=== PATIENT | female | born 1985 | race African-American/Black ===

== ENCOUNTER 2016-12-04 13:09 | Emergency (ER) | payer MEDICAID ==
[~2016-12-04] VITALS: Ht 152.4 cm; Wt 52.2 kg
[~2016-12-04 13:09] MED LIST: BREA1EAC5 MC; CEFU250T PO; CEPH-507 PO; CIPR-225 PO; CIPR500T4 PO; CRS350T PO; DCS100C PO; FAMO20TA5 PO; HYDR-3454 PO; HYDR-3720 PO; HYDR-3812 PO; HYDR-757 PO; IBP800T PO; MAGN800O PO; METR500T PO; METR500T21 PO; NAPR-243 PO; NITR100C3 PO; OMG1KC PO; ONDA4TAB8 PO; ONDAN4ODT PO; OXYC-202 PO; OXYC-465 PO; PNT40TEC PO; PREN1TAB71 PO; PROM25TA14 PO; SULF1TAB35 PO; TRM50T PO
--- OUTSIDE RECORDS SUMMARY | 2016-12-04 13:14 | XMS REPORT | Continuity of Care Document ---
Author Author [facility] Organization [facility] Address Unknown Phone Unavailable Care Team Providers Care Feather Separator Name Role Phone Self, Referral PCP Unavailable Source Comments Some departments are not documenting in the electronic medical record. If you do not see the information that you expected, contact Release of Information in the Health Information Management department at [phone] for further assistance in locating additional records.[facility] Active Allergies and Adverse Reactions No Known Allergies Current Medications Prescription Sig. Disp. Refills Start End Date Status Date oxycodone/acetaminophen Take 1-2 Tabs by mouth 30 0 06/25/20 Active (PERCOCET) 5/325 mg Every 4-6 Hours as needed 08 tablet for Pain. ibuprofen (MOTRIN) 600 mg Take 1 Tab by mouth Every 30 0 06/25/20 Active tablet 6 Hours as needed for 08 Pain. docusate (COLACE) 100 mg Take 1 Cap by mouth Twice 60 1 06/25/20 Active capsule Daily as needed for 08 Constipation. ferrous sulfate (IRON) Take 1 Tab by mouth Twice 60 1 06/25/20 Active 325 mg (65 mg Iron) Daily With Meals. 08 tablet Active Problems Problem Noted Date 06/25/2008 Anemia of mother, with delivery(648.21) 06/25/2008 Premature rupture of membranes in , delivered 06/25/2008 Social History Tobacco Use Types Packs/Day Years Used Date Former Smoker Cigarettes 0.25 Quit: 12/26/2007 Alcohol Use Drinks/Week oz/Week Comments No Last Filed Vital Signs Vital Sign Reading Time Taken Blood Pressure 116/72 06/25/2008 3:00 PM CDT Pulse 106 06/25/2008 3:00 PM CDT Temperature 37.3 C (99.1 F) 06/25/2008 3:00 PM CDT Respiratory Rate - - Height 1.524 m (5') 06/22/2008 8:00 AM CDT Weight 65.318 kg (144 lb) 06/22/2008 8:00 AM CDT Body Mass Index 28.12 06/22/2008 8:00 AM CDT Oxygen Saturation 100% 06/25/2008 3:00 PM CDT Plan of Care Health Maintenance Due Date Last Done Comments Physical (Comprehensive) 1992 Exam Pertussis Vaccine 1996 Tetanus Vaccine 2002 Cervical Cancer Screening 2006 Influenza Vaccine 05/27/2016 Results from Last 3 Months Not on file
[2016-12-04] MEDS ORDERED: LIDOCAINE/EPI 1%-1:100,000 (XYLOCAINE) 20ML INJ ONE (14:45)
--- NOTE | 2016-12-04 15:15 | ED Integumentary General ---
General Chief Complaint: Skin/Wound Problems Stated Complaint: SWOLLEN VAGINAL GLAND Nursing Triage Note: PT C/O INFECTED GLAND ON GENITAL AREA. Source: patient Exam Limitations: no limitations History of Present Illness Time seen by provider: 15:14 Initial Comments To ER with a swollen left labia since this morning. She has a history of recurrent left Bartholin's gland abscess. She has had surgical treatment of this by Dr. Treviño last year. Timing/Duration: just prior to arrival Severity: moderate Associated Symptoms: No fever Allergies and Home Medications Allergies Coded Allergies: No Known Drug Allergies (Verified , 01/08/10) Constitutional: see HPINo chills, No fever EENTM: see HPI Respiratory: no symptoms reported Cardiovascular: no symptoms reported Genitourinary: no symptoms reported Musculoskeletal: no symptoms reported Skin: no symptoms reported Psychiatric/Neurological: No Symptoms Reported Endocrine: No Symptoms Reported Hematologic/Lymphatic: No Symptoms Reported Past Bicunhp-Uarrmo-Gcbtvf Hx Patient Social History Type Used: Cigarettes Former Smoker/When Quit: Sep 26, 2011 Recent Foreign Travel: No Contact w/Someone Who Travel: No Recent Infectious Disease Expo: No Recent Hopitalizations: No Immunizations Up To Date Tetanus Booster (TDap): More than 5yrs Seasonal Allergies Seasonal Allergies: Yes Surgeries HX Surgeries: Yes (GLAND REMOVED ON GENITAL AREA. 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 Genitourinary Hx Genitourinary Disorders: No Gastrointestinal Hx Gastrointestinal Disorders: Yes Gastrointestinal Disorders: Pancreatitis Musculoskeletal Hx Musculoskeletal Disorders: No Endocrine Hx Endocrine Disorders: No HEENT HX ENT Disorders: No Cancer Hx Cancer: No Psychosocial Hx Psychiatric Problems: Yes Behavioral Health Disorders: Anxiety, Bipolar, Depression Integumentary HX Skin/Integumentary Disorder: No Blood Transfusions Hx Blood Disorders: No Family Medical History Significant Family History: No Pertinent Family Hx Family Medial History: Congestive heart failure G8 SISTER Family history: Diabetes mellitus G8 SISTER History of - anemia 19 MOTHER G8 SISTER History of - disorder G8 SISTER (MS) No Family History of: Abdominal aortic aneurysm Alcoholism Cancer Dementia Family history: Alzheimer's disease Family history: Arthritis Family history: Asthma Family history: Breast disease Family history: Cardiovascular disease Family history: Gastrointestinal disease Family history: Hypertension Family history: Thyroid disorder Hereditary disease History of - respiratory disease Kidney disease Myocardial infarction Parkinson's disease Prostate cancer Psychotic disorder Seizure disorder Stroke Physical Exam Vital Signs Vital Sign - Last 12Hours 12/04/16 14:27 Temp 99.0 Pulse 85 Resp 18 B/P 128/77 Pulse Ox 100 O2 Delivery Room Air Capillary Refill : Less Than 3 Seconds General Appearance: WD/WN no apparent distress HEENT: PERRL/EOMI normal ENT inspection Neck: non-tender full range of motion Cardiovascular: regular rate, rhythm no murmur Respiratory: normal breath sounds no respiratory distress no accessory muscle use Gastrointestinal: non tender soft Neurologic/Psychiatric: alert normal mood/affect oriented x 3 Skin Problem Character: erythema (and swelling of the left labia.) I&D : Blade Size: 11 Progress Swelling of the left labia. This was anesthetized with 1 percent lidocaine with epinephrine. A stab incision was then made the region of fluctuance. Bloody material was expressed. However upon pressing on this area there was purulent foul-smelling material that was expressed from further within the vaginal canal. Progress/Results/Core Measures Results/Orders My Orders Orders-SASHA CARLSON APRN Lidocaine/Epi 1% 1:100,000 (Xylocaine /E (12/04/16 14:45) Clindamycin Injection (Cleocin Injection (12/04/16 15:45) Oxycodone/Apap 5/325mg Tablet (Percocet (12/04/16 15:45) Vital Signs/I&O Vital Sign - Last 12Hours 12/04/16 14:27 Temp 99.0 Pulse 85 Resp 18 B/P 128/77 Pulse Ox 100 O2 Delivery Room Air Blood Pressure Mean: 94 Departure Impression Impression: Primary Impression: Left genital labial abscess Disposition: HOME, SELF-CARE Condition: Stable Departure-Patient Inst. Decision time for Depature: 15:45 Referrals: [facility] (PCP/Family) Primary Care Physician Patient Instructions: Bartholin's Gland Cyst Add. Discharge Instructions: 1. Follow-up with Dr. Treviño 2. Pain medication, antibiotics and warm baths as directed. Warm baths should be at least twice per day. 3. Return to ER for any worsening swelling, fevers or other concerns 4. Start the antibiotics today. I sent them to her pharmacy. All discharge instructions reviewed with patient and/or family. Voiced understanding. Scripts Clindamycin HCl 300 Mg [id number] Mg PO TID #21 CAP Prov:SASHA CARLSON APRN 12/04/16 Hydrocodone/Acetaminophen ([place] 5-325 Tablet)1 Each Tablet1 Each PO Q4H PRN PAIN #20 TAB Do not fill unless clindamycin is also filled. Prov:SASHA CARLSON APRN 12/04/16 SASHA CARLSON APRN Dec 04, 2016 15:15
[2016-12-04] MEDS ORDERED: CLINDAMYCIN 600 MG/4ML (CLEOCIN) VIAL IM ONE (15:45)
[2016-12-04] MEDS ORDERED: oxyCODONE/APAP 5/325MG (PERCOCET 5) TABLET PO ONE (15:45)
[2016-12-04] MEDS ORDERED: CLIN300C11 PO (15:47)
[2016-12-04] MEDS ORDERED: HYDR-757 PO (15:47)
[2016-12-04] MEDS ORDERED: CLINDAMYCIN 300 MG/2ML (CLEOCIN) VIAL IM SCH (16:00)
[2016-12-04 16:27] VITALS: BP 128/77
[2016-12-09] MEDS ORDERED: METR500T PO (12:10)
[2016-12-09] MEDS ORDERED: CIPR500S2 PO (12:10)
[2016-12-09] MEDS ORDERED: OXYC-465 PO (12:10)
== END 2016-12-04 16:27 | disposition home or self-care (01) ==
LOC: EDUNIT# 13:09 → ER 13:10
DX: N76.4 Abscess of vulva (principal)
CPT/HCPCS: 96372

== ENCOUNTER 2016-12-09 09:05 | Day surgery (SDC) | payer MEDICAID ==
[~2016-12-09] VITALS: Ht 152.4 cm; Wt 52.3 kg
[~2016-12-09 09:05] MED LIST changes: +CLIN300C11 PO
--- OUTSIDE RECORDS SUMMARY | 2016-12-09 09:12 | XMS REPORT | Continuity of Care Document ---
Author Author [facility] Organization [facility] Address Unknown Phone Unavailable Care Team Providers Care Drapery And Upholstery Estimator Name Role Phone Self, Referral PCP Unavailable Source Comments Some departments are not documenting in the electronic medical record. If you do not see the information that you expected, contact Release of Information in the Health Information Management department at [phone] for further assistance in locating additional records.[facility] Active Allergies and Adverse Reactions No Known [...]
[2016-12-09] MEDS ORDERED: fentaNYL INJECTION 100 MCG/2 ML AMP IVP ONE (10:15)
[2016-12-09 10:33] LABS: BASOPHILS % (AUTO) 0 % (0-10); EOSINOPHILS # (AUTO) 0.2 10^3/uL (0.0-0.3); EOSINOPHILS % (AUTO) 2 % (0-10); LYMPHOCYTES # (AUTO) 2.3 X 10^3 (1.0-4.0); LYMPHOCYTES % (AUTO) 19 % (12-44); MEAN CORPUSCULAR HEMOGLOBIN 28 PG (25-34); MEAN CORPUSCULAR HGB CONC 32 G/DL (32-36); MEAN CORPUSCULAR VOLUME 86 FL (80-99); MONOCYTES # (AUTO) 0.8 X 10^3 (0.0-1.0); MONOCYTES % (AUTO) 7 % (0-12); NEUTROPHILS # (AUTO) 8.5 X 10^3 (1.8-7.8); NEUTROPHILS % (AUTO) 72 % (42-75); PLATELET COUNT 294 10^3/uL (130-400); RED BLOOD COUNT 4.14 10^6/uL (4.35-5.85); RED CELL DISTRIBUTION WIDTH 14.9 % (10.0-14.5); WHITE BLOOD COUNT 11.8 10^3/uL (4.3-11.0)
[2016-12-09] MEDS ORDERED: fentaNYL INJECTION 100 MCG/2 ML AMP IVP STA (10:58)
[2016-12-09] MEDS ORDERED: LIDOCAINE 1% INJ 20 ML (XYLOCAINE) VIAL INJ STA (11:06)
[2016-12-09 11:07] LABS: BILIRUBIN,URINE NEGATIVE (NEGATIVE); KETONES,URINE NEGATIVE (NEGATIVE); LEUKOCYTE ESTERASE ,URINE 3+ (NEGATIVE); NITRITE,URINE NEGATIVE (NEGATIVE); PH,URINE 6.5 (5-9); PROTEIN,URINE NEGATIVE (NEGATIVE); UROBILINOGEN,URINE NORMAL (NORMAL)
[2016-12-09 11:19] LABS: WBC,URINE 50-100 /HPF
[2016-12-09] MEDS ORDERED: LACTATED RINGERS 1,000 ML IV ONE ×2 (11:48→12:23)
--- NOTE | 2016-12-09 11:48 | ED GU-Female ---
General Chief Complaint: Skin/Wound Problems Stated Complaint: VAG ABSCESS Nursing Triage Note: HAD ABCESS DRAINED ON TUESDAY. NOW WORSE TODAY. MOM WITH PT. AT THIS TIME Nursing Sepsis Screen: No Definite Risk History of Present Illness Time seen by provider: 10:50 Initial Comments Evaluation for recurrence of left labial abscess, she has been on clindamycin 300 mg 3 times a day since 12/04/16. She has previously been treated for similar condition on 07/12/15 and had surgery for a marsupialization of the left labia on 07/15/17 Timing/Duration: getting worse Severity/Quality: severe (pain 10 over 10) Activities at Onset: none Prior Genitourinary Problems: similar symptoms Sexual [place] History: less than 2 months ago Modifying Factors: Improves With Analgesics, Improves With Resting Associated Symptoms: denies symptoms Allergies and Home Medications Allergies Coded Allergies: No Known Drug Allergies (Verified , 01/08/10) Home Medications Ciprofloxacin 500 Mg/5 Ml Angelic..rec #14 500 MG PO BID Prescribed by: CASSANDRA SANDOVAL on 12/09/16 1210 Clindamycin HCl 300 Mg Capsule #21 300 MG PO TID Prescribed by: SASHA CARLSON on 12/04/16 1547 Metronidazole 500 Mg Tablet #14 500 MG PO BID Prescribed by: CASSANDRA SANDOVAL on 12/09/16 1210 Oxycodone HCl/Acetaminophen 1 Each Tablet #60 1-2 TAB PO Q4H PRN PRN PAIN Prescribed by: CASSANDRA SANDOVAL on 12/09/16 1210 Constitutional: no symptoms reported see HPI EENTM: see HPI Respiratory: no symptoms reported see HPI Cardiovascular: no symptoms reported see HPI Gastrointestinal: no symptoms reported see HPI Genitourinary: see HPI pain (left labia) : No (previous tubal ligation) Musculoskeletal: no symptoms reported see HPI Skin: no symptoms reported see HPI Psychiatric/Neurological: No Symptoms Reported See HPI Endocrine: No Symptoms Reported See HPI Hematologic/Lymphatic: No Symptoms Reported See HPI All Other Systemes Reviewed Negative Unless Noted: Yes Past Zubjahk-Mjtugi-Epatmj Hx Patient Social History Alcohol Use: Rarely Uses Recreational Drug Use: No (drank tonight) Type Used: Cigarettes Former Smoker/When Quit: Sep 26, 2011 Recent Foreign Travel: No Contact w/Someone Who Travel: No Recent Infectious Disease Expo: No Recent Hopitalizations: No Immunizations Up To Date Tetanus Booster (TDap): More than 5yrs Seasonal Allergies Seasonal Allergies: Yes Surgeries HX Surgeries: Yes (GLAND REMOVED ON GENITAL AREA. 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 Genitourinary Hx Genitourinary Disorders: No Gastrointestinal Hx Gastrointestinal Disorders: Yes Gastrointestinal Disorders: Pancreatitis Musculoskeletal Hx Musculoskeletal Disorders: No Endocrine Hx Endocrine Disorders: No HEENT HX ENT Disorders: No Cancer Hx Cancer: No Psychosocial Hx Psychiatric Problems: Yes Behavioral Health Disorders: Anxiety, Bipolar, Depression Integumentary HX Skin/Integumentary Disorder: No Blood Transfusions Hx Blood Disorders: No Reviewed Nursing Assessment Reviewed/Agree w Nursing PMH: Yes Family Medical History Significant Family History: No Pertinent Family Hx Family Medial History: Congestive heart failure G8 SISTER Family history: Diabetes mellitus G8 SISTER History of - anemia 19 MOTHER G8 SISTER History of - disorder G8 SISTER (MS) No Family History of: Abdominal aortic aneurysm Alcoholism Cancer Dementia Family history: Alzheimer's disease Family history: Arthritis Family history: Asthma Family history: Breast disease Family history: Cardiovascular disease Family history: Gastrointestinal disease Family history: Hypertension Family history: Thyroid disorder Hereditary disease History of - respiratory disease Kidney disease Myocardial infarction Parkinson's disease Prostate cancer Psychotic disorder Seizure disorder Stroke Physical Exam Vital Signs Vital Sign - Last 12Hours 12/09/16 12/09/16 09:54 12:12 Temp 98.6 Pulse 130 Resp 22 B/P 120/95 Pulse Ox 99 O2 Delivery Room Air Capillary Refill : Less Than 3 Seconds General Appearance: WD/WN no apparent distress HEENT: PERRL/EOMI normal ENT inspection TMs normal pharynx normal Neck: non-tender full range of motion supple normal inspection Cardiovascular: normal peripheral pulses regular rate, rhythm no murmur Respiratory: chest non-tender lungs clear normal breath sounds Gastrointestinal: normal bowel sounds non tender soft Genital/Rectal: tenderness (left labia) other (marked erythema induration and fluctuation left labia, extremely tender to palpation) Extremities: normal range of motion non-tender normal inspection no calf tenderness normal capillary refill Neurologic/Psychiatric: no motor/sensory deficits alert normal mood/affect oriented x 3 Skin: normal color warm/dry Lymphatic: inguinal node tender (L) Focused Exam Lactic Acid Level Progress/Results/Core Measures Results/Orders Lab Results Laboratory Tests Test 12/09/16 10:19 12/09/16 10:54 Range/Units Basophils # (Auto) 0.0 0.0-0.1 10^3/uL Basophils (%) (Auto) 0 0-10 % C-Reactive Protein High Sensitivity 0.85 H 0.00-0.50 MG/DL Eosinophils # (Auto) 0.2 0.0-0.3 10^3/uL Eosinophils (%) (Auto) 2 0-10 % Hematocrit 36 35-52 % Hemoglobin 11.5 11.5-16.0 G/DL Lymphocytes # (Auto) 2.3 1.0-4.0 X 10^3 Lymphocytes (%) (Auto) 19 12-44 % Mean Corpuscular Hemoglobin 28 25-34 PG Mean Corpuscular Hemoglobin Concent 32 32-36 G/DL Mean Corpuscular Volume 86 80-99 FL Mean Platelet Volume 11.0 H 7.4-10.4 FL Monocytes # (Auto) 0.8 0.0-1.0 X 10^3 Monocytes (%) (Auto) 7 0-12 % Neutrophils # (Auto) 8.5 H 1.8-7.8 X 10^3 Neutrophils (%) (Auto) 72 42-75 % Platelet Count 294 130-400 10^3/uL Red Blood Count 4.14 L 4.35-5.85 10^6/uL Red Cell Distribution Width 14.9 H 10.0-14.5 % White Blood Count 11.8 H 4.3-11.0 10^3/uL Ur Tricyclic Antidepressants Screen POSITIVE H NEGATIVE Urine Amphetamines Screen NEGATIVE NEGATIVE Urine Bacteria FEW H /HPF Urine Barbiturates Screen NEGATIVE NEGATIVE Urine Benzodiazepines Screen NEGATIVE NEGATIVE Urine Bilirubin NEGATIVE NEGATIVE Urine Cannabinoids Screen POSITIVE H NEGATIVE Urine Casts NONE /LPF Urine Clarity CLEAR Urine Cocaine Screen POSITIVE H NEGATIVE Urine Color YELLOW Urine Crystals NONE /LPF Urine Culture Indicated YES Urine Glucose (UA) NEGATIVE NEGATIVE Urine Ketones NEGATIVE NEGATIVE Urine Leukocyte Esterase 3+ H NEGATIVE Urine Methadone Screen NEGATIVE NEGATIVE Urine Methamphetamines Screen NEGATIVE NEGATIVE Urine Mucus NEGATIVE /LPF Urine Nitrite NEGATIVE NEGATIVE Urine Opiates Screen POSITIVE H NEGATIVE Urine Oxycodone Screen NEGATIVE NEGATIVE Urine Phencyclidine Screen NEGATIVE NEGATIVE Urine Propoxyphene Screen NEGATIVE NEGATIVE Urine Protein NEGATIVE NEGATIVE Urine RBC 2-5 H /HPF Urine RBC (Auto) 2+ H NEGATIVE Urine Specific [place] 1.010 L 1.016-1.022 Urine Squamous Epithelial Cells 5-10 /HPF Urine Urobilinogen NORMAL NORMAL MG/DL Urine WBC 50-100 H /HPF Urine pH 6.5 5-9 My Orders Orders-BRENDONCATRACHITA FIELD SERVICE CONSULTANT Ua Culture If Indicated (12/09/16 10:51) Fentanyl Injection (Sublimaze Injection (12/09/16 10:58) Lidocaine 1% Injection (Xylocaine 1% Inj (12/09/16 11:06) Urine Culture (12/09/16 10:54) Saline Lock/Iv-Start (12/09/16 11:48) Lactated Ringers (Lr 1000 Ml Iv Solution (12/09/16 11:48) Medications Given in ED Current Medications Medications Dose Ordered Sig/Deniz Route Start Time Stop Time Status Last Admin Dose Admin Fentanyl Citrate 75 mcg 75 mcg ONCE ONCE IVP 12/09/16 10:15 12/09/16 10:16 DC 12/09/16 10:23 75 MCG Lactated Ringer's 1,000 ml @ 0 mls/hr Q0M ONCE IV 12/09/16 11:48 12/09/16 11:49 DC 12/09/16 11:53 1,000 MLS/HR Vital Signs/I&O Vital Sign - Last 12Hours 12/09/16 12/09/16 12/09/16 12/09/16 09:54 12:12 14:20 14:50 Temp 98.6 98.6 98.7 Pulse 130 74 77 78 Resp 22 16 18 16 B/P 120/95 105/72 102/71 Pulse Ox 99 98 99 O2 Delivery Room Air Room Air Room Air Blood Pressure Mean: 103 Progress Note : Time: 10:50 Progress Note Evaluation for recurrence of abscess left labia. Patient had an I&D on 12/04/16 and was started on clindamycin 300 mg 3 times a day she's been taking this routinely. She is rating her pain at 10 out of 10, she's had fentanyl 75 g IV, will give her an additional 50 mg micrograms IV. Discussed with Dr. Treviño per phone, he recommended I&D with placement of a Word drain. Patient to remain nothing by mouth, until further tx. 1130 pain now 5 out of 10. No Word drains available, discussed with Dr. Treviño, he will plan to take her for outpatient surgery for I&D or excision of the Bartholin's gland. This was discussed with the patient she agrees with this treatment plan. 1150 after Kamila in the emergency department to evaluate patient Departure Impression Impression: Primary Impression: Abscess of Bartholin's gland Disposition: ADMITTED INPATIENT Condition: Stable Decision to Admit Reason: Admit from ER (General) Decision to Admit/Date: Dec 09, 2016 Time/Decision to Admit Time: 11:40 Departure-Patient Inst. Referrals: [facility] (PCP/Family) Primary Care Physician Scripts Ciprofloxacin (Cipro)500 Mg/5 Ml Angelic.[id number] Mg PO BID #14 TAB Prov:CASSANDRA TREVIÑO MD 12/09/16 Metronidazole (Flagyl)500 Mg [id number] Mg PO BID #14 TAB Prov:CASSANDRA TREVIÑO MD 12/09/16 Oxycodone HCl/Acetaminophen (Oxycodone-Acetaminophen 10-325)1 Each Tablet1-2 Tab PO Q4H PRN PAIN #60 TAB Prov:CASSANDRA TREVIÑO MD 12/09/16 CATRACHITA OLIVAS Dec 09, 2016 11:47
--- OUTSIDE RECORDS SUMMARY | 2016-12-09 11:55 | XMS REPORT | Continuity of Care Document ---
Author Author [facility] Organization [facility] Address Unknown Phone Unavailable Care Team Providers Care Lumber Tripper Name Role Phone Self, Referral PCP Unavailable Source Comments Some departments are not documenting in the electronic medical record. If you do not see the information that you expected, contact Release of Information in the Health Information Management department at [phone] for further assistance in locating additional records.[facility] Active Allergies and Adverse Reactions No [...]
--- OUTSIDE RECORDS SUMMARY | 2016-12-09 11:55 | XMS REPORT | Continuity of Care Document ---
Author Author [facility] Organization [facility] Address Unknown Phone Unavailable Care Team Providers Care Resource Manager Forester Name Role Phone Self, Referral PCP Unavailable Source Comments Some departments are not documenting in the electronic medical record. If you do not see the information that you expected, contact Release of Information in the Health Information Management department at [phone] for further assistance in locating additional records.[facility] Active Allergies and Adverse Reactions No Known [...]
[2016-12-09] MEDS ORDERED: CIPR500S2 PO (12:10)
[2016-12-09] MEDS ORDERED: METR500T PO (12:10)
[2016-12-09] MEDS ORDERED: OXYC-465 PO (12:10)
--- NOTE | 2016-12-09 12:11 | Discharge Instructions ---
Discharge Instructions Discharge Medications New, Converted or Re-Newed RX: RX on Chart Patient Instructions Patient Instructions: as directed Return to The Hospital For: as directed Activity & Diet Discharge Diet: No Restrictions Activity as Tolerated: Yes Orders-Post D/C & Referrals Follow Up Appt: Call to make follow up appt. for patient in 2 weeks. Activity: Rest for 24 hours, than as tolerated. Wound Care: Keep incisions clean and dry. Wash daily with soap and water. Please call in RX to patient pharmacy. Diet: As tolerated-Clear Liquids only if nauseated. Tomorrow, may shower or tub bathe as desired. No driving for 24 hours, no alcoholic beverages for 24 hours, and nothing per vagina (no tampons, douching, or intercourse) for 2 weeks. Patient to return to the clinic as soon as possible for: Temperature greater than 101F, Severe Pain, Foul discharge from incision or vagina, Excessive Bleeding (more than a period). CASSANDRA GUILLERMO MD Dec 09, 2016 12:11
[2016-12-09] MEDS ORDERED: KETOROLAC 30 MG/ML VIAL IVP ONE (12:15)
[2016-12-09] MEDS ORDERED: PROMETHAZINE INJ 25 MG/ML (PHENERGAN) AMP IM ONE (12:15)
[2016-12-09] MEDS ORDERED: MEPERIDINE (DEMEROL) INJ 100 MG/ML IM ONE (12:15)
--- NOTE | 2016-12-09 12:16 | History & Physical ---
History and Physical this patient is a 32-year-old 3 black female with recurrent left or ABSCESS. SHE REPORTS HAVING HAD 6 OF THESE IN THE LAST FEW YEARS. RECENTLY 10 AT 2016 SHE HAD THE SAME ABSCESS MARSUPIALIZED. SHE WAS SEEN IN THE ED 3 DAYS AGO FOR I&D OF THE LEFT OR PROLAPSE S. SHE WAS STARTED ON ANTIBIOTICS. THE ABSCESS HAS SINCE RECURRED. THE EMERGENCY DEPARTMENT DOES not FEEL THAT THEY CAN ADEQUATELY TREAT THIS. I discussed with the patient and recommendation at this point is to return to the OR and again marsupialize this abscess. When she is fully recovered we'll give consideration to additional surgery to completely excise the left Bartholin gland itself. currently the patient agrees with that plan. Allergies are none Medications are Cleocin 300 mg 3 a day Past medical history is negative Past surgical history includes 3 C-sections I&D of this Bartholin abscess several occasions and marsupialization on one other occasion OB history includes 4 pregnancies with 3 C-sections and 1 miscarriage patient's menstrual formula 16/regular/5 current contraception is tubal sterilization Family history is noncontributory Patient is has active or alcohol use. She does use some marijuana. History of system is as per above H ENT exam is normal Neck is supple no lymphadenopathy no thyromegaly Abdomen is soft nontender nondistended Extremities show no clubbing cyanosis. There is no Homans sign. There is a left Bartholin abscess Laboratory Tests Test 12/09/16 10:19 12/09/16 10:54 Range/Units Basophils # (Auto) 0.0 0.0-0.1 10^3/uL Basophils (%) (Auto) 0 0-10 % C-Reactive Protein High Sensitivity 0.85 H 0.00-0.50 MG/DL Eosinophils # (Auto) 0.2 0.0-0.3 10^3/uL Eosinophils (%) (Auto) 2 0-10 % Hematocrit 36 35-52 % Hemoglobin 11.5 11.5-16.0 G/DL Lymphocytes # (Auto) 2.3 1.0-4.0 X 10^3 Lymphocytes (%) (Auto) 19 12-44 % Mean Corpuscular Hemoglobin 28 25-34 PG Mean Corpuscular Hemoglobin Concent 32 32-36 G/DL Mean Corpuscular Volume 86 80-99 FL Mean Platelet Volume 11.0 H 7.4-10.4 FL Monocytes # (Auto) 0.8 0.0-1.0 X 10^3 Monocytes (%) (Auto) 7 0-12 % Neutrophils # (Auto) 8.5 H 1.8-7.8 X 10^3 Neutrophils (%) (Auto) 72 42-75 % Platelet Count 294 130-400 10^3/uL Red Blood Count 4.14 L 4.35-5.85 10^6/uL Red Cell Distribution Width 14.9 H 10.0-14.5 % White Blood Count 11.8 H 4.3-11.0 10^3/uL Urine Bacteria FEW H /HPF Urine Bilirubin NEGATIVE NEGATIVE Urine Casts NONE /LPF Urine Clarity CLEAR Urine Color YELLOW Urine Crystals NONE /LPF Urine Culture Indicated YES Urine Glucose (UA) NEGATIVE NEGATIVE Urine Ketones NEGATIVE NEGATIVE Urine Leukocyte Esterase 3+ H NEGATIVE Urine Mucus NEGATIVE /LPF Urine Nitrite NEGATIVE NEGATIVE Urine Protein NEGATIVE NEGATIVE Urine RBC 2-5 H /HPF Urine RBC (Auto) 2+ H NEGATIVE Urine Specific [place] 1.010 L 1.016-1.022 Urine Squamous Epithelial Cells 5-10 /HPF Urine Urobilinogen NORMAL NORMAL MG/DL Urine WBC 50-100 H /HPF Urine pH 6.5 5-9 work is as noted Assessment and plan left Bartholin abscess and possible UTI. Patient will undergo marsupialization of the Bartholin abscess. She'll be started on Flagyl and Cipro postoperatively which will cover a bladder infection empirically in any event and will be followed up in clinic in 2 weeks. Surgical risk recovery follow-up and potential complications were all reviewed. All of her questions rash. recurrent left Bartholin abscess Allergies and Home Medications Allergies Coded Allergies: No Known Drug Allergies (Verified , 01/08/10) Home Medications Ciprofloxacin 500 Mg/[address] [facility].rec #14 500 MG PO BID Prescribed by: CASSANDRA SANDOVAL on 12/09/16 1210 Clindamycin HCl 300 Mg Capsule #21 300 MG PO TID Prescribed by: SASHA CARLSON on 12/04/16 1547 Metronidazole 500 Mg Tablet #14 500 MG PO BID Prescribed by: CASSANDRA SANDOVAL on 12/09/16 1210 Oxycodone HCl/Acetaminophen 1 Each Tablet #60 1-2 TAB PO Q4H PRN PRN PAIN Prescribed by: CASSANDRA SANDOVAL on 12/09/16 1210 CASSANDRA GUILLERMO MD Dec 09, 2016 12:16
[2016-12-09] MEDS ORDERED: SEVOFLURANE (ULTANE) 15 ML INHAL SOLN ONE (12:23)
[2016-12-09] MEDS ORDERED: ONDANSETRON 4 MG/2 ML (SDV) Z0FRAN ONE (12:23)
[2016-12-09] MEDS ORDERED: fentaNYL INJECTION 100 MCG/2 ML AMP ONE (12:23)
[2016-12-09] MEDS ORDERED: proPOfol 200 MG/20 ML (DIPRIVAN) VIAL IV ONE (12:23)
[2016-12-09] MEDS ORDERED: SUCCINYLCHOLINE INJ 100 MG/5 ML SYR ONE (12:23)
[2016-12-09] MEDS ORDERED: MIDAZOLAM 2 MG/2 ML (VERSED) VIAL ONE (12:24)
[2016-12-09] MEDS ORDERED: morphine INJ 10 MG/ML 1ML (SYR OR VIAL) ONE (13:08)
[2016-12-09] MEDS ORDERED: HYDROmorphone (DILAUDID) 2 MG/ML VIAL IVP PRN (13:15)
[2016-12-09] MEDS ORDERED: ONDANSETRON 4 MG/2 ML (SDV) Z0FRAN IVP PRN (13:15)
[2016-12-09] MEDS ORDERED: morphine INJ 10 MG/ML 1ML (SYR OR VIAL) IVP PRN (13:15)
[2016-12-09] MEDS ORDERED: MEPERIDINE (DEMEROL) INJ 50 MG/ML IVP PRN (13:15)
[2016-12-09 14:20] VITALS: BP 105/72
[2016-12-09 14:50] VITALS: BP 102/71
[2016-12-09 15:10] VITALS: BP 118/72
[2016-12-09] MEDS: oxyCODONE/APAP 10/325MG (PERCOCET 10) TABLET PO PRN ×2 (15:29→20:58)
[2016-12-09] MEDS: D5 LR IV SOLUTION 1,000 ML IV SCH ×2 (15:29→20:06)
[2016-12-09] MEDS ORDERED: FLU TRIvalent (5 YOA+) 2016-17 (AFLURIA) 0.5 ML IM ONE (17:15)
[2016-12-09] MEDS: ONDANSETRON 4 MG/2 ML (SDV) Z0FRAN IVP PRN ×2 (19:25→23:50)
[2016-12-09 19:30] VITALS: BP 124/83
[2016-12-10] VITALS: BP 114/86
[2016-12-10] MEDS: D5 LR IV SOLUTION 1,000 ML IV SCH ×2 (03:15→07:54)
[2016-12-10] MEDS: oxyCODONE/APAP 10/325MG (PERCOCET 10) TABLET PO PRN ×3 (03:15→13:15)
[2016-12-10 04:00] VITALS: BP 113/74
[2016-12-10] MEDS: ONDANSETRON 4 MG/2 ML (SDV) Z0FRAN IVP PRN ×2 (04:24→08:28)
--- NOTE | 2016-12-10 07:40 | OPERATIVE REPORT ---
PROCEDURE PHYSICIAN: CASSANDRA GUILLERMO DATE OF PROCEDURE: 12/09/2016 DATE OF DICTATION: 12/09/2016 PREOPERATIVE DIAGNOSIS: Left Bartholin abscess. POSTOPERATIVE DIAGNOSIS: Left Bartholin abscess. OPERATIVE PROCEDURE: Marsupialization of left Bartholin abscess. OPERATIVE DESCRIPTION: With the patient in supine position, under satisfactory general anesthesia, she was repositioned in dorsal lithotomy position in the [facility] cane stirrups and prepped and draped in the usual fashion for vaginal surgery. The urinary bladder was emptied with a straight catheter. The patient had a large 3 cm abscess involving the inferior 3rd of her labia majora. A suture of 3-0 Vicryl was placed into and out of the abscess. Another suture was placed parallel to that and then incision was made between the 2 sutures. Both the midportion of each suture was then brought out through the opening cut in the middle and essentially tacked in the four cardinal locations, anterior, posterior, left and right lateral of the opening made into the cyst cavity. Large amount of purulent material was released on opening it. Culture for aerobes and anaerobes was obtained. Suture of number 3-0 Vicryl was then used between each of the cardinal stitches to affect marsupialization by suturing the skin to the cyst cavity lining. The 4 cardinal sutures were then tied as well, effectively marsupializing nicely the cyst. The cyst was irrigated before, during, and after the marsupialization. The speculum was placed in the vagina. The cervix exposed and a Gen-Probe was obtained to rule out the infectious etiology for her vaginal discharge as well. Sponge and needle counts were correct on completion of the procedure. Estimated blood loss was fairly minimal. The patient tolerated the procedure well, and was uneventfully awakened from general anesthesia and transferred to recovery room in stable condition with plans for discharge home PAR. Job ID: [id number] Dictated Date: 12/09/2016 12:54:37 Inserting Machine Operator Date: 12/10/2016 07:33:25 / jessica
--- NOTE | 2016-12-10 07:59 | Progress Note-Standard ---
Standard Progress Note Progress Notes/Assess & Plan Progress/Assessment & Plan Uma's without complaint. She feels markedly improved this morning. She is ambulating, voiding, told feel well has good pain control. Vital Signs Date Time Temp Pulse Resp B/P Pulse Ox O2 Delivery O2 Flow Rate FiO2 12/10/16 04:00 97.5 95 20 113/74 100 Room Air 12/10/16 00:00 97.9 78 20 114/86 100 Room Air 12/09/16 19:30 98.5 75 20 124/83 100 Room Air 12/09/16 15:15 Room Air 12/09/16 15:10 98.5 74 20 118/72 100 Room Air 12/09/16 14:50 98.7 78 16 102/71 99 Room Air 12/09/16 14:20 98.6 77 18 105/72 98 Room Air 12/09/16 12:12 74 16 99 12/09/16 09:54 98.6 130 22 120/95 Room Air I & O 12/10/16 07:00 Intake Total 2080 ml Output Total 1455 ml Balance 625 ml vital signs are stable. Patient afebrile. Abdomen is benign. Extremities show no clubbing cyanosis. No Homans sign. Assessment and plan status post marsupialization of left Bartholin abscess. Plan is for discharge home with follow-up in clinic Final Diagnosis the Bartholin abscess status post marsupialization CASSANDRA GUILLERMO MD Dec 10, 2016 7:59 am
[2016-12-10 08:00] VITALS: BP 125/84
[2016-12-10 12:00] VITALS: BP 128/84
[2016-12-31] MEDS ORDERED: CIPR250T3 PO (12:27)
[2016-12-31] MEDS ORDERED: OXYC-465 PO (12:27)
== END 2016-12-10 14:15 | disposition home or self-care (01) ==
LOC: EDUNIT# 09:05 → ER 09:08 → SDC 11:51 → 4TH 15:10 → SDC 12-10 14:15
PROVIDERS: ATTEND Obstetrics & Gynecology
DX: N75.1 Abscess of Bartholin's gland (principal)
CPT/HCPCS: 36415; 80306; 81000; 85025; 86141; 87070; 87075; 87077; 87088; 87186; 87205; 96374; 96376

== ENCOUNTER 2016-12-30 05:36 | Outpatient (CLI) | payer MEDICAID ==
[~2016-12-30] VITALS: Ht 152.4 cm; Wt 52.3 kg
[~2016-12-30 05:36] MED LIST changes: +CIPR500S2 PO
[2016-12-30] MEDS ORDERED: CIPR250T3 PO (12:37)
[2016-12-31] MEDS ORDERED: CIPR250T3 PO (12:27)
[2016-12-31] MEDS ORDERED: OXYC-465 PO (12:27)
== END 2016-12-30 13:18 ==
LOC: PREOP 05:36
PROVIDERS: ATTEND Obstetrics & Gynecology
DX: Z01.818 Encounter for other preprocedural examination (principal); N76.4 Abscess of vulva; D64.9 Anemia, unspecified

== ENCOUNTER 2016-12-31 11:11 | Day surgery (SDC) | payer MEDICAID ==
[~2016-12-31] VITALS: Ht 152.4 cm; Wt 52.3 kg
--- NOTE | 2016-12-31 07:04 | HISTORY AND PHYSICAL ---
DATE OF ADMISSION: 12/31/2016 DICTATING PHYSICIAN: Dr. Treviño. This patient is a 31-year-old G3, P3, LC 3 black female with chronic recurrent left Bartholin abscess. She has a left labial chronically infected mass. She has a fleshy mass on the right labia majora as well. She has had surgery over the last 6 months, 3 or 4 times for the left inferior labia majora abscesses. The plan is for an excision of the chronically infected mass as well as excision of the right labia majora fleshy lesion as well. The patient denies nausea or vomiting. She denies fever or chills. She is on antibiotics to suppress this abscess. ALLERGIES: None. MEDICATIONS: Cipro 250 mg twice a day. PAST MEDICAL HISTORY: Negative. PAST SURGICAL HISTORY: 1. The patient had deliveries x3. 2. She has had left Bartholin gland marsupialization twice within the last 2 years. 3. She had I\T\D of the left Bartholin's gland abscess at least 2 times and possibly 3 times in the last 2 years. OBSTETRIC HISTORY INCLUDES: C-sections x3. SPEECH LANGUAGE ASSISTANT HISTORY: 1. The patient menstrual formula is 16/regular/5. 2. Last Pap smear was performed at an outside clinic and I do not have the result. FAMILY HISTORY: Family history is negative for breast cancer, SPEECH LANGUAGE ASSISTANT cancer, diabetes or hereditary diseases. SOCIAL HISTORY: The patient is . She is a student. She uses occasional marijuana. She denies alcohol use. She has had chlamydia at some point in the past. PHYSICAL EXAM: HEENT: Normal. NECK: Supple with no lymphadenopathy. No thyromegaly. HEART: Regular rhythm with no murmur. CHEST: Clear to auscultation bilaterally. ABDOMEN: Soft, nontender, nondistended. EXTREMITIES: Extremities show no clubbing or cyanosis. There is no Homans sign. There is no peripheral edema. PELVIC EXAM: Reveals a normal internal and external genitalia except for an indurated somewhat erythematous mass involving the inferior 25 to 35% of the labia majora. There is a smaller fleshy mass at the superior margin of the right labia majora. This is approximately 6 mm in diameter. The introitus is normal as is the vaginal vault and the uterus. 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 PLAN: For definitive excision of this skin area and lesion from the left labia majora. The patient also has a right labia majora fleshy skin lesion that will be excised concurrently. Surgical risks, complications, recovery and follow-up have been fully discussed. The patient questions have been answered to her satisfaction. She is ready to proceed with the surgery. The patient was given Cipro 500 mg twice a day to take for the next week to suppress infection and inflammation in the intended surgical areas. Job ID: [id number] Dictated Date: 12/24/2016 11:22:00 Account Financial Manager Date: 12/24/2016 12:47:49/geovanna
[~2016-12-31 11:11] MED LIST changes: +CIPR250T3 PO
[2016-12-31] MEDS ORDERED: NS (IVPB) 50 ML ONE (11:16)
[2016-12-31] MEDS ORDERED: ceFAZolin 1,000 MG (ANCEF) VIAL ONE (11:16)
[2016-12-31] MEDS ORDERED: ceFAZolin 1 GM/NS 50 ML IVPB IV ONE ×2 (11:30)
[2016-12-31 12:00] VITALS: BP 120/84
[2016-12-31] MEDS ORDERED: MIDAZOLAM 2 MG/2 ML (VERSED) VIAL ONE (12:15)
[2016-12-31] MEDS ORDERED: proPOfol 200 MG/20 ML (DIPRIVAN) VIAL IV ONE ×2 (12:15→12:43)
[2016-12-31] MEDS ORDERED: ONDANSETRON 4 MG/2 ML (SDV) Z0FRAN ONE (12:15)
[2016-12-31] MEDS ORDERED: LIDOCAINE PF 2% 10 ML (XYLOCAINE) AMP ONE (12:15)
[2016-12-31] MEDS ORDERED: fentaNYL INJECTION 100 MCG/2 ML AMP ONE (12:15)
[2016-12-31] MEDS ORDERED: LACTATED RINGERS 1,000 ML IV ONE (12:15)
[2016-12-31] MEDS ORDERED: SCOPOLAMINE 1.5 MG (TRANSDERM-SCOP) PATCH ONE (12:18)
[2016-12-31] MEDS ORDERED: LACTATED RINGERS 1,000 ML IV PRN (12:20)
--- NOTE | 2016-12-31 12:26 | Progress Note-Pre Operative ---
Pre-Operative Progress Note H&P Reviewed The H&P was reviewed, patient examined and no changes noted. Date H&P Reviewed: Dec 31, 2016 Time H&P Reviewed: 12:25 Pre-Operative Diagnosis: REPEAT CURRENT LEFT bARTHOLIN ABSCESS, RIGHT LABIA SKIN MASS CASSANDRA GUILLERMO MD Dec 31, 2016 12:26 pm
[2016-12-31] MEDS ORDERED: OXYC-465 PO (12:27)
[2016-12-31] MEDS ORDERED: CIPR250T3 PO (12:27)
--- NOTE | 2016-12-31 12:29 | Discharge Instructions ---
Discharge Instructions Discharge Medications New, Converted or Re-Newed RX: RX on Chart Patient Instructions Patient Instructions: DIRECTED Return to The Hospital For: DIRECTED Activity & Diet Discharge Diet: No Restrictions Activity as Tolerated: Yes Orders-Post D/C & Referrals Follow Up Appt: Call to make follow up appt. for patient in 1 week. Activity: Rest for 24 hours, than as tolerated. Wound Care: Keep incisions clean and dry. Wash daily with soap and water. Diet: As tolerated-Clear Liquids only if nauseated. Tomorrow, may shower or tub bathe as desired. No driving for 24 hours, no alcoholic beverages for 24 hours. Patient to return to the clinic as soon as possible for: Temperature greater than 101F, Severe Pain, Foul discharge from incision or vagina, Excessive Bleeding (more than a period). CASSANDRA GUILLERMO MD Dec 31, 2016 12:29 pm
[2016-12-31] MEDS ORDERED: SCOPOLAMINE 1.5 MG (TRANSDERM-SCOP) PATCH TOP ONE (12:30)
[2016-12-31] MEDS ORDERED: KETOROLAC 30 MG/ML VIAL IVP ONE (12:30)
[2016-12-31] MEDS ORDERED: FAMOTIDINE 20MG/2ML IV (PEPCID) IV ONE (12:30)
[2016-12-31] MEDS ORDERED: ONDANSETRON 4 MG/2 ML (SDV) Z0FRAN IV ONE (12:30)
[2016-12-31] MEDS ORDERED: MEPERIDINE (DEMEROL) INJ 100 MG/ML IM ONE (12:30)
[2016-12-31] MEDS ORDERED: PROMETHAZINE INJ 25 MG/ML (PHENERGAN) AMP IM ONE (12:30)
[2016-12-31] MEDS ORDERED: BUPIVACAINE 0.25% 30 ML (SENSORCAINE) VIAL ONE (12:35)
[2016-12-31] MEDS ORDERED: DEXAMETHASONE PF 10 MG/ML (DECADRON) VIAL ONE (12:55)
[2016-12-31] MEDS ORDERED: SEVOFLURANE (ULTANE) 15 ML INHAL SOLN ONE (13:17)
[2016-12-31] MEDS ORDERED: morphine INJ 10 MG/ML 1ML (SYR OR VIAL) ONE (13:22)
[2016-12-31] MEDS: morphine INJ 10 MG/ML 1ML (SYR OR VIAL) IVP PRN ×2 (13:25→13:30)
[2016-12-31] MEDS ORDERED: PROMETHAZINE INJ 25 MG/ML (PHENERGAN) AMP IVP PRN (13:30)
[2016-12-31] MEDS ORDERED: ONDANSETRON 4 MG/2 ML (SDV) Z0FRAN IVP PRN (13:30)
[2016-12-31] MEDS ORDERED: HYDROmorphone (DILAUDID) 2 MG/ML VIAL IVP PRN (13:30)
[2016-12-31] MEDS ORDERED: KETOROLAC 30 MG/ML VIAL ONE (13:34)
[2016-12-31 14:30] VITALS: BP 135/85
[2016-12-31] MEDS: oxyCODONE/APAP 10/325MG (PERCOCET 10) TABLET PO PRN ×3 (14:54→23:47)
[2016-12-31] MEDS: D5 LR IV SOLUTION 1,000 ML IV SCH ×2 (14:54→23:02)
[2016-12-31 15:25] VITALS: BP 117/77
[2016-12-31] MEDS: ONDANSETRON 4 MG/2 ML (SDV) Z0FRAN IVP PRN ×2 (17:46→21:57)
[2016-12-31 19:25] VITALS: BP 116/84
[2016-12-31 23:11] VITALS: BP 115/72
[2017-01-01] MEDS: oxyCODONE/APAP 10/325MG (PERCOCET 10) TABLET PO PRN ×2 (04:13→08:11)
[2017-01-01] MEDS: ONDANSETRON 4 MG/2 ML (SDV) Z0FRAN IVP PRN ×2 (04:14→08:14)
[2017-01-01 04:15] VITALS: BP 111/75
[2017-01-01] MEDS: D5 LR IV SOLUTION 1,000 ML IV SCH (06:58)
[2017-01-01 08:13] VITALS: BP 98/67
--- NOTE | 2017-01-01 10:04 | Progress Note-Standard ---
Standard Progress Note Progress Notes/Assess & Plan Progress/Assessment & Plan Patient is without complaint Vital Signs Date Time Temp Pulse Resp B/P (MAP) Pulse Ox O2 Delivery O2 Flow Rate FiO2 01/01/17 08:13 97.0 86 20 98/67 100 Room Air 01/01/17 04:15 97.5 72 18 111/75 100 Room Air 12/31/16 23:11 97.3 83 17 115/72 100 Room Air 12/31/16 19:25 97.8 80 18 116/84 99 Room Air 12/31/16 15:25 97.3 73 18 117/77 100 Room Air 12/31/16 14:30 96.8 59 24 135/85 95 Room Air 12/31/16 13:35 97.9 12/31/16 13:30 97.6 12/31/16 13:25 97.6 12/31/16 12:00 98.2 77 18 120/84 100 Room Air I & O 01/01/17 07:00 Intake Total 3860 ml Output Total 600 ml Balance 3260 ml Abd is benign Ext show no clubbing, cycnosis, there is no Idalmis sign A/P Home with followup in clinic Final Diagnosis Left bartholin mass CASSANDRA GUILLERMO MD Jan 01, 2017 10:04 am
--- NOTE | 2017-01-01 10:06 | Discharge Instructions ---
Discharge Instructions Discharge Medications New, Converted or Re-Newed RX: RX on Chart Patient Instructions Patient Instructions: as directed Return to The Hospital For: as directed Activity & Diet Discharge Diet: No Restrictions Activity as Tolerated: Yes Orders-Post D/C & Referrals Follow Up Appt: return to clinic with me on Tuesday, January 07, 2017 at 930 a.m. for incision check Activity: Rest for 24 hours, than as tolerated. Wound Care: Keep incisions clean and dry. Wash daily with soap and water Diet: As tolerated-Clear Liquids only if nauseated. may shower or tub bathe as desired. Patient to return to the clinic as soon as possible for: Temperature greater than 101F, Severe Pain, Foul discharge from incision or vagina, Excessive Bleeding (more than a period). CASSANDRA GUILLERMO MD Jan 01, 2017 10:06 am
[2017-01-01 11:30] VITALS: BP 98/67
--- NOTE | 2017-01-01 11:30 | OPERATIVE REPORT ---
PROCEDURE PHYSICIAN: CASSANDRA GUILLERMO DATE OF PROCEDURE: 12/31/2016 DATE OF DICTATION: 12/31/2016 PREOPERATIVE DIAGNOSIS: Left Bartholin gland abscess recurrence with left Bartholin gland mass and left labial mass, as well as a right labia majora mass. POSTOPERATIVE DIAGNOSIS: Left Bartholin gland abscess recurrence with left Bartholin gland mass and left labial mass, as well as a right labia majora mass. OPERATIVE PROCEDURE: Partial vulvectomy of the right labia majora for removal of the mass and left partial vulvectomy with left Bartholin gland complete excision. OPERATIVE DESCRIPTION: With the patient in the supine position, under satisfactory general anesthesia, she was repositioned in dorsal lithotomy position in the [place] stirrups and prepped and draped usual fashion for vaginal and labial surgery. A 2 cm nodular scan mass was present in the inferior left labia majora and a palpable Bartholin mass of approximately 2 cm was prepped as well. There was almost 1 cm nodular lesion at the apex of the right labia majora. That lesion was elevated, removed sharply cutting through the skin, a single suture of 2-0 Vicryl Rapide was used to close that defect. Allis was then placed at the mid left labia majora and the inferior left labia majora and an elliptical incision made removing a section of skin approximately 4 cm in length x 2 cm in width at its midpoint. Dissection was then carried down around the nodular skin mass to remove that in its entirety in conjunction with continued dissection down to the Bartholin gland which was dissected completely free and was a very firm nodular mass of approximately 2 cm in diameter. With that removed and sent for pathology, the defect in the left labia was closed with several deep interrupted sutures of 2-0 Vicryl to affect hemostasis and close the defect. Several additional sutures were used to for additional support and reapproximation in that area and then a deep subcuticular suture was used to bring the skin edges back together and then superficial subcuticular suture of the same was brought to completely reapproximate the skin. Good cosmetic effect and good reapproximation was achieved and good hemostasis was achieved as well. The areas were cleaned and a deep pad was applied. The patient was then uneventfully awakened from general anesthesia and transferred to recovery room in stable condition with plans for discharge home PAR. Sponge and needle counts were correct on completion of the procedure. Estimated blood loss was around 100 mL. The patient tolerated the procedure well. Job ID: [id number] Dictated Date: 12/31/2016 13:15:49 Hard Tile Setter Apprentice Date: 01/01/2017 11:21:13 / jessica
--- NOTE | 2017-01-01 11:49 | Anesthesia-General Post-Op ---
General Patient Condition Mental Status/LOC: Same as Preop Cardiovascular: Satisfactory Nausea/Vomiting: Absent Respiratory: Satisfactory Pain: Controlled Complications: Absent Post Op Complications Complications None Follow Up Care/Instructions Patient Instructions None needed. Anesthesia/Patient Condition Patient Condition Patient is doing well, no complaints, stable vital signs, no apparent adverse anesthesia problems. No complications reported per nursing. JEANNETTE ZENDEJAS CRNA Jan 01, 2017 11:49
--- OUTSIDE RECORDS SUMMARY | 2017-02-03 21:46 | XMS REPORT | Continuity of Care Document ---
Author Author [facility] Organization [facility] Address Unknown Phone Unavailable Care Team Providers Care Director Of Compensation Name Role Phone Self, Referral PCP Unavailable Source Comments Some departments are not documenting in the electronic medical record. If you do not see the information that you expected, contact Release of Information in the Health Information Management department at [phone] for further assistance in locating additional records.[facility] Active Allergies and Adverse Reactions [...] Noted Date 06/25/2008 Anemia of mother, with delivery 06/25/2008 Premature rupture of membranes in , [...] 2002 Cervical Cancer Screening 2006 Influenza Vaccine 05/27/2017 Results from Last 3 Months Not on file
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
--- OUTSIDE RECORDS SUMMARY | 2017-02-03 21:48 | XMS REPORT ---
Author Author JODIE LEON Organization [employer] Address Unknown Phone Unavailable Care Team Providers Care Knobber Name Role Phone JODIE LEON CP Unavailable Allergies No Known Allergies Problems No Known Problems Medications No Known Medications Results No Known Results Summary Purpose [employer] Submission
== END 2017-01-01 11:45 | disposition home or self-care (01) ==
LOC: SDC 11:11 → 4TH 14:30 → SDC 01-01 11:45
PROVIDERS: ATTEND Obstetrics & Gynecology
DX: N75.1 Abscess of Bartholin's gland (principal); D28.0 Benign neoplasm of vulva
CPT/HCPCS: 84703; 87081; 88305

== ENCOUNTER 2017-01-07 21:38 | Emergency (ER) | payer MEDICAID ==
[~2017-01-07] VITALS: Ht 152.4 cm; Wt 52.2 kg
[2017-01-07] MEDS ORDERED: LACTATED RINGERS 1,000 ML IV SCH (21:45)
[2017-01-07] MEDS ORDERED: ONDANSETRON 4 MG/2 ML (SDV) Z0FRAN IVP ONE (21:45)
--- NOTE | 2017-01-07 21:48 | ED Abdominal Pain ---
General Chief Complaint: Abdominal/GI Problems Stated Complaint: VOMITING/DIARRHEA Source of Information: Patient Exam Limitations: No Limitations (SASHA CARLSON APRN) History of Present Illness Time Seen By Provider: 21:46 Initial Comments To ER come in by her mother with nausea vomiting and diarrhea. This began 3 days ago when she was given a prescription for OxyContin by Dr. Treviño as she is 6 days postoperative Bartholin's cyst excision Timing/Duration: 1-2 Days Severity/Quality: Cramping Location: Generalized Abdomen Radiation: No Radiation Activities at Onset: None (history of pancreatitis) Associated Symptoms: Nausea/Vomiting (SASHA CARLSON APRN) Allergies and Home Medications Allergies Coded Allergies: No Known Drug Allergies (Verified , 12/31/16) Home Medications Ciprofloxacin HCl 250 Mg Tablet, 250 MG PO BID, #14 Prescribed by: CASSANDRA SANDOVAL on 12/31/16 1227 Oxycodone HCl/Acetaminophen 1 Each Tablet, 1-2 TAB PO Q4H PRN for PAIN, #60 Prescribed by: CASSANDRA SANDOVAL on 12/31/16 1227 Review of Systems Constitutional: see HPI EENTM: No Symptoms Reported Respiratory: No Symptoms Reported Cardiovascular: No Symptoms Reported Gastrointestinal: See HPI, Abdominal Pain (Mother works here as), Diarrhea, Nausea Genitourinary: No Symptoms Reported Musculoskeletal: no symptoms reported Skin: no symptoms reported Psychiatric/Neurological: No Symptoms Reported Endocrine: No Symptoms Reported (SASHA CARLSON APRN) Past Tjiimgt-Udaatf-Vdcisv Hx Patient Social History Drug of Choice: HX OF + COCAINE UDS 11/2016 Type Used: Cigarettes Former Smoker/When Quit: Sep 26, 2011 Recent Foreign Travel: No Contact w/Someone Who Travel: No Recent Hopitalizations: No (SASHA CARLSON APRN) Immunizations Up To Date Tetanus Booster (TDap): More than 5yrs (SASHA CARLSON APRN) Seasonal Allergies Seasonal Allergies: Yes (SASHA CARLSON APRN) Surgeries HX Surgeries: No (I&D x3 of Bartholin cyct in GENITAL AREA, c/s x3) Surgeries: Section, Tubal Ligation (SASHA CARLSON APRN) Respiratory Hx Respiratory Disorders: No (SASHA CARLSON APRN) Cardiovascular Hx Cardiac Disorders: No (SASHA CARLSON APRN) Neurological Hx Neurological Disorders: No (SASHA CARLSON APRN) Reproductive System Hx Reproductive Disorders: No Sexually Transmitted Disease: No HIV/AIDS: No Female Reproductive Disorders: Denies [employer] History: Tubal Ligation (SASHA CARLSON APRN) Genitourinary Hx Genitourinary Disorders: No (SASHA CARLSON APRN) Gastrointestinal Hx Gastrointestinal Disorders: Yes Gastrointestinal Disorders: Pancreatitis (SASHA CARLSON APRN) Musculoskeletal Hx Musculoskeletal Disorders: No (SASHA CARLSON APRN) Endocrine Hx Endocrine Disorders: No (SASHA CARLSON APRN) HEENT HX ENT Disorders: No Loss of Vision: Denies Hearing Impairment: Denies (SASHA CARLSON APRN) Cancer Hx Cancer: No (SASHA CARLSON APRN) Psychosocial Hx Psychiatric Problems: Yes Behavioral Health Disorders: Anxiety, Bipolar, Depression (SASHA CARLSON APRN) Integumentary HX Skin/Integumentary Disorder: No (SASHA CARLSON APRN) Blood Transfusions Hx Blood Disorders: No (SASHA CARLSON APRN) Family Medical History Significant Family History: No Pertinent Family Hx Family Medial History: Congestive heart failure G8 SISTER Family history: Diabetes mellitus G8 SISTER History of - anemia 19 MOTHER G8 SISTER History of - disorder G8 SISTER (MS) No Family History of: Abdominal aortic aneurysm Alcoholism Cancer Dementia Family history: Alzheimer's disease Family history: Arthritis Family history: Asthma Family history: Breast disease Family history: Cardiovascular disease Family history: Gastrointestinal disease Family history: Hypertension Family history: Thyroid disorder Hereditary disease History of - respiratory disease Kidney disease Myocardial infarction Parkinson's disease Prostate cancer Psychotic disorder Seizure disorder Stroke (SASHA CARLSON APRN) Family Medial History: Congestive heart failure G8 SISTER Family history: Diabetes mellitus G8 SISTER History of - anemia 19 MOTHER G8 SISTER History of - disorder G8 SISTER (MS) No Family History of: Abdominal aortic aneurysm Alcoholism Cancer Dementia Family history: Alzheimer's disease Family history: Arthritis Family history: Asthma Family history: Breast disease Family history: Cardiovascular disease Family history: Gastrointestinal disease Family history: Hypertension Family history: Thyroid disorder Hereditary disease History of - respiratory disease Kidney disease Myocardial infarction Parkinson's disease Prostate cancer Psychotic disorder Seizure disorder Stroke (JAYSON NASH MD) Physical Exam Vital Signs VS - Last 72 Hours, by Label 01/07/17 21:46 Temp 97.4 Pulse 103 Resp 18 B/P (MAP) 112/86 Pulse Ox 98 O2 Delivery Room Air (JAYSON NASH MD) Vital Signs Capillary Refill : (SASHA CARLSON APRN) General Appearance: WD/WN, no apparent distress HEENT: PERRL/EOMI, normal ENT inspection Respiratory: no respiratory distress, no accessory muscle use Gastrointestinal: normal bowel sounds, non tender, soft Extremities: normal range of motion, non-tender Neurologic/Psychiatric: alert, normal mood/affect, oriented x 3 Skin: normal color, warm/dry (SASHA CARLSON APRN) Progress/Results/Core Measures Results/Orders Lab Results Laboratory Tests Test 01/07/17 21:50 01/07/17 22:40 Range/Units White Blood Count 11.6 H 4.3-11.0 10^3/uL Red Blood Count 4.57 4.35-5.85 10^6/uL Hemoglobin 12.5 11.5-16.0 G/DL Hematocrit 38 35-52 % Mean Corpuscular Volume 83 80-99 FL Mean Corpuscular Hemoglobin 27 25-34 PG Mean Corpuscular Hemoglobin Concent 33 32-36 G/DL Red Cell Distribution Width 14.0 10.0-14.5 % Platelet Count 289 130-400 10^3/uL Mean Platelet Volume 11.4 H 7.4-10.4 FL Neutrophils (%) (Auto) 69 42-75 % Lymphocytes (%) (Auto) 23 12-44 % Monocytes (%) (Auto) 7 0-12 % Eosinophils (%) (Auto) 1 0-10 % Basophils (%) (Auto) 0 0-10 % Neutrophils # (Auto) 8.0 H 1.8-7.8 X 10^3 Lymphocytes # (Auto) 2.7 1.0-4.0 X 10^3 Monocytes # (Auto) 0.8 0.0-1.0 X 10^3 Eosinophils # (Auto) 0.2 0.0-0.3 10^3/uL Basophils # (Auto) 0.0 0.0-0.1 10^3/uL Sodium Level 137 135-145 MMOL/L Potassium Level 3.6 3.6-5.0 MMOL/L Chloride Level 104 98-107 MMOL/L Carbon Dioxide Level 17 L 21-32 MMOL/L Anion Gap 16 H 5-14 MMOL/L Blood Urea Nitrogen 11 7-18 MG/DL Creatinine 0.84 0.60-1.30 MG/DL Estimat Glomerular Filtration Rate > 60 BUN/Creatinine Ratio 13 Glucose Level 116 H 70-105 MG/DL Calcium Level 9.5 8.5-10.1 MG/DL Total Bilirubin 0.6 0.1-1.0 MG/DL Aspartate Amino Transf (AST/SGOT) 18 5-34 U/L Alanine Aminotransferase (ALT/SGPT) 15 0-55 U/L Alkaline Phosphatase 77 40-136 U/L Total Protein 7.6 6.4-8.2 G/DL Albumin 4.5 3.2-4.5 G/DL Lipase 8 8-78 U/L Urine Color JADE H Urine Clarity VERY CLOUDY H Urine pH 8 5-9 Urine Specific Rowdy 1.010 L 1.016-1.022 Urine Protein 3+ H NEGATIVE Urine Glucose (UA) NEGATIVE NEGATIVE Urine Ketones 3+ H NEGATIVE Urine Nitrite POSITIVE H NEGATIVE Urine Bilirubin NEGATIVE NEGATIVE Urine Urobilinogen 4 H NORMAL MG/DL Urine Leukocyte Esterase 3+ H NEGATIVE Urine RBC (Auto) 5+ H NEGATIVE Urine RBC TNTC H /HPF Urine WBC 10-25 H /HPF Urine Crystals NONE /LPF Urine Bacteria FEW H /HPF Urine Casts NONE /LPF Urine Mucus NEGATIVE /LPF Urine Culture Indicated YES Urine Test NEGATIVE NEGATIVE (JAYSON NASH MD) My Orders Orders - JAYSON NASH MD Ceftriaxone Injection (Rocephin Injectio (01/07/17 23:15) (JAYSON NASH MD) Medications Given in ED Current Medications Medications Dose Ordered Sig/Deniz Route Start Time Stop Time Status Last Admin Dose Admin Diphenhydramine HCl 25 mg ONCE ONCE IVP 01/07/17 23:00 01/07/17 23:01 DC 01/07/17 22:58 25 MG Hyoscyamine Sulfate 0.25 mg ONCE ONCE PO 01/07/17 22:45 01/07/17 22:46 DC 01/07/17 23:01 0.25 MG Ondansetron HCl 8 mg ONCE ONCE IVP 01/07/17 21:45 01/07/17 21:46 DC 01/07/17 21:51 8 MG Prochlorperazine Edisylate 5 mg ONCE ONCE IV 01/07/17 23:00 01/07/17 23:01 DC 01/07/17 22:55 5 MG (JAYSON NASH MD) Vital Signs/I&O Vital Sign - Last 12Hours 01/07/17 21:46 Temp 97.4 Pulse 103 Resp 18 B/P (MAP) 112/86 Pulse Ox 98 O2 Delivery Room Air (JAYSON NASH MD) Progress Note : Progress Note Assumed care of the patient pending UA. Patient doing much better after fluids. UA positive. Due to recent vomiting, we will give Rocephin 1 g IV 1 dose here and continue outpatient treatment with Keflex. Discharged home with return precautions. Family verbalized understanding instructions and agreement with plan. (JAYSON NASH MD) Departure Communication Progress Notes 2231-Pt feels better at this time. Will give 2nd liter of saline and then discharge to home. (SASHA CARLSON APRN) Impression Impression: Primary Impression: Nausea vomiting and diarrhea Additional Impression: Urinary tract infection Qualified Codes: N30.01 - Acute cystitis with hematuria Disposition: HOME, SELF-CARE Condition: Stable Departure-Patient Inst. Decision time for Depature: 22:28 (SASHA CARLSON APRN) Referrals: [facility] (PCP/Family) Primary Care Physician Patient Instructions: Nausea and Vomiting, Adult, Urinary Tract Infection, Adult (DC) Add. Discharge Instructions: 1. Small frequent sips of fluids 2. Nausea medication as needed 3. Follow-up with your doctor next week All discharge instructions reviewed with patient and/or family. Voiced understanding. Scripts Cephalexin (Cephalexin) 500 Mg Tablet 500 MG PO TID, #18 TAB 0 Refills Prov: JAYSON NASH MD 01/07/17 SASHA CARLSON APRN Jan 07, 2017 21:48 JAYSON NASH MD Jan 07, 2017 23:13
[2017-01-07 21:59] LABS: BASOPHILS % (AUTO) 0 % (0-10); EOSINOPHILS # (AUTO) 0.2 10^3/uL (0.0-0.3); EOSINOPHILS % (AUTO) 1 % (0-10); LYMPHOCYTES # (AUTO) 2.7 X 10^3 (1.0-4.0); LYMPHOCYTES % (AUTO) 23 % (12-44); MEAN CORPUSCULAR HEMOGLOBIN 27 PG (25-34); MEAN CORPUSCULAR HGB CONC 33 G/DL (32-36); MEAN CORPUSCULAR VOLUME 83 FL (80-99); MEAN PLATELET VOLUME 11.4 FL (7.4-10.4); MONOCYTES # (AUTO) 0.8 X 10^3 (0.0-1.0); MONOCYTES % (AUTO) 7 % (0-12); NEUTROPHILS % (AUTO) 69 % (42-75); PLATELET COUNT 289 10^3/uL (130-400); RED BLOOD COUNT 4.57 10^6/uL (4.35-5.85); WHITE BLOOD COUNT 11.6 10^3/uL (4.3-11.0)
[2017-01-07 22:19] LABS: ALANINE AMINOTRANSFERASE 15 U/L (0-55); ALBUMIN 4.5 G/DL (3.2-4.5); ANION GAP 16 MMOL/L (5-14); ASPARTATE AMINO TRANSFERASE 18 U/L (5-34); BILIRUBIN,TOTAL 0.6 MG/DL (0.1-1.0); BLOOD UREA NITROGEN 11 MG/DL (7-18); BUN/CREATININE RATIO 13; CALCIUM 9.5 MG/DL (8.5-10.1); CARBON DIOXIDE 17 MMOL/L (21-32); CHLORIDE 104 MMOL/L (98-107); CREATININE SERUM 0.84 MG/DL (0.60-1.30); GFR ESTIMATED > 60; GLUCOSE 116 MG/DL (70-105); LIPASE 8 U/L (8-78); POTASSIUM 3.6 MMOL/L (3.6-5.0); SODIUM 137 MMOL/L (135-145); TOTAL PROTEIN 7.6 G/DL (6.4-8.2)
[2017-01-07] MEDS ORDERED: RX-ONDANSETRON 4 MG ODT (ZOFRAN) PPK #4 PO STA (22:29)
[2017-01-07] MEDS ORDERED: NS IV 1000 ML 1,000 ML IV SCH (22:30)
[2017-01-07] MEDS ORDERED: HYOSCYAMINE 0.125 MG (LEVSIN) TAB PO ONE (22:45)
[2017-01-07 22:46] LABS: BILIRUBIN,URINE NEGATIVE (NEGATIVE); KETONES,URINE 3+ (NEGATIVE); LEUKOCYTE ESTERASE ,URINE 3+ (NEGATIVE); NITRITE,URINE POSITIVE (NEGATIVE); PH,URINE 8 (5-9); PROTEIN,URINE 3+ (NEGATIVE); UROBILINOGEN,URINE 4 MG/DL (NORMAL)
[2017-01-07] MEDS ORDERED: diphenhydrAMINE 50 MG/ML INJ (BENADRYL) IVP ONE (23:00)
[2017-01-07] MEDS ORDERED: PROCHLORPERAZINE 10 MG/2ML INJ (COMPAZINE) IV ONE (23:00)
[2017-01-07] MEDS ORDERED: diphenhydrAMINE 50 MG/ML INJ (BENADRYL) IM ONE (23:00)
[2017-01-07] MEDS ORDERED: CEPH500T PO (23:13)
[2017-01-07] MEDS ORDERED: cefTRIAXone INJECTION 1,000 MG in NS (IVPB) 50 ML IV ONE (23:15)
[2017-01-07 23:57] VITALS: BP 105/57
== END 2017-01-07 23:57 | disposition home or self-care (01) ==
LOC: EDUNIT# 21:38 → ER 21:40
DX: R11.2 Nausea with vomiting, unspecified (principal); R19.7 Diarrhea, unspecified; N30.91 Cystitis, unspecified with hematuria
CPT/HCPCS: 36415; 80053; 81000; 83690; 84703; 85025; 87088; 96361; 96365; 96375

== ENCOUNTER 2017-02-08 03:23 | Emergency (ER) | payer MEDICAID ==
[~2017-02-08] VITALS: Ht 152.4 cm; Wt 52.2 kg
[~2017-02-08 03:23] MED LIST changes: +CEPH500T PO
[2017-02-08] MEDS ORDERED: NS IV 1000 ML 1,000 ML IV ONE (03:31)
[2017-02-08 03:39] LABS: BASOPHILS # (AUTO) 0.1 10^3/uL (0.0-0.1); BASOPHILS % (AUTO) 0 % (0-10); EOSINOPHILS # (AUTO) 0.1 10^3/uL (0.0-0.3); EOSINOPHILS % (AUTO) 1 % (0-10); LYMPHOCYTES % (AUTO) 18 % (12-44); MEAN CORPUSCULAR HEMOGLOBIN 28 PG (25-34); MEAN CORPUSCULAR HGB CONC 33 G/DL (32-36); MEAN CORPUSCULAR VOLUME 84 FL (80-99); MEAN PLATELET VOLUME 10.7 FL (7.4-10.4); MONOCYTES # (AUTO) 0.6 X 10^3 (0.0-1.0); MONOCYTES % (AUTO) 3 % (0-12); NEUTROPHILS # (AUTO) 17.1 X 10^3 (1.8-7.8); NEUTROPHILS % (AUTO) 78 % (42-75); PLATELET COUNT 486 10^3/uL (130-400); RED BLOOD COUNT 4.54 10^6/uL (4.35-5.85); RED CELL DISTRIBUTION WIDTH 14.3 % (10.0-14.5)
[2017-02-08] MEDS ORDERED: ONDANSETRON 4 MG/2 ML (SDV) Z0FRAN IVP ONE ×2 (03:45→05:45)
[2017-02-08] MEDS ORDERED: fentaNYL INJECTION 100 MCG/2 ML AMP IVP ONE ×2 (03:45→06:15)
[2017-02-08 03:56] LABS: ALANINE AMINOTRANSFERASE 30 U/L (0-55); ALBUMIN 4.9 G/DL (3.2-4.5); ANION GAP 24 MMOL/L (5-14); ASPARTATE AMINO TRANSFERASE 34 U/L (5-34); BILIRUBIN,TOTAL 0.4 MG/DL (0.1-1.0); BLOOD UREA NITROGEN 16 MG/DL (7-18); BUN/CREATININE RATIO 19; CALCIUM 9.8 MG/DL (8.5-10.1); CARBON DIOXIDE 10 MMOL/L (21-32); CHLORIDE 109 MMOL/L (98-107); CREATININE SERUM 0.85 MG/DL (0.60-1.30); GFR ESTIMATED > 60; GLUCOSE 74 MG/DL (70-105); LIPASE 5 U/L (8-78); POTASSIUM 3.1 MMOL/L (3.6-5.0); SODIUM 143 MMOL/L (135-145); TOTAL PROTEIN 8.6 G/DL (6.4-8.2)
[2017-02-08] MEDS ORDERED: PROMETHAZINE INJ 25 MG/ML (PHENERGAN) AMP IVP ONE (04:00)
[2017-02-08 04:09] LABS: BASOPHILS % (MANUAL) 1 %; LYMPHOCYTES % (MANUAL) 14 %; NEUTROPHILS % (MANUAL) 83 %
[2017-02-08] MEDS ORDERED: LACTATED RINGERS 1,000 ML IV ONE (04:14)
--- NOTE | 2017-02-08 04:35 | ED Abdominal Pain ---
General Chief Complaint: Abdominal/GI Problems Stated Complaint: VOMITING Nursing Triage Note: Awoke at 2345 with N/V, pt with chief c/o sudden onset of N/V from being sound asleep. Denies ETOH for 2 days Sepsis Screen: No Definite Risk Source of Information: Patient, Old Records Exam Limitations: No Limitations History of Present Illness Time Seen By Provider: 03:24 Initial Comments This 31-year-old woman presents to the emergency room with rather abrupt onset of nausea, vomiting, abdominal pain more concentrated on the right side. It woke her from sleep at about 23:45. She reports vomiting numerous times and having significant associated abdominal pain with the vomiting. She denies diarrhea. Review of her chart shows she has been seen numerous times for similar presentation. All of her prior CT scans have been negative. She was most recently seen in the ER about a month ago and diagnosed with urinary tract infection at that time. She reports completing her antibiotics. She has also been treated for a chronic Bartholin's gland cyst infection. On her prior visits she has had abnormal labs including elevated lactic acid, LDH, and WBC but CTs have been negative despite these findings. It was noted patient has had multiple positive drug screens for cocaine and marijuana. She admits to smoking marijuana almost daily. She states cocaine use was more remote. Allergies and Home Medications Allergies Coded Allergies: No Known Drug Allergies (Verified , 12/31/16) Home Medications Potassium Chloride 10 Meq Capsule.er, 20 MEQ PO BID, #8 Prescribed by: JANNA JOHNSON on 02/08/17 0700 Review of Systems Constitutional: no symptoms reported EENTM: No Symptoms Reported Respiratory: No Symptoms Reported Cardiovascular: No Symptoms Reported Gastrointestinal: See HPI Genitourinary: See HPI Musculoskeletal: no symptoms reported Skin: no symptoms reported Psychiatric/Neurological: See HPI Endocrine: No Symptoms Reported Hematologic/Lymphatic: No Symptoms Reported Past Fyadhoi-Dmlwkz-Ivajks Hx Patient Social History Alcohol Use: Occasionally Uses Recreational Drug Use: Yes (marijuana and cocaine) Drug of Choice: HX OF + COCAINE UDS 11/2016 Smoking Status: Current Everyday Smoker Type Used: Cigarettes Former Smoker/When Quit: Sep 26, 2011 Recent Foreign Travel: No Contact w/Someone Who Travel: No Recent Infectious Disease Expo: No Recent Hopitalizations: No Immunizations Up To Date Tetanus Booster (TDap): More than 5yrs Seasonal Allergies Seasonal Allergies: Yes Surgeries HX Surgeries: Yes (I&D x3 of Bartholin cyct in GENITAL AREA, c/s x3, bartholin gland removal) Surgeries: Section, Tubal Ligation Respiratory Hx Respiratory Disorders: No Cardiovascular Hx Cardiac Disorders: No Neurological Hx Neurological Disorders: No Reproductive System : No Hx Reproductive Disorders: No Sexually Transmitted Disease: No HIV/AIDS: No Female Reproductive Disorders: Denies 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 Genitourinary Hx Genitourinary Disorders: No Gastrointestinal Hx Gastrointestinal Disorders: Yes Gastrointestinal Disorders: Pancreatitis Musculoskeletal Hx Musculoskeletal Disorders: No Endocrine Hx Endocrine Disorders: No HEENT HX ENT Disorders: No Loss of Vision: Denies Hearing Impairment: Denies Cancer Hx Cancer: No Psychosocial Hx Psychiatric Problems: Yes (polysubstance abuse) Behavioral Health Disorders: Anxiety, Bipolar, Depression Integumentary HX Skin/Integumentary Disorder: No Blood Transfusions Hx Blood Disorders: No Family Medical History Significant Family History: No Pertinent Family Hx Family Medial History: Congestive heart failure G8 SISTER Family history: Diabetes mellitus G8 SISTER History of - anemia 19 MOTHER G8 SISTER History of - disorder G8 SISTER (MS) No Family History of: Abdominal aortic aneurysm Alcoholism Cancer Dementia Family history: Alzheimer's disease Family history: Arthritis Family history: Asthma Family history: Breast disease Family history: Cardiovascular disease Family history: Gastrointestinal disease Family history: Hypertension Family history: Thyroid disorder Hereditary disease History of - respiratory disease Kidney disease Myocardial infarction Parkinson's disease Prostate cancer Psychotic disorder Seizure disorder Stroke Physical Exam Vital Signs VS - Last 72 Hours, by Label 02/08/17 02/08/17 03:27 07:33 Temp 97.2 Pulse 71 71 Resp 20 16 B/P (MAP) 111/92 Pulse Ox 100 98 O2 Delivery Room Air Capillary Refill : Less Than 3 Seconds General Appearance: WD/WN, moderate distress, thin HEENT: PERRL/EOMI, normal ENT inspection Neck: normal inspection Respiratory: lungs clear, normal breath sounds, no respiratory distress, no accessory muscle use Cardiovascular: regular rate, rhythm, no edema, no murmur Gastrointestinal: normal bowel sounds, soft, tenderness (diffuse, right greater than left) Extremities: normal inspection 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, no motor/sensory deficits, alert, normal mood/affect, oriented x 3 Progress/Results/Core Measures Results/Orders Lab Results Laboratory Tests Test 02/08/17 03:30 02/08/17 05:20 Range/Units White Blood Count 22.0 H 4.3-11.0 10^3/uL Red Blood Count 4.54 4.35-5.85 10^6/uL Hemoglobin 12.5 11.5-16.0 G/DL Hematocrit 38 35-52 % Mean Corpuscular Volume 84 80-99 FL Mean Corpuscular Hemoglobin 28 25-34 PG Mean Corpuscular Hemoglobin Concent 33 32-36 G/DL Red Cell Distribution Width 14.3 10.0-14.5 % Platelet Count 486 H 130-400 10^3/uL Mean Platelet Volume 10.7 H 7.4-10.4 FL Neutrophils (%) (Auto) 78 H 42-75 % Lymphocytes (%) (Auto) 18 12-44 % Monocytes (%) (Auto) 3 0-12 % Eosinophils (%) (Auto) 1 0-10 % Basophils (%) (Auto) 0 0-10 % Neutrophils # (Auto) 17.1 H 1.8-7.8 X 10^3 Lymphocytes # (Auto) 4.0 1.0-4.0 X 10^3 Monocytes # (Auto) 0.6 0.0-1.0 X 10^3 Eosinophils # (Auto) 0.1 0.0-0.3 10^3/uL Basophils # (Auto) 0.1 0.0-0.1 10^3/uL Neutrophils % (Manual) 83 % Lymphocytes % (Manual) 14 % Monocytes % (Manual) 2 % Basophils % (Manual) 1 % Band Neutrophils % Blood Morphology Comment NORMAL Sodium Level 143 135-145 MMOL/L Potassium Level 3.1 L 3.6-5.0 MMOL/L Chloride Level 109 H 98-107 MMOL/L Carbon Dioxide Level 10 L 21-32 MMOL/L Anion Gap 24 H 5-14 MMOL/L Blood Urea Nitrogen 16 7-18 MG/DL Creatinine 0.85 0.60-1.30 MG/DL Estimat Glomerular Filtration Rate > 60 BUN/Creatinine Ratio 19 Glucose Level 74 70-105 MG/DL Calcium Level 9.8 8.5-10.1 MG/DL Total Bilirubin 0.4 0.1-1.0 MG/DL Aspartate Amino Transf (AST/SGOT) 34 5-34 U/L Alanine Aminotransferase (ALT/SGPT) 30 0-55 U/L Alkaline Phosphatase 102 40-136 U/L C-Reactive Protein High Sensitivity 0.07 0.00-0.50 MG/DL Total Protein 8.6 H 6.4-8.2 G/DL Albumin 4.9 H 3.2-4.5 G/DL Lipase 5 L 8-78 U/L Serum Test, Qualitative NEGATIVE NEGATIVE Urine Color YELLOW Urine Clarity SLIGHTLY CLOUDY Urine pH 5 5-9 Urine Specific [place] 1.020 1.016-1.022 Urine Protein 2+ H NEGATIVE Urine Glucose (UA) NEGATIVE NEGATIVE Urine Ketones 4+ H NEGATIVE Urine Nitrite NEGATIVE NEGATIVE Urine Bilirubin NEGATIVE NEGATIVE Urine Urobilinogen NORMAL NORMAL MG/DL Urine Leukocyte Esterase NEGATIVE NEGATIVE Urine RBC (Auto) 2+ H NEGATIVE Urine RBC 0-2 /HPF Urine WBC NONE /HPF Urine Squamous Epithelial Cells 2-5 /HPF Urine Crystals NONE /LPF Urine Bacteria NEGATIVE /HPF Urine Casts NONE /LPF Urine Mucus SMALL H /LPF Urine Culture Indicated NO Urine Opiates Screen NEGATIVE NEGATIVE Urine Oxycodone Screen NEGATIVE NEGATIVE Urine Methadone Screen NEGATIVE NEGATIVE Urine Propoxyphene Screen NEGATIVE NEGATIVE Urine Barbiturates Screen NEGATIVE NEGATIVE Ur Tricyclic Antidepressants Screen NEGATIVE NEGATIVE Urine Phencyclidine Screen NEGATIVE NEGATIVE Urine Amphetamines Screen POSITIVE H NEGATIVE Urine Methamphetamines Screen POSITIVE H NEGATIVE Urine Benzodiazepines Screen NEGATIVE NEGATIVE Urine Cocaine Screen POSITIVE H NEGATIVE Urine Cannabinoids Screen POSITIVE H NEGATIVE My Orders Orders - JANNA ORTEGA MD Ondansetron Injection (Zofran Injectio (02/08/17 03:45) Fentanyl Injection (Sublimaze Injection (02/08/17 03:45) Cbc With Automated Diff (02/08/17 03:31) Comprehensive Metabolic Panel (02/08/17 03:31) Lipase (02/08/17 03:31) Ua Culture If Indicated (02/08/17 03:31) Saline Lock/Iv-Start (02/08/17 03:31) Ns Iv 1000 Ml (Sodium Chloride 0.9%) (02/08/17 03:31) Manual Differential (02/08/17 03:30) Hs C Reactive Protein (02/08/17 03:47) Promethazine Injection (Phenergan Injec (02/08/17 04:00) Lactated Ringers (Lr 1000 Ml Iv Solution (02/08/17 04:14) Hcg,Qualitative Serum (02/08/17 04:26) Ondansetron Injection (Zofran Injectio (02/08/17 05:45) Famotidine Injection (Pepcid Injection) (02/08/17 05:45) Scopolamine Patch (Transderm-Scop Patch) (02/08/17 05:45) Drug Screen Stat (Urine) (02/08/17 05:45) Lorazepam Injection (Ativan Injection) (02/08/17 06:15) Fentanyl Injection (Sublimaze Injection (02/08/17 06:15) Rx-Promethazine Hcl (Rx-Phenergan Supp) (02/08/17 06:54) Rx-Ondansetron Po (Rx-Zofran Po) (02/08/17 06:54) Medications Given in ED Vital Signs/I&O Vital Sign - Last 12Hours 02/08/17 02/08/17 03:27 07:33 Temp 97.2 Pulse 71 71 Resp 20 16 B/P (MAP) 111/92 Pulse Ox 100 98 O2 Delivery Room Air Blood Pressure Mean: 98 Progress Note #1: Time: 04:38 Progress Note Patient has a notable leukocytosis which has been observed on other visits as well. She is receiving her second liter of IV fluids. Zofran and Phenergan have been used to control nausea. She received fentanyl for initial treatment of pain. She seems to be doing much better at this time. UA is pending. Progress Note #2: Time: 06:11 Progress Note Patient is having rebound vomiting and pain. She was given Zofran 4 mg and Pepcid 20 mg which did not resolve the rebound symptoms. Scopolamine patch was applied. She'll be given Ativan and fentanyl. Ativan has been used as part of her successful treatment in the past. Progress Note #3: Time: 07:20 Progress Note Patient reports minimal nausea after above treatments. She is rather sleepy at this time. She is tolerating ice chips. Case was reviewed with Dr. Casas and disposition discussed. Dr. Casas does not want her admitted and recommends close follow-up in the outpatient setting. I discussed the case with Dr. Sotelo who will help facilitate outpatient follow-up. Patient will be dismissed with Zofran and promethazine take-home packets. A prescription for oral potassium replacement will also be provided. I suspect patient's persistent substance abuse is related to these recurrent episodes of abdominal pain, nausea, and vomiting. Patient likely has a cannabis hyperemesis syndrome. Departure Impression Impression: Primary Impression: Generalized abdominal pain Additional Impressions: Nausea and vomiting Qualified Codes: R11.2 - Nausea with vomiting, unspecified Hypokalemia Polysubstance abuse Disposition: 01 HOME, SELF-CARE Condition: Improved Departure-Patient Inst. Decision time for Depature: 06:56 Referrals: [facility] (PCP/Family) Primary Care Physician Patient Instructions: Acute Abdomen (Belly Pain), Adult (DC) Add. Discharge Instructions: Leave your scopolamine patch on for 24 hours. Dissolve Zofran under the tongue every 4 hours as needed for nausea and vomiting Use the promethazine (Phenergan) suppositories every 4-6 hours as needed for nausea and vomiting not controlled by Zofran. Discontinue recreational drug use as this is likely a major contributing factor to your symptoms. Use the potassium supplement as prescribed. You may use Tylenol up to 650 mg every 4 hours as needed for pain. Sip on plenty of clear liquids and gradually advance your diet with small quantities of bland food as tolerated. Return to the ER if symptoms worsen. Follow-up with [facility] as soon as possible. Seek referral to their substance abuse program. [facility] is aware you will be following up and should be scheduling an appointment for you this morning. Please call [phone] to obtain the appointment time. All discharge instructions reviewed with patient and/or family. Voiced understanding. Scripts Potassium Chloride (Potassium Chloride) 10 Meq Capsule.er 20 MEQ PO BID, #8 CAP Prov: JANNA ORTEGA MD 02/08/17 JANNA ORTEGA MD February 08, 2017 04:35
[2017-02-08 05:27] LABS: BILIRUBIN,URINE NEGATIVE (NEGATIVE); KETONES,URINE 4+ (NEGATIVE); LEUKOCYTE ESTERASE ,URINE NEGATIVE (NEGATIVE); NITRITE,URINE NEGATIVE (NEGATIVE); PH,URINE 5 (5-9); PROTEIN,URINE 2+ (NEGATIVE); UROBILINOGEN,URINE NORMAL (NORMAL)
[2017-02-08] MEDS ORDERED: FAMOTIDINE 20MG/2ML IV (PEPCID) IVP ONE (05:45)
[2017-02-08] MEDS ORDERED: SCOPOLAMINE 1.5 MG (TRANSDERM-SCOP) PATCH TD ONE (05:45)
[2017-02-08] MEDS ORDERED: LORazepam INJ 2 MG/ML (ATIVAN) VIAL IVP ONE (06:15)
[2017-02-08] MEDS ORDERED: RX-ONDANSETRON 4 MG ODT (ZOFRAN) PPK #4 SL STA (06:54)
[2017-02-08] MEDS ORDERED: RX-PHENERGAN 25 MG SUPP PPK#3 PR STA (06:54)
[2017-02-08] MEDS ORDERED: POTA10CA43 PO (07:00)
[2017-02-08 07:33] VITALS: BP 95/66
== END 2017-02-08 07:33 | disposition home or self-care (01) ==
LOC: EDUNIT# 03:23 → ER 03:24
DX: R10.84 Generalized abdominal pain (principal); R11.2 Nausea with vomiting, unspecified; E87.6 Hypokalemia; F17.210 Nicotine dependence, cigarettes, uncomplicated; F12.90 Cannabis use, unspecified, uncomplicated; F15.90 Other stimulant use, unspecified, uncomplicated; F14.90 Cocaine use, unspecified, uncomplicated
CPT/HCPCS: 36415; 80053; 80306; 81000; 83690; 84703; 85007; 85027; 86141; 96365; 96375; 96376

== ENCOUNTER 2017-03-11 06:55 | Emergency (ER) | payer MEDICAID ==
[~2017-03-11] VITALS: Ht 165.1 cm; Wt 50.8 kg
[~2017-03-11 06:55] MED LIST changes: +POTA10CA43 PO
[2017-03-11] MEDS ORDERED: NS IV 1000 ML 1,000 ML ONE (07:13)
[2017-03-11] MEDS ORDERED: fentaNYL INJECTION 100 MCG/2 ML AMP ONE (07:13)
[2017-03-11] MEDS ORDERED: ONDANSETRON 4 MG/2 ML (SDV) Z0FRAN ONE (07:13)
[2017-03-11] MEDS ORDERED: fentaNYL INJECTION 100 MCG/2 ML AMP IVP ONE ×3 (07:15→09:00)
[2017-03-11] MEDS ORDERED: ONDANSETRON 4 MG/2 ML (SDV) Z0FRAN IVP ONE ×2 (07:15→07:45)
[2017-03-11] MEDS ORDERED: NS IV 1000 ML 1,000 ML IV SCH (07:15)
[2017-03-11 07:31] LABS: BASOPHILS % (AUTO) 0 % (0-10); EOSINOPHILS % (AUTO) 0 % (0-10); LYMPHOCYTES # (AUTO) 2.4 X 10^3 (1.0-4.0); LYMPHOCYTES % (AUTO) 13 % (12-44); MEAN CORPUSCULAR HEMOGLOBIN 27 PG (25-34); MEAN CORPUSCULAR HGB CONC 32 G/DL (32-36); MEAN CORPUSCULAR VOLUME 85 FL (80-99); MEAN PLATELET VOLUME 11.4 FL (7.4-10.4); MONOCYTES # (AUTO) 0.4 X 10^3 (0.0-1.0); MONOCYTES % (AUTO) 2 % (0-12); NEUTROPHILS # (AUTO) 15.2 X 10^3 (1.8-7.8); NEUTROPHILS % (AUTO) 84 % (42-75); PLATELET COUNT 327 10^3/uL (130-400); RED BLOOD COUNT 4.19 10^6/uL (4.35-5.85); WHITE BLOOD COUNT 18.1 10^3/uL (4.3-11.0)
--- NOTE | 2017-03-11 07:41 | ED Abdominal Pain ---
General Chief Complaint: Abdominal/GI Problems Stated Complaint: VOMITING Source of Information: Patient, Other (the patient's friend has brought the patient to the emergency department.) Exam Limitations: No Limitations History of Present Illness Time Seen By Provider: 07:38 Initial Comments 31-year-old female presents complaining of sharp severe lower abdominal pain that awoke her from sleep at approximately 3 a.m. The patient had a similar presentation to the emergency department approximately one month ago. Patient has had associated vomiting and diarrhea. She denies blood in her stool or emesis. The patient states that her son has had diarrhea in the last few days. The patient's past medical history includes 3 C-sections. Patient states that she drinks significantly, most recently last night. Patient denies associated fever, chills, headache, stiff neck, productive cough or shortness of breath, associated radiation of her lower midline abdominal pain , dysuria, frequency, or flank pain. Patient relates that her drinking has caused abdominal pain in the past. Allergies and Home Medications Allergies Coded Allergies: No Known Drug Allergies (Verified , 12/31/16) Home Medications Potassium Chloride 10 Meq Capsule.er, 20 MEQ PO BID, #8 Prescribed by: JANNA JOHNSON on 02/08/17 0700 Review of Systems Constitutional: No chills, No fever, No malaise Respiratory: Denies Cough, Denies Shortness of Air Cardiovascular: Denies Chest Pain Gastrointestinal: See HPI, Denies Abdomen Distended, Abdominal Pain, Diarrhea, Nausea, Denies Rectal Bleeding, Vomiting Genitourinary: Denies Burning, Denies Discharge, Denies Frequency Musculoskeletal: No back pain Skin: No change in color, No rash Psychiatric/Neurological: No Symptoms Reported Endocrine: No Symptoms Reported Hematologic/Lymphatic: No Symptoms Reported Past Hspqsaq-Hnzdmw-Pakzra Hx Patient Social History Alcohol Use: Occasionally Uses Recreational Drug Use: No (drank tonight) Drug of Choice: HX OF + COCAINE UDS 11/2016 Smoking Status: Current Everyday Smoker Type Used: Cigarettes Former Smoker/When Quit: Sep 26, 2011 Recent Foreign Travel: No Contact w/Someone Who Travel: No Recent Hopitalizations: No Immunizations Up To Date Tetanus Booster (TDap): More than 5yrs Seasonal Allergies Seasonal Allergies: Yes Surgeries HX Surgeries: Yes (I&D x3 of Bartholin cyct in GENITAL AREA, c/s x3, bartholin gland removal) Surgeries: Section, Tubal Ligation Respiratory Hx Respiratory Disorders: No Cardiovascular Hx Cardiac Disorders: No Neurological Hx Neurological Disorders: No Reproductive System Hx Reproductive Disorders: No Sexually Transmitted Disease: No HIV/AIDS: No Female 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 Genitourinary Hx Genitourinary Disorders: No Gastrointestinal Hx Gastrointestinal Disorders: Yes Gastrointestinal Disorders: Pancreatitis Musculoskeletal Hx Musculoskeletal Disorders: No Endocrine Hx Endocrine Disorders: No HEENT HX ENT Disorders: No Loss of Vision: Denies Hearing Impairment: Denies Cancer Hx Cancer: No Psychosocial Hx Psychiatric Problems: Yes (polysubstance abuse) Behavioral Health Disorders: Anxiety, Bipolar, Depression Integumentary HX Skin/Integumentary Disorder: No Blood Transfusions Hx Blood Disorders: No Family Medical History Significant Family History: No Pertinent Family Hx Family Medial History: Congestive heart failure G8 SISTER Family history: Diabetes mellitus G8 SISTER History of - anemia 19 MOTHER G8 SISTER History of - disorder G8 SISTER (MS) No Family History of: Abdominal aortic aneurysm Alcoholism Cancer Dementia Family history: Alzheimer's disease Family history: Arthritis Family history: Asthma Family history: Breast disease Family history: Cardiovascular disease Family history: Gastrointestinal disease Family history: Hypertension Family history: Thyroid disorder Hereditary disease History of - respiratory disease Kidney disease Myocardial infarction Parkinson's disease Prostate cancer Psychotic disorder Seizure disorder Stroke Physical Exam Vital Signs VS - Last 72 Hours, by Label 03/11/17 07:01 Temp 97.2 Pulse 54 Resp 18 B/P (MAP) 112/69 Pulse Ox 100 O2 Delivery Room Air Capillary Refill : General Appearance: mild distress HEENT: normal ENT inspection Neck: full range of motion Respiratory: lungs clear, normal breath sounds, no respiratory distress Cardiovascular: regular rate, rhythm, no edema, no gallop Gastrointestinal: non tender, soft, no organomegaly, no pulsatile mass, No distended, No guarding, No mass Extremities: normal range of motion, non-tender, normal inspection, no pedal edema Back: no CVA tenderness Neurologic/Psychiatric: no motor/sensory deficits, alert, normal mood/affect, oriented x 3 Skin: normal color, warm/dry Progress/Results/Core Measures Results/Orders Lab Results Laboratory Tests Test 03/11/17 07:20 03/11/17 07:39 Range/Units White Blood Count 18.1 H 4.3-11.0 10^3/uL Red Blood Count 4.19 L 4.35-5.85 10^6/uL Hemoglobin 11.4 L 11.5-16.0 G/DL Hematocrit 36 35-52 % Mean Corpuscular Volume 85 80-99 FL Mean Corpuscular Hemoglobin 27 25-34 PG Mean Corpuscular Hemoglobin Concent 32 32-36 G/DL Red Cell Distribution Width 15.0 H 10.0-14.5 % Platelet Count 327 130-400 10^3/uL Mean Platelet Volume 11.4 H 7.4-10.4 FL Neutrophils (%) (Auto) 84 H 42-75 % Lymphocytes (%) (Auto) 13 12-44 % Monocytes (%) (Auto) 2 0-12 % Eosinophils (%) (Auto) 0 0-10 % Basophils (%) (Auto) 0 0-10 % Neutrophils # (Auto) 15.2 H 1.8-7.8 X 10^3 Lymphocytes # (Auto) 2.4 1.0-4.0 X 10^3 Monocytes # (Auto) 0.4 0.0-1.0 X 10^3 Eosinophils # (Auto) 0.0 0.0-0.3 10^3/uL Basophils # (Auto) 0.0 0.0-0.1 10^3/uL Neutrophils % (Manual) 86 % Lymphocytes % (Manual) 11 % Monocytes % (Manual) 3 % Eosinophils % (Manual) 0 % Basophils % (Manual) 0 % Band Neutrophils 0 % Anisocytosis SLIGHT Sodium Level 142 135-145 MMOL/L Potassium Level 3.5 L 3.6-5.0 MMOL/L Chloride Level 109 H 98-107 MMOL/L Carbon Dioxide Level 13 L 21-32 MMOL/L Anion Gap 20 H 5-14 MMOL/L Blood Urea Nitrogen 17 7-18 MG/DL Creatinine 0.80 0.60-1.30 MG/DL Estimat Glomerular Filtration Rate > 60 BUN/Creatinine Ratio 21 H 0-20 Glucose Level 100 70-105 MG/DL Calcium Level 9.6 8.5-10.1 MG/DL Total Bilirubin 0.4 0.1-1.0 MG/DL Aspartate Amino Transf (AST/SGOT) 34 5-34 U/L Alanine Aminotransferase (ALT/SGPT) 26 0-55 U/L Alkaline Phosphatase 81 40-136 U/L Total Protein 8.3 H 6.4-8.2 GM/DL Albumin 4.8 H 3.2-4.5 GM/DL Lipase 8 8-78 U/L Urine Color YELLOW Urine Clarity CLEAR Urine pH 6 5-9 Urine Specific [place] 1.020 1.016-1.022 Urine Protein 2+ H NEGATIVE Urine Glucose (UA) NEGATIVE NEGATIVE Urine Ketones 4+ H NEGATIVE Urine Nitrite NEGATIVE NEGATIVE Urine Bilirubin NEGATIVE NEGATIVE Urine Urobilinogen NORMAL NORMAL MG/DL Urine Leukocyte Esterase NEGATIVE NEGATIVE Urine RBC (Auto) 4+ H NEGATIVE Urine RBC 2-5 H /HPF Urine WBC NONE /HPF Urine Squamous Epithelial Cells RARE /HPF Urine Crystals NONE /LPF Urine Bacteria NEGATIVE /HPF Urine Casts NONE /LPF Urine Mucus NEGATIVE /LPF Urine Culture Indicated NO Urine Test NEGATIVE NEGATIVE My Orders Orders - TATO WHITAKER MD Cbc With Automated Diff (03/11/17 07:12) Comprehensive Metabolic Panel (03/11/17 07:12) Lipase (03/11/17 07:12) Ua Culture If Indicated (03/11/17 07:12) Ns Iv 1000 Ml (Sodium Chloride 0.9%) (03/11/17 07:15) Ondansetron Injection (Zofran Injectio (03/11/17 07:15) Fentanyl Injection (Sublimaze Injection (03/11/17 07:15) Hcg,Qualitative Urine (03/11/17 07:12) Fentanyl Injection (Sublimaze Injection (03/11/17 07:13) Ondansetron Injection (Zofran Injectio (03/11/17 07:13) Ns Iv 1000 Ml (Sodium Chloride 0.9%) (03/11/17 07:13) Manual Differential (03/11/17 07:20) Ondansetron Injection (Zofran Injectio (03/11/17 07:45) Ct Abdomen/Pelvis W (03/11/17 07:57) Iohexol Injection (Omnipaque 350 Mg/Ml 1 (03/11/17 08:30) Ns (Ivpb) (Sodium Chloride 0.9% Ivpb Bag (03/11/17 08:30) Fentanyl Injection (Sublimaze Injection (03/11/17 09:00) Fentanyl Injection (Sublimaze Injection (03/11/17 09:00) Medications Given in ED Current Medications Medications Dose Ordered Sig/Deniz Route Start Time Stop Time Status Last Admin Dose Admin Fentanyl Citrate 50 mcg ONCE ONCE IVP 03/11/17 09:00 03/11/17 09:01 DC 03/11/17 08:51 50 MCG Fentanyl Citrate 100 mcg STK-MED ONCE .ROUTE 03/11/17 07:13 03/11/17 07:18 DC 03/11/17 07:21 50 MCG Iohexol 100 ml ONCE ONCE IV 03/11/17 08:30 03/11/17 08:36 DC 03/11/17 08:29 100 ML Ondansetron HCl 4 mg ONCE ONCE IVP 03/11/17 07:45 03/11/17 07:46 DC 03/11/17 07:45 4 MG Ondansetron HCl 4 mg STK-MED ONCE .ROUTE 03/11/17 07:13 03/11/17 07:18 DC 03/11/17 07:20 4 MG Sodium Chloride 80 ml ONCE ONCE IV 03/11/17 08:30 03/11/17 08:36 DC 03/11/17 08:29 80 ML Sodium Chloride 1,000 ml @ ud STK-MED ONCE .ROUTE 03/11/17 07:13 03/11/17 07:18 DC 03/11/17 07:21 1,000 MLS/HR Vital Signs/I&O Vital Sign - Last 12Hours 03/11/17 07:01 Temp 97.2 Pulse 54 Resp 18 B/P (MAP) 112/69 Pulse Ox 100 O2 Delivery Room Air Progress Note : Time: 08:01 Progress Note Patient feels better after 50 g fentanyl and 8 mg of Zofran IV. Early lab returned demonstrates a white count of 18,000. The patient's amylase was normal. A CT of the abdomen and pelvis with contrast is ordered. I reviewed the patient's old records, somewhat incompletely. I don't see any helpful information at this point. [address] of the abdomen demonstrated some thickening of the colonic wall but no evidence of distinct acute pathology. Remainder laboratory evaluation was unremarkable. With the administration of the patient's anti-medics and pain medications the patient's symptoms resolved. The patient was resting quietly in the emergency department at the time of discharge. I believe the patient's recurrent nonspecific abdominal pain, etiology unresolved, is worthy of further evaluation. We'll refer the patient to her physician for further evaluation. I recommended a conservative course of rest and clear fluids today. Patient was invited to return to the emergency department if she had a further problems or questions. Departure Impression Impression: Primary Impression: Acute abdominal pain Disposition: 01 HOME, SELF-CARE Condition: Improved Departure-Patient Inst. Decision time for Depature: 09:37 Referrals: [facility] (PCP/Family) Primary Care Physician Patient Instructions: Acute Abdomen (Belly Pain), Adult (DC) Add. Discharge Instructions: Follow-up closely with [facility]. Rest at home today. Clear liquids today. Return if any acute problems or questions. All discharge instructions reviewed with patient and/or family. Voiced understanding. TATO WHITAKER MD Mar 11, 2017 07:41
[2017-03-11 07:46] LABS: BILIRUBIN,URINE NEGATIVE (NEGATIVE); KETONES,URINE 4+ (NEGATIVE); LEUKOCYTE ESTERASE ,URINE NEGATIVE (NEGATIVE); NITRITE,URINE NEGATIVE (NEGATIVE); PH,URINE 6 (5-9); PROTEIN,URINE 2+ (NEGATIVE); UROBILINOGEN,URINE NORMAL (NORMAL)
[2017-03-11 07:50] LABS: ALANINE AMINOTRANSFERASE 26 U/L (0-55); ALBUMIN 4.8 GM/DL (3.2-4.5); ANION GAP 20 MMOL/L (5-14); ASPARTATE AMINO TRANSFERASE 34 U/L (5-34); BILIRUBIN,TOTAL 0.4 MG/DL (0.1-1.0); BLOOD UREA NITROGEN 17 MG/DL (7-18); BUN/CREATININE RATIO 21 (0-20); CALCIUM 9.6 MG/DL (8.5-10.1); CARBON DIOXIDE 13 MMOL/L (21-32); CHLORIDE 109 MMOL/L (98-107); GFR ESTIMATED > 60; GLUCOSE 100 MG/DL (70-105); HEMOLYSIS 8 (0-29); ICTERUS 0.6 (0-1.9); LIPASE 8 U/L (8-78); LIPEMIA 6 (0-49); POTASSIUM 3.5 MMOL/L (3.6-5.0); SODIUM 142 MMOL/L (135-145); TOTAL PROTEIN 8.3 GM/DL (6.4-8.2)
[2017-03-11 08:00] LABS: SQUAMOUS EPITHELIAL CELL,UR RARE /HPF
[2017-03-11 08:09] LABS: ANISOCYTOSIS SLIGHT; BAND NEUTROPHILS 0 %; BASOPHILS % (MANUAL) 0 %; EOSINOPHILS % (MANUAL) 0 %; LYMPHOCYTES % (MANUAL) 11 %; NEUTROPHILS % (MANUAL) 86 %
[2017-03-11] MEDS ORDERED: NS 100 ML (IVPB) BAG IV ONE (08:30)
[2017-03-11] MEDS ORDERED: IOHEXOL 350 MG/ML 100 ML (OMNIPAQUE 350) VIAL IV ONE (08:30)
--- NOTE | 2017-03-11 09:17 | Diagnostic Imaging Report ---
PROCEDURE: CT abdomen and pelvis with contrast. TECHNIQUE: Multiple contiguous axial images were obtained through the abdomen and pelvis after administration of intravenous contrast. INDICATION: Severe abdominal pain. COMPARISON: 03/04/2016. FINDINGS: Included views of the lung bases are clear. CT ABDOMEN: Colon is decompressed. There does, however, appear to be abnormal diffuse colonic wall thickening. Small bowel loops are also nondistended. Normal appendix cannot be adequately identified, but there is no focal pericecal inflammation. There is no pneumatosis, pneumoperitoneum, nor portal venous gas. The kidneys demonstrate benign-appearing cysts within the superior pole on the left. Otherwise, the kidneys, adrenal glands, spleen, pancreas, and liver have a normal appearance. There is no free fluid or loculated air-fluid collection. No abnormal lymph nodes are seen. Bony structures show no acute abnormalities. CT PELVIS: Urinary bladder is grossly unremarkable. There is no loculated fluid collection, free fluid, nor free air within the pelvis. No abnormal lymph nodes are seen. Bony structures show no acute abnormalities. IMPRESSION: 1. There is diffusely abnormal thickened appearance of the colonic wall. This is greater than expected to be artifact and related to decompression of the colon. Therefore, this does raise concern for nonspecific infectious or inflammatory colitis. Clinical correlation recommended. 2. No pneumatosis, pneumoperitoneum, nor portal venous gas. Dictated by: Dictated on workstation # [id number]
[2017-03-11 09:40] VITALS: BP 112/69
== END 2017-03-11 09:42 | disposition home or self-care (01) ==
LOC: EDUNIT# 06:55 → ER 06:57
DX: R10.30 Lower abdominal pain, unspecified (principal); F17.210 Nicotine dependence, cigarettes, uncomplicated; Z98.51 Tubal ligation status; Z87.19 Personal history of other diseases of the digestive system; Z32.02 Encounter for pregnancy test, result negative
CPT/HCPCS: 36415; 74177; 80053; 81000; 83690; 84703; 85007; 85027

== ENCOUNTER 2017-08-07 18:07 | Emergency (ER) | payer MEDICAID ==
[~2017-08-07] VITALS: Ht 152.4 cm; Wt 49.9 kg
--- OUTSIDE RECORDS SUMMARY | 2017-08-07 18:23 | XMS REPORT | Clinical Summary ---
Author Author [facility] Organization [facility] Address Unknown Phone Unavailable Care Team Providers Care Test Deskman Name Role Phone PCP Unavailable Source Comments Some departments are not documenting in the electronic medical record. If you do not see the information that you expected, contact Release of Information in the Health Information Management department at [phone] for further assistance in locating additional records.[facility] Allergies No Known Allergies Current Medications Prescription Sig. Disp. Refills Start End Date Status Date oxycodone/acetaminophen Take 1-2 Tabs by mouth 30 0 06/25/20 Active (PERCOCET) 5/325 mg Every 4-6 Hours as needed 08 tablet for Pain. ibuprofen (MOTRIN) 600 mg Take 1 Tab by mouth Every 30 0 20 Active tablet 6 Hours as needed for [...] rupture of membranes in , delivered 06/25/2008 Family History Medical History Relation Name Comments Stroke Maternal Grandmother Relation Name Status Comments Maternal Grandmother Social History Tobacco Use Types Packs/Day Years Used Date Former Smoker Cigarettes 0.25 Quit: 12/26/2007 Alcohol Use Drinks/Week oz/Week Comments No Sex Assigned at Date Recorded Not on file Last Filed Vital Signs Vital Sign Reading Time Taken Blood Pressure 116/72 06/25/2008 3:00 PM CDT Pulse 106 06/25/2008 3:00 PM CDT Temperature 37.3 C (99.1 F) 06/25/2008 3:00 PM CDT Respiratory Rate - - Oxygen Saturation 100% 06/25/2008 3:00 PM CDT Inhaled Oxygen - - Concentration Weight 65.3 kg (144 lb) 06/22/2008 8:00 AM CDT Height 152.4 cm (5') 06/22/2008 8:00 AM CDT Body Mass Index 28.12 06/22/2008 8:00 AM CDT Plan of Treatment Health Maintenance Due Date Last Done Comments PHYSICAL (COMPREHENSIVE) 1992 EXAM PERTUSSIS VACCINE 1996 TETANUS VACCINE 2002 CERVICAL CANCER SCREENING 2015 INFLUENZA VACCINE 04/26/2017 Results Not on filefrom Last 3 Months
[2017-08-07] MEDS ORDERED: PROMETHAZINE INJ 25 MG/ML (PHENERGAN) AMP IVP ONE (19:45)
[2017-08-07] MEDS ORDERED: NS IV 1000 ML 1,000 ML IV SCH (19:45)
[2017-08-07] MEDS ORDERED: HYOSCYAMINE 0.125 MG (LEVSIN) TAB PO ONE (19:45)
[2017-08-07] MEDS ORDERED: KETOROLAC 30 MG/ML VIAL IVP ONE (19:45)
--- NOTE | 2017-08-07 19:46 | ED Abdominal Pain ---
General Chief Complaint: Abdominal/GI Problems Stated Complaint: STOMACH PAIN/VOMITING Nursing Triage Note: pt c/o right lower abd pain starting at 1400 today with n/v. Sepsis Screen: No Definite Risk Source of Information: Patient Exam Limitations: No Limitations History of Present Illness Time Seen By Provider: 19:44 Initial Comments To ER moaning and screaming with diffuse abdominal pain that began earlier today. Associated nausea and vomiting. No fevers or chills. Timing/Duration: 1-2 Days Severity/Quality: Moderate Radiation: No Radiation Associated Symptoms: Nausea/Vomiting Allergies and Home Medications Allergies Coded Allergies: No Known Drug Allergies (Verified , 12/31/16) Home Medications Potassium Chloride 10 Meq Capsule.er, 20 MEQ PO BID, #8 Prescribed by: JANNA JOHNSON on 02/08/17 0700 Review of Systems Constitutional: see HPI EENTM: No Symptoms Reported Respiratory: No Symptoms Reported Cardiovascular: No Symptoms Reported Gastrointestinal: See HPI, Abdominal Pain, Nausea, Vomiting Genitourinary: No Symptoms Reported Musculoskeletal: no symptoms reported Skin: no symptoms reported Psychiatric/Neurological: No Symptoms Reported Endocrine: No Symptoms Reported Hematologic/Lymphatic: No Symptoms Reported Past Gpyqhmc-Ajhdci-Ylynvd Hx Patient Social History Alcohol Beverage of Choice: Cheap Liquor Drug of Choice: HX OF + COCAINE UDS 11/2016 Type Used: Cigarettes Former Smoker, Quit: Dec 31, 2015 Recent Foreign Travel: No Contact w/Someone Who Travel: No Recent Infectious Disease Expo: No Recent Hopitalizations: No Immunizations Up To Date Tetanus Booster (TDap): More than 5yrs Seasonal Allergies Seasonal Allergies: Yes Surgeries History of Surgeries: No (I&D x3 of Bartholin cyct in GENITAL AREA, c/s x3, bartholin gland removal) Surgeries: Section, Tubal Ligation Respiratory History of Respiratory Disorde: No Cardiovascular History of Cardiac Disorders: No Neurological History of Neurological Disord: No Reproductive System Last Menstrual Period: Aug 03, 2017 Hx Reproductive Disorders: No Sexually Transmitted Disease: No HIV/AIDS: No Female Reproductive Disorders: Denies 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 Genitourinary History of Genitourinary Disor: No Gastrointestinal History of Gastrointestinal Di: Yes (frequent N/V visits to ER) Gastrointestinal Disorders: Pancreatitis Musculoskeletal History of Musculoskeletal Dis: No Endocrine History of Endocrine Disorders: No HEENT History of HEENT Disorders: No Loss of Vision: Denies Hearing Impairment: Denies Cancer History of Cancer: No Psychosocial History of Psychiatric Problem: Yes Behavioral Health Disorders: Anxiety, Bipolar, Depression Integumentary History of Skin or Integumenta: No Blood Transfusions History of Blood Disorders: No Family Medical History Significant Family History: No Pertinent Family Hx Family Medial History: Congestive heart failure G8 SISTER Family history: Diabetes mellitus G8 SISTER History of - anemia 19 MOTHER G8 SISTER History of - disorder G8 SISTER (MS) No Family History of: Abdominal aortic aneurysm Alcoholism Cancer Dementia Family history: Alzheimer's disease Family history: Arthritis Family history: Asthma Family history: Breast disease Family history: Cardiovascular disease Family history: Gastrointestinal disease Family history: Hypertension Family history: Thyroid disorder Hereditary disease History of - respiratory disease Kidney disease Myocardial infarction Parkinson's disease Prostate cancer Psychotic disorder Seizure disorder Stroke Physical Exam Vital Signs VS - Last 72 Hours, by Label 08/07/17 19:30 Temp 95.7 B/P (MAP) 123/75 Capillary Refill : Less Than 3 Seconds General Appearance: WD/WN, no apparent distress HEENT: PERRL/EOMI, normal ENT inspection Neck: non-tender, full range of motion Respiratory: no respiratory distress, no accessory muscle use Cardiovascular: regular rate, rhythm, no murmur Gastrointestinal: normal bowel sounds, soft, tenderness Extremities: normal range of motion, non-tender Neurologic/Psychiatric: alert, normal mood/affect, oriented x 3 Skin: normal color, warm/dry Progress/Results/Core Measures Results/Orders Lab Results Laboratory Tests Test 08/07/17 19:41 08/07/17 21:36 Range/Units White Blood Count 19.7 H 4.3-11.0 10^3/uL Red Blood Count 4.33 L 4.35-5.85 10^6/uL Hemoglobin 12.2 11.5-16.0 G/DL Hematocrit 38 35-52 % Mean Corpuscular Volume 88 80-99 FL Mean Corpuscular Hemoglobin 28 25-34 PG Mean Corpuscular Hemoglobin Concent 32 32-36 G/DL Red Cell Distribution Width 15.2 H 10.0-14.5 % Platelet Count 350 130-400 10^3/uL Mean Platelet Volume 11.2 H 7.4-10.4 FL Neutrophils (%) (Auto) 82 H 42-75 % Lymphocytes (%) (Auto) 13 12-44 % Monocytes (%) (Auto) 4 0-12 % Eosinophils (%) (Auto) 0 0-10 % Basophils (%) (Auto) 1 0-10 % Neutrophils # (Auto) 16.2 H 1.8-7.8 X 10^3 Lymphocytes # (Auto) 2.6 1.0-4.0 X 10^3 Monocytes # (Auto) 0.8 0.0-1.0 X 10^3 Eosinophils # (Auto) 0.0 0.0-0.3 10^3/uL Basophils # (Auto) 0.1 0.0-0.1 10^3/uL Neutrophils % (Manual) 82 % Lymphocytes % (Manual) 14 % Monocytes % (Manual) 2 % Eosinophils % (Manual) 0 % Basophils % (Manual) 0 % Band Neutrophils 2 % Blood Morphology Comment NORMAL Sodium Level 143 135-145 MMOL/L Potassium Level 3.8 3.6-5.0 MMOL/L Chloride Level 110 H 98-107 MMOL/L Carbon Dioxide Level 14 L 21-32 MMOL/L Anion Gap 19 H 5-14 MMOL/L Blood Urea Nitrogen 13 7-18 MG/DL Creatinine 0.74 0.60-1.30 MG/DL Estimat Glomerular Filtration Rate > 60 BUN/Creatinine Ratio 18 Glucose Level 110 H 70-105 MG/DL Calcium Level 9.5 8.5-10.1 MG/DL Total Bilirubin 0.3 0.1-1.0 MG/DL Aspartate Amino Transf (AST/SGOT) 43 H 5-34 U/L Alanine Aminotransferase (ALT/SGPT) 38 0-55 U/L Alkaline Phosphatase 78 40-136 U/L Total Protein 8.3 H 6.4-8.2 GM/DL Albumin 4.7 H 3.2-4.5 GM/DL Lipase 5 L 8-78 U/L Serum Alcohol < 10 <10 MG/DL Urine Color YELLOW Urine Clarity CLEAR Urine pH 8 5-9 Urine Specific Midnight 1.010 L 1.016-1.022 Urine Protein 2+ H NEGATIVE Urine Glucose (UA) NEGATIVE NEGATIVE Urine Ketones 3+ H NEGATIVE Urine Nitrite NEGATIVE NEGATIVE Urine Bilirubin NEGATIVE NEGATIVE Urine Urobilinogen NORMAL NORMAL MG/DL Urine Leukocyte Esterase NEGATIVE NEGATIVE Urine RBC (Auto) 2+ H NEGATIVE Urine RBC 0-2 /HPF Urine WBC RARE /HPF Urine Squamous Epithelial Cells 0-2 /HPF Urine Crystals NONE /LPF Urine Bacteria NEGATIVE /HPF Urine Casts NONE /LPF Urine Mucus NEGATIVE /LPF Urine Culture Indicated NO My Orders Orders - SASHA CARLSON APRN Ua Culture If Indicated (08/07/17 19:42) Drug Screen Stat (Urine) (08/07/17 19:42) Alcohol (08/07/17 19:42) Cbc With Automated Diff (08/07/17 19:42) Comprehensive Metabolic Panel (08/07/17 19:42) Lipase (08/07/17 19:42) Saline Lock/Iv-Start (08/07/17 19:42) Urine Bedside (08/07/17 19:42) Hyoscyamine Sl Tablet (Levsin Sl Tablet) (08/07/17 19:45) Promethazine Injection (Phenergan Injec (08/07/17 19:45) Ketorolac Injection (Toradol Injection) (08/07/17 19:45) Ns Iv 1000 Ml (Sodium Chloride 0.9%) (08/07/17 19:45) Manual Differential (08/07/17 19:41) Ct Abdomen/Pelvis W (08/07/17 20:06) Ondansetron Injection (Zofran Injectio (08/07/17 21:00) Ondansetron Injection (Zofran Injectio (08/07/17 20:43) Fentanyl Injection (Sublimaze Injection (08/07/17 21:30) Medications Given in ED Current Medications Medications Dose Ordered Sig/Deniz Route Start Time Stop Time Status Last Admin Dose Admin Fentanyl Citrate 50 mcg ONCE ONCE IVP 08/07/17 21:30 08/07/17 21:31 DC 08/07/17 21:27 50 MCG Hyoscyamine Sulfate 0.25 mg ONCE ONCE PO 08/07/17 19:45 08/07/17 19:46 DC 08/07/17 20:05 0.25 MG Iohexol 100 ml ONCE ONCE IV 08/07/17 20:15 08/07/17 20:16 UNV 08/07/17 20:19 100 ML Ketorolac Tromethamine 30 mg ONCE ONCE IVP 08/07/17 19:45 08/07/17 19:46 DC 08/07/17 20:04 30 MG Ondansetron HCl 8 mg ONCE ONCE IVP 08/07/17 21:00 08/07/17 21:01 DC 08/07/17 20:53 8 MG Promethazine HCl 25 mg ONCE ONCE IVP 08/07/17 19:45 08/07/17 19:46 DC 08/07/17 20:04 25 MG Sodium Chloride 100 ml ONCE ONCE IV 08/07/17 20:15 08/07/17 20:16 UNV 08/07/17 20:19 100 ML Vital Signs/I&O Vital Sign - Last 12Hours 08/07/17 19:30 Temp 95.7 B/P (MAP) 123/75 Blood Pressure Mean: 91 Diagnostic Imaging Diagonstic Imaging: CT Comments NAME: YASIR BO [facility] REC#: [id number] PT STATUS: REG ER : 1985 PHYSICIAN: SASHA CARLSON APRN ADMIT DATE: 08/07/17/ER Draft Date of Exam:08/07/17 CT ABDOMEN/PELVIS W PROCEDURE: CT abdomen and pelvis with contrast. TECHNIQUE: Multiple contiguous axial images were obtained through the abdomen and pelvis after administration of intravenous contrast. INDICATION: Right flank pain with nausea, vomiting, and diarrhea x6 hours. CORRELATION STUDY: Most recent 03/11/2017. FINDINGS: LOWER THORAX: Clear. LIVER: Unremarkable. GALLBLADDER: Present and unremarkable. No bile duct dilatation. SPLEEN: Unremarkable. PANCREAS: Unremarkable. ADRENAL GLANDS: Unremarkable. KIDNEYS: Low-density mass left kidney compatible with a cyst at 15 mm in size. Otherwise normal enhancement. No hydronephrosis or obstruction. ABDOMINAL AORTA: Unremarkable, nonaneurysmal. GASTROINTESTINAL TRACT: Stomach distended with fluid. Small bowel relatively collapsed apart from a few fluid-filled loops. The colon is collapsed. There is suggestion of some wall thickening particularly of the transverse but also the remainder of the colon. There does appear to be at least partial visualization of portion of the appendix in the right hemipelvis posteriorly with air in the lumen. No free air. Trace amount of pelvic fluid. URINARY BLADDER: Unremarkable. REPRODUCTIVE: Uterus and adnexa relatively unremarkable. Gas and heterogeneous contents within the vaginal vault could be reflective of a tampon. Metallic foreign body at the level of the labia. OSSEOUS STRUCTURES: No acute abnormality. IMPRESSION: 1. There is suggestion of some diffuse wall thickening and enhancement of the colon. Colon is collapsed and may be accounting for this. However, possibility of diffuse colitis is suspect. Underlying enteritis not excluded. Dictated on workstation # [id number] Dict: 08/07/172035 Trans: 08/07/172044 [facility] [id number] Interpreted by: SANG VITALE DO Electronically signed by: Departure Communication (Admissions) Progress Notes Today's CT report is no different than the CT report from February of this year. Additionally, the patient does not report any diarrhea or loose stools that would support a diagnosis of colitis. Leukocytosis likely secondary to the vomiting 2220- patient is sleeping at this time. Lab reports that the urinalysis is unable to be run from a drug screen standpoint because the sample itself is invalid and there is something that has been put in the sample causing the machine to read an error. We did not witness her providing the urine sample. Impression Impression: Primary Impression: Diffuse abdominal pain Disposition: HOME, SELF-CARE Condition: Stable Departure-Patient Inst. Decision time for Depature: 22:21 Referrals: [facility] (PCP/Family) Primary Care Physician Patient Instructions: NO INSTRUCTIONS GIVEN Add. Discharge Instructions: 1. Return to ER for any concerns 2. Follow-up with your doctor next week 3. You must stop using marijuana completely has that is oftentimes a contributing substance to recurrent episodes of nausea vomiting and abdominal pain. SASHA CARLSON FLASH DEVELOPER Aug 07, 2017 19:46
[2017-08-07 19:48] LABS: BASOPHILS # (AUTO) 0.1 10^3/uL (0.0-0.1); BASOPHILS % (AUTO) 1 % (0-10); EOSINOPHILS % (AUTO) 0 % (0-10); LYMPHOCYTES # (AUTO) 2.6 X 10^3 (1.0-4.0); LYMPHOCYTES % (AUTO) 13 % (12-44); MEAN CORPUSCULAR HEMOGLOBIN 28 PG (25-34); MEAN CORPUSCULAR HGB CONC 32 G/DL (32-36); MEAN CORPUSCULAR VOLUME 88 FL (80-99); MEAN PLATELET VOLUME 11.2 FL (7.4-10.4); MONOCYTES # (AUTO) 0.8 X 10^3 (0.0-1.0); MONOCYTES % (AUTO) 4 % (0-12); NEUTROPHILS # (AUTO) 16.2 X 10^3 (1.8-7.8); NEUTROPHILS % (AUTO) 82 % (42-75); PLATELET COUNT 350 10^3/uL (130-400); RED BLOOD COUNT 4.33 10^6/uL (4.35-5.85); RED CELL DISTRIBUTION WIDTH 15.2 % (10.0-14.5); WHITE BLOOD COUNT 19.7 10^3/uL (4.3-11.0)
[2017-08-07 20:09] LABS: ALANINE AMINOTRANSFERASE 38 U/L (0-55); ALBUMIN 4.7 GM/DL (3.2-4.5); ALCOHOL < 10 MG/DL (<10); ANION GAP 19 MMOL/L (5-14); ASPARTATE AMINO TRANSFERASE 43 U/L (5-34); BILIRUBIN,TOTAL 0.3 MG/DL (0.1-1.0); BLOOD UREA NITROGEN 13 MG/DL (7-18); BUN/CREATININE RATIO 18; CALCIUM 9.5 MG/DL (8.5-10.1); CARBON DIOXIDE 14 MMOL/L (21-32); CHLORIDE 110 MMOL/L (98-107); CREATININE SERUM 0.74 MG/DL (0.60-1.30); GFR ESTIMATED > 60; GLUCOSE 110 MG/DL (70-105); LIPASE 5 U/L (8-78); POTASSIUM 3.8 MMOL/L (3.6-5.0); SODIUM 143 MMOL/L (135-145); TOTAL PROTEIN 8.3 GM/DL (6.4-8.2)
[2017-08-07] MEDS ORDERED: IOHEXOL 350 MG/ML 100 ML (OMNIPAQUE 350) VIAL IV ONE (20:15)
[2017-08-07] MEDS ORDERED: NS 100 ML (IVPB) BAG IV ONE (20:15)
[2017-08-07 20:22] LABS: BAND NEUTROPHILS 2 %; BASOPHILS % (MANUAL) 0 %; EOSINOPHILS % (MANUAL) 0 %; LYMPHOCYTES % (MANUAL) 14 %; NEUTROPHILS % (MANUAL) 82 %
[2017-08-07] MEDS ORDERED: ONDANSETRON 4 MG/2 ML (SDV) Z0FRAN ONE (20:43)
--- NOTE | 2017-08-07 20:46 | Diagnostic Imaging Report ---
PROCEDURE: CT abdomen and pelvis with contrast. TECHNIQUE: Multiple contiguous axial images were obtained through the abdomen and pelvis after administration of intravenous contrast. INDICATION: Right flank pain with nausea, vomiting, and diarrhea x6 hours. CORRELATION STUDY: Most recent 03/11/2017. FINDINGS: LOWER THORAX: Clear. LIVER: Unremarkable. GALLBLADDER: Present and unremarkable. No bile duct dilatation. SPLEEN: Unremarkable. PANCREAS: Unremarkable. ADRENAL GLANDS: Unremarkable. KIDNEYS: Low-density mass left kidney compatible with a cyst at 15 mm in size. Otherwise normal enhancement. No hydronephrosis or obstruction. ABDOMINAL AORTA: Unremarkable, nonaneurysmal. GASTROINTESTINAL TRACT: Stomach distended with fluid. Small bowel relatively collapsed apart from a few fluid-filled loops. The colon is collapsed. There is suggestion of some wall thickening particularly of the transverse but also the remainder of the colon. There does appear to be at least partial visualization of portion of the appendix in the right hemipelvis posteriorly with air in the lumen. No free air. Trace amount of pelvic fluid. URINARY BLADDER: Unremarkable. REPRODUCTIVE: Uterus and adnexa relatively unremarkable. Gas and heterogeneous contents within the vaginal vault could be reflective of a tampon. Metallic foreign body at the level of the labia. OSSEOUS STRUCTURES: No acute abnormality. IMPRESSION: 1. There is suggestion of some diffuse wall thickening and enhancement of the colon. Colon is collapsed and may be accounting for this. However, possibility of diffuse colitis is suspect. Underlying enteritis not excluded. Dictated by: Dictated on workstation # [id number]
[2017-08-07] MEDS ORDERED: ONDANSETRON 4 MG/2 ML (SDV) Z0FRAN IVP ONE (21:00)
[2017-08-07] MEDS ORDERED: fentaNYL INJECTION 100 MCG/2 ML AMP IVP ONE (21:30)
[2017-08-07 21:44] LABS: BILIRUBIN,URINE NEGATIVE (NEGATIVE); KETONES,URINE 3+ (NEGATIVE); LEUKOCYTE ESTERASE ,URINE NEGATIVE (NEGATIVE); NITRITE,URINE NEGATIVE (NEGATIVE); PH,URINE 8 (5-9); PROTEIN,URINE 2+ (NEGATIVE); UROBILINOGEN,URINE NORMAL (NORMAL)
[2017-08-07 21:51] LABS: SQUAMOUS EPITHELIAL CELL,UR 0-2 /HPF; WBC,URINE RARE /HPF
[2017-08-07] MEDS ORDERED: RX-ONDANSETRON 4 MG ODT (ZOFRAN) PPK #4 ONE (22:35)
[2017-08-07 22:42] VITALS: BP 119/69
== END 2017-08-07 22:42 | disposition home or self-care (01) ==
LOC: EDUNIT# 18:07 → ER 18:09
DX: R10.84 Generalized abdominal pain (principal); F41.9 Anxiety disorder, unspecified; F31.9 Bipolar disorder, unspecified; Z82.49 Family history of ischemic heart disease and other diseases of the circulatory system; Z87.891 Personal history of nicotine dependence; Z98.51 Tubal ligation status; Z87.59 Personal history of other complications of pregnancy, childbirth and the puerperium; Z87.19 Personal history of other diseases of the digestive system
CPT/HCPCS: 36415; 74177; 80053; 80320; 81000; 83690; 85007; 85027

== ENCOUNTER 2017-10-05 14:07 | Emergency (ER) | payer MEDICAID ==
[~2017-10-05] VITALS: Ht 152.4 cm; Wt 52.2 kg
[~2017-10-05 14:07] MED LIST changes: +ACHD5005 PO; -HYDR-3812 PO
[2017-10-05] MEDS ORDERED: ONDANSETRON 4 MG/2 ML (SDV) Z0FRAN ONE (14:14)
[2017-10-05] MEDS ORDERED: NS IV 1000 ML 1,000 ML IV ONE (14:23)
[2017-10-05] MEDS ORDERED: ONDANSETRON 4 MG/2 ML (SDV) Z0FRAN IVP ONE (14:30)
[2017-10-05 14:35] LABS: BASOPHILS # (AUTO) 0.1 10^3/uL (0.0-0.1); BASOPHILS % (AUTO) 0 % (0-10); EOSINOPHILS % (AUTO) 0 % (0-10); HEMATOCRIT 40 % (35-52); LYMPHOCYTES # (AUTO) 3.3 X 10^3 (1.0-4.0); LYMPHOCYTES % (AUTO) 16 % (12-44); MEAN CORPUSCULAR HEMOGLOBIN 28 PG (25-34); MEAN CORPUSCULAR HGB CONC 33 G/DL (32-36); MEAN CORPUSCULAR VOLUME 86 FL (80-99); MEAN PLATELET VOLUME 11.2 FL (7.4-10.4); MONOCYTES # (AUTO) 0.6 X 10^3 (0.0-1.0); MONOCYTES % (AUTO) 3 % (0-12); NEUTROPHILS # (AUTO) 16.7 X 10^3 (1.8-7.8); NEUTROPHILS % (AUTO) 81 % (42-75); PLATELET COUNT 403 10^3/uL (130-400); RED BLOOD COUNT 4.61 10^6/uL (4.35-5.85); RED CELL DISTRIBUTION WIDTH 14.6 % (10.0-14.5); WHITE BLOOD COUNT 20.8 10^3/uL (4.3-11.0)
[2017-10-05 14:39] LABS: BILIRUBIN,URINE NEGATIVE (NEGATIVE); CLARITY,URINE CLEAR; COLOR,URINE YELLOW; GLUCOSE, URINE (UA) NEGATIVE (NEGATIVE); KETONES,URINE 4+ (NEGATIVE); LEUKOCYTE ESTERASE ,URINE 1+ (NEGATIVE); NITRITE,URINE NEGATIVE (NEGATIVE); PH,URINE 6 (5-9); PROTEIN,URINE 2+ (NEGATIVE); UROBILINOGEN,URINE NORMAL (NORMAL)
[2017-10-05 14:46] LABS: BACTERIA,URINE TRACE /HPF
[2017-10-05 14:52] LABS: BAND NEUTROPHILS 0 %; BASOPHILS % (MANUAL) 0 %; EOSINOPHILS % (MANUAL) 0 %; LYMPHOCYTES % (MANUAL) 21 %; MONOCYTES % (MANUAL) 5 %; NEUTROPHILS % (MANUAL) 74 %; RBC MORPH NORMAL
[2017-10-05 14:53] LABS: ALANINE AMINOTRANSFERASE 35 U/L (0-55); ALBUMIN 4.7 GM/DL (3.2-4.5); ALKALINE PHOSPHATASE 101 U/L (40-136); AMYLASE 57 U/L (25-125); BILIRUBIN,TOTAL 0.4 MG/DL (0.1-1.0); BUN/CREATININE RATIO 16; CALCIUM 9.4 MG/DL (8.5-10.1); CARBON DIOXIDE 13 MMOL/L (21-32); CHLORIDE 112 MMOL/L (98-107); CREATININE SERUM 0.76 MG/DL (0.60-1.30); GFR ESTIMATED > 60; GLUCOSE 82 MG/DL (70-105); LIPASE 8 U/L (8-78); MAGNESIUM 1.9 MG/DL (1.8-2.4); POTASSIUM 3.3 MMOL/L (3.6-5.0); SODIUM 146 MMOL/L (135-145); TOTAL PROTEIN 8.7 GM/DL (6.4-8.2)
[2017-10-05 14:53] LABS: AMPHETAMINE SCREEN, URINE NEGATIVE (NEGATIVE); BARBITURATE SCREEN URINE NEGATIVE (NEGATIVE); BENZODIAZEPINES SCREEN URINE NEGATIVE (NEGATIVE); CANNABINOID SCREEN, URINE POSITIVE (NEGATIVE); COCAINE SCREEN URINE NEGATIVE (NEGATIVE); METHADONE STAT NEGATIVE (NEGATIVE); METHAMPHETAMINE SCREEN URINE S NEGATIVE (NEGATIVE); OPIATE SCREEN URINE NEGATIVE (NEGATIVE); OXYCODONE STAT NEGATIVE (NEGATIVE); PROPOXYPHENE STAT NEGATIVE (NEGATIVE); TRICYCLIC ANTIDEPRESSANTS SCRE NEGATIVE (NEGATIVE)
[2017-10-05] MEDS ORDERED: PROMETHAZINE INJ 25 MG/ML (PHENERGAN) AMP IVP ONE (15:00)
[2017-10-05] MEDS ORDERED: ORPHENADRINE 60 MG/2 ML (NORFLEX) AMP IV ONE (15:00)
[2017-10-05] MEDS ORDERED: diphenhydrAMINE 50 MG/ML INJ (BENADRYL) IVP ONE (15:00)
[2017-10-05] MEDS ORDERED: KETOROLAC 30 MG/ML VIAL IVP ONE (15:00)
--- NOTE | 2017-10-05 15:18 | ED Abdominal Pain ---
General Chief Complaint: Abdominal/GI Problems Stated Complaint: N/V/D Nursing Triage Note: PT REPORTS ABDOMINAL PAIN AND N/V STARTING THIS AM. Sepsis Screen: No Definite Risk Source of Information: Patient History of Present Illness Time Seen By Provider: 14:20 Initial Comments C/O SEVERE ABDOMINAL PAIN SINCE 10 AM TODAY HAS CONSTANT PAIN IN MID LOWER ABDOMEN AND INTERMITTENT PAIN IN LEFT MID ABDOMEN C/O NAUSEA AND VOMITING-MULTIPLE TIMES "TOO MANY TO COUNT" NO DIARRHEA NO FEVER NO PROBLEMS URINATING TOOK OTC PAIN RELIEVER WITHOUT IMPROVEMENT PT STATES SHE HAS HISTORY OF PANCREATITIS HAS HISTORY OF ALCOHOL ABUSE AND DX OF ALCOHOLIC GASTRITIS--DRINKS ALMOST DAILY "ALOT" PT ALSO WITH CHRONIC MARIJUANA USE-STATES SHE USES "ALOT", ALSO USES COCAINE AT TIMES PT WITH MULTITUDE OF VISITS TO ER FOR SAME Allergies and Home Medications Allergies Coded Allergies: No Known Drug Allergies (Verified , 12/31/16) Home Medications Hyoscyamine Sulfate 0.125 Mg Tab.subl, 1-2 TAB SL Q4H, #15 Prescribed by: ROSA BRADY on 10/05/17 1559 Ondansetron 8 Mg Tab.rapdis, 8 MG PO Q4H, #14 Prescribed by: ROSA BRADY on 10/05/17 1559 Pantoprazole Sodium 40 Mg Tablet.dr, 40 MG PO DAILY, #15 Prescribed by: ROSA BRADY on 10/05/17 1559 Potassium Chloride 10 Meq Capsule.er, 20 MEQ PO BID, #8 Prescribed by: JANNA JOHNSON on 02/08/17 0700 Scopolamine 1 Each Patch.td72, 1 EACH TD Q72 HOURS, #3 Prescribed by: ROSA BRADY on 10/05/17 1559 Sucralfate 1 Gm/10 Ml Oral.susp, 1 GM PO QID, #400 Prescribed by: ROSA BRADY on 10/05/17 1559 Review of Systems Constitutional: no symptoms reported Respiratory: No Symptoms Reported Cardiovascular: No Symptoms Reported Gastrointestinal: See HPI, Abdominal Pain, Nausea, Poor Appetite, Poor Fluid Intake, Vomiting Genitourinary: No Symptoms Reported Musculoskeletal: no symptoms reported Skin: no symptoms reported Psychiatric/Neurological: See HPI, Anxiety Endocrine: No Symptoms Reported Hematologic/Lymphatic: No Symptoms Reported Past [place]-Afiith-Btuasr Hx Patient Social History Alcohol Use: Regular Use (HEAVY, ALMOST DAILY USE-"AT LEAST 5 CUPS" OF HARD LIQUOR AT A TIME) Number of Drinks Today: CC Alcohol Beverage of Choice: Cheap Liquor Recreational Drug Use: Yes (THC, COCAINE) Drug of Choice: THC -HEAVY, DAILY USE; COCAINE USE-DENIES IV USE Smoking Status: Current Everyday Smoker Type Used: Cigarettes (1 PPD) Recent Foreign Travel: No Contact w/Someone Who Travel: No Recent Infectious Disease Expo: No Recent Hopitalizations: No Physical Abuse: No Sexual Abuse: No Mistreated: No Immunizations Up To Date Tetanus Booster (TDap): More than 5yrs Seasonal Allergies Seasonal Allergies: Yes Surgeries History of Surgeries: Yes (I&D x3 OF BARTHOLIN'S CYST/ABSCESSES; REMOVAL OF LEFT BARTHOLIN'S GLAND AND RIGHT LABIAL MASS; X3; BTL) Surgeries: Section, Tubal Ligation Respiratory History of Respiratory Disorde: No Cardiovascular History of Cardiac Disorders: No Neurological History of Neurological Disord: No Reproductive System Hx Reproductive Disorders: Yes (BARTHOLIN'S ABSCESSES) Sexually Transmitted Disease: Yes (CHLAMYDIA) HIV/AIDS: No Female Reproductive Disorders: Denies [employer]INA [employer]GER History: Tubal Ligation Genitourinary History of Genitourinary Disor: No Gastrointestinal History of Gastrointestinal Di: Yes (FREQUENT VISITS FOR NAUSEA/VOMITING/ ABDOMINAL PAIN ; ALCOHOLIC GASTRITIS) Gastrointestinal Disorders: Pancreatitis Musculoskeletal History of Musculoskeletal Dis: No Endocrine History of Endocrine Disorders: No HEENT History of HEENT Disorders: No Loss of Vision: Denies Hearing Impairment: Denies Cancer History of Cancer: No Psychosocial History of Psychiatric Problem: Yes (OVERDOSE 2006) Behavioral Health Disorders: Anxiety, Suicide Attempts, Bipolar, Depression Suicide Risk Score: 0 Integumentary History of Skin or Integumenta: No Blood Transfusions History of Blood Disorders: No Family Medical History Significant Family History: No Pertinent Family Hx Family Medial History: Congestive heart failure G8 SISTER Family history: Diabetes mellitus G8 SISTER History of - anemia 19 MOTHER G8 SISTER History of - disorder G8 SISTER (MS) No Family History of: Abdominal aortic aneurysm Alcoholism Cancer Dementia Family history: Alzheimer's disease Family history: Arthritis Family history: Asthma Family history: Breast disease Family history: Cardiovascular disease Family history: Gastrointestinal disease Family history: Hypertension Family history: Thyroid disorder Hereditary disease History of - respiratory disease Kidney disease Myocardial infarction Parkinson's disease Prostate cancer Psychotic disorder Seizure disorder Stroke Physical Exam Vital Signs VS - Last 72 Hours, by Label 10/05/17 10/05/17 14:30 16:15 Temp 96.3 Pulse 83 52 Resp 20 18 B/P (MAP) 87/71 (76) Pulse Ox 99 98 Capillary Refill : Less Than 3 Seconds General Appearance: thin, other (VERY DRAMATIC--WALKS BENT AT WAIST WITH FEMALE ASSISTING HER. WAILING/MOANING VERY LOUDLY, ANXIOUS, CONSTANT MOVEMENTS. 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 ) HEENT: PERRL/EOMI, other (MISSING TEETH) Respiratory: normal breath sounds, no respiratory distress, no accessory muscle use Cardiovascular: regular rate, rhythm, no murmur Gastrointestinal: normal bowel sounds, soft, no organomegaly, no pulsatile mass , No distended, guarding, No rebound, tenderness (SUPRAPUBIC AND DIFFUSE LEFT SIDED ABDOMINAL TENDERNESS), No hernia, No mass Back: CVA tenderness (L) Neurologic/Psychiatric: coroner II-XII nml as tested, no motor/sensory deficits, alert, oriented x 3 Skin: normal color, warm/dry, tattoos/piercings (MULTIPLE TATTOOS) Progress/Results/Core Measures Results/Orders Lab Results Laboratory Tests Test 10/05/17 14:25 10/05/17 14:31 Range/Units White Blood Count 20.8 H 4.3-11.0 10^3/uL Red Blood Count 4.61 4.35-5.85 10^6/uL Hemoglobin 13.0 11.5-16.0 G/DL Hematocrit 40 35-52 % Mean Corpuscular Volume 86 80-99 FL Mean Corpuscular Hemoglobin 28 25-34 PG Mean Corpuscular Hemoglobin Concent 33 32-36 G/DL Red Cell Distribution Width 14.6 H 10.0-14.5 % Platelet Count 403 H 130-400 10^3/uL Mean Platelet Volume 11.2 H 7.4-10.4 FL Neutrophils (%) (Auto) 81 H 42-75 % Lymphocytes (%) (Auto) 16 12-44 % Monocytes (%) (Auto) 3 0-12 % Eosinophils (%) (Auto) 0 0-10 % Basophils (%) (Auto) 0 0-10 % Neutrophils # (Auto) 16.7 H 1.8-7.8 X 10^3 Lymphocytes # (Auto) 3.3 1.0-4.0 X 10^3 Monocytes # (Auto) 0.6 0.0-1.0 X 10^3 Eosinophils # (Auto) 0.0 0.0-0.3 10^3/uL Basophils # (Auto) 0.1 0.0-0.1 10^3/uL Neutrophils % (Manual) 74 % Lymphocytes % (Manual) 21 % Monocytes % (Manual) 5 % Eosinophils % (Manual) 0 % Basophils % (Manual) 0 % Band Neutrophils 0 % Blood Morphology Comment NORMAL Sodium Level 146 H 135-145 MMOL/L Potassium Level 3.3 L 3.6-5.0 MMOL/L Chloride Level 112 H 98-107 MMOL/L Carbon Dioxide Level 13 L 21-32 MMOL/L Anion Gap 21 H 5-14 MMOL/L Blood Urea Nitrogen 12 7-18 MG/DL Creatinine 0.76 0.60-1.30 MG/DL Estimat Glomerular Filtration Rate > 60 BUN/Creatinine Ratio 16 Glucose Level 82 70-105 MG/DL Calcium Level 9.4 8.5-10.1 MG/DL Magnesium Level 1.9 1.8-2.4 MG/DL Total Bilirubin 0.4 0.1-1.0 MG/DL Aspartate Amino Transf (AST/SGOT) 41 H 5-34 U/L Alanine Aminotransferase (ALT/SGPT) 35 0-55 U/L Alkaline Phosphatase 101 40-136 U/L Total Protein 8.7 H 6.4-8.2 GM/DL Albumin 4.7 H 3.2-4.5 GM/DL Amylase Level 57 25-125 U/L Lipase 8 8-78 U/L Serum Test, Qualitative NEGATIVE NEGATIVE Serum Alcohol 44 H <10 MG/DL Urine Color YELLOW Urine Clarity CLEAR Urine pH 6 5-9 Urine Specific [place] 1.020 1.016-1.022 Urine Protein 2+ H NEGATIVE Urine Glucose (UA) NEGATIVE NEGATIVE Urine Ketones 4+ H NEGATIVE Urine Nitrite NEGATIVE NEGATIVE Urine Bilirubin NEGATIVE NEGATIVE Urine Urobilinogen NORMAL NORMAL MG/DL Urine Leukocyte Esterase 1+ H NEGATIVE Urine RBC (Auto) 3+ H NEGATIVE Urine RBC 2-5 H /HPF Urine WBC 5-10 H /HPF Urine Squamous Epithelial Cells 5-10 /HPF Urine Crystals NONE /LPF Urine Bacteria TRACE /HPF Urine Casts NONE /LPF Urine Mucus NEGATIVE /LPF Urine Culture Indicated YES Urine Opiates Screen NEGATIVE NEGATIVE Urine Oxycodone Screen NEGATIVE NEGATIVE Urine Methadone Screen NEGATIVE NEGATIVE Urine Propoxyphene Screen NEGATIVE NEGATIVE Urine Barbiturates Screen NEGATIVE NEGATIVE Ur Tricyclic Antidepressants Screen NEGATIVE NEGATIVE Urine Phencyclidine Screen NEGATIVE NEGATIVE Urine Amphetamines Screen NEGATIVE NEGATIVE Urine Methamphetamines Screen NEGATIVE NEGATIVE Urine Benzodiazepines Screen NEGATIVE NEGATIVE Urine Cocaine Screen NEGATIVE NEGATIVE Urine Cannabinoids Screen POSITIVE H NEGATIVE My Orders Orders - ROSA BRADY DO Ondansetron Injection (Zofran Injectio (10/05/17 14:14) Saline Lock/Iv-Start (10/05/17 14:23) Alcohol (10/05/17 14:23) Amylase (10/05/17 14:23) Cbc With Automated Diff (10/05/17 14:23) Comprehensive Metabolic Panel (10/05/17 14:23) Drug Screen Stat (Urine) (10/05/17 14:23) Hcg,Qualitative Serum (10/05/17 14:23) Lipase (10/05/17 14:23) Magnesium (10/05/17 14:23) Ua Culture If Indicated (10/05/17 14:23) Ondansetron Injection (Zofran Injectio (10/05/17 14:30) Saline Lock/Iv-Start (10/05/17 14:23) Ns Iv 1000 Ml (Sodium Chloride 0.9%) (10/05/17 14:23) Urine Bedside (10/05/17 14:32) Manual Differential (10/05/17 14:25) Urine Culture (10/05/17 14:31) Ketorolac Injection (Toradol Injection) (10/05/17 15:00) Ct Abd/Pelvis Wo(Kidney Stone) (10/05/17 14:53) Abdomen/Kub 1view (10/05/17 14:53) Promethazine Injection (Phenergan Injec (10/05/17 15:00) Diphenhydramine Injection (Benadryl Inje (10/05/17 15:00) Orphenadrine Injection (Norflex Injectio (10/05/17 15:00) Scopolamine Patch (Transderm-Scop Patch) (10/05/17 16:00) Hyoscyamine Sl Tablet (Levsin Sl Tablet) (10/05/17 16:00) Medications Given in ED Current Medications Medications Dose Ordered Sig/Deniz Route Start Time Stop Time Status Last Admin Dose Admin Diphenhydramine HCl 25 mg ONCE ONCE IVP 10/05/17 15:00 10/05/17 15:01 DC 10/05/17 15:04 25 MG Hyoscyamine Sulfate 0.25 mg ONCE ONCE PO 10/05/17 16:00 10/05/17 16:01 DC 10/05/17 16:12 0.25 MG Ketorolac Tromethamine 30 mg ONCE ONCE IVP 10/05/17 15:00 10/05/17 15:01 DC 10/05/17 14:52 30 MG Ondansetron HCl 8 mg ONCE ONCE IVP 10/05/17 14:30 10/05/17 14:31 DC 10/05/17 14:44 8 MG Orphenadrine Citrate 60 mg ONCE ONCE IV 10/05/17 15:00 10/05/17 15:01 DC 10/05/17 15:04 60 MG Promethazine HCl 25 mg ONCE ONCE IVP 10/05/17 15:00 10/05/17 15:01 DC 10/05/17 15:04 25 MG Scopolamine 1.5 mg ONCE ONCE TD 10/05/17 16:00 10/05/17 16:01 DC 10/05/17 16:12 1.5 MG Sodium Chloride 1,000 ml @ 0 mls/hr Q0M ONCE IV 10/05/17 14:23 10/05/17 14:25 DC 10/05/17 14:45 0 MLS/HR Vital Signs/I&O Vital Sign - Last 12Hours 10/05/17 10/05/17 14:30 16:15 Temp 96.3 Pulse 83 52 Resp 20 18 B/P (MAP) 87/71 (76) Pulse Ox 99 98 Blood Pressure Mean: 76 Point of Care Testing Urine -Bedside: Negative Progress Note : Progress Note PT VOMITED X 1 ON ARRIVAL, THEN NO OTHER VOMITING CONTINUED TO WANT PAIN MEDICATION THROUGHOUT ER STAY--ADVISED I WOULD NOT BE GIVING NARCOTICS DISCUSSED WITH PT THAT MARIJUANA USE + ALCOHOL USE CAUSE/EXACERBATE THESE SYMPTOMS AND ADVISED HER THAT SHE SHOULD DISCONTINUE BOTH. PT DOES NOT SEEM INTERESTED IN STOPPING EITHER ONE PT ADVISED OF NEED FOR FOLLOW UP WITH HER PCP FOR FURTHER EVALUATION OF THIS CHRONIC PROBLEM Diagnostic Imaging Comments CT ABDOMEN/PELVIS--NO ACUTE PROCESS KUB--NO ACUTE PROCESS PER RADIOLOGIST REPORTS @ 1533 Reviewed: Reviewed by Me Departure Impression Impression: Primary Impression: CHRONIC ABDOMINAL PAIN WITH NAUSEA/VOMITING Additional Impressions: CHRONIC MARIJUANA USE Chronic alcohol abuse Disposition: 01 HOME, SELF-CARE Condition: Improved Departure-Patient Inst. Referrals: [facility] (PCP) Primary Care Physician Patient Instructions: ALCOHOL AND SUBSTANCE ABUSE, Alcohol Abuse and Alcoholism (DC), CHRONIC PAIN, Drug Abuse and Drug Addiction (DC), Marijuana Use and Addiction (DC) Add. Discharge Instructions: CLEAR LIQUIDS--WATER, BROTH, JELLO, GATORADE TOMORROW IF YOU ARE NOT BETTER, ADD BRATS DIET TO CLEAR LIQUIDS--BANANAS, RICE, APPLESAUCE, TOAST, SALTINES FOLLOW UP WITH YOUR DR IN 2-3 DAYS FOR FURTHER CARE All discharge instructions reviewed with patient and/or family. Voiced understanding. Scripts Hyoscyamine Sulfate (Levsin-Sl) 0.125 Mg Tab.subl 1-2 TAB SL Q4H for Abdominal Pain, #15 TAB Prov: ROSA BRADY DO 10/05/17 Pantoprazole Sodium (Protonix) 40 Mg Tablet.dr 40 MG PO DAILY, #15 TAB Prov: ROSA BRADY DO 10/05/17 Sucralfate (Carafate) 1 Gm/10 Ml Oral.susp 1 GM PO QID, #400 ML Prov: ROSA BRADY DO 10/05/17 Ondansetron (Zofran Odt) 8 Mg Tab.rapdis 8 MG PO Q4H for Nausea/Vomiting, #14 TAB Prov: ROSA BRADY DO 10/05/17 Scopolamine (Transderm-Scop) 1 Each Patch.td72 1 EACH TD Q72 HOURS for Dizziness, #3 PATCH Prov: ROSA BRADY DO 10/05/17 ROSA BRADY DO Oct 05, 2017 15:18
--- NOTE | 2017-10-05 15:29 | Diagnostic Imaging Report ---
PROCEDURE: CT urinary tract, rule out kidney stone. TECHNIQUE: Multiple contiguous axial images were obtained through the abdomen and pelvis without the use of intravenous contrast. INDICATION: Back pain. COMPARISON: 08/07/2017. FINDINGS: The lung bases are clear. The heart is normal in size. There is no pericardial effusion. A small hypoattenuating focus is seen in segment 5 of the liver which is too small to characterize. The spleen appears normal. The pancreas appears normal. The adrenal glands are unremarkable. The right kidney demonstrates no hydronephrosis or renal calculi. There is motion artifact present. The left kidney also demonstrates no significant hydronephrosis. No renal calculi are seen. There is a superior left renal cyst which appears stable. The bowel loops are nondistended. There is no evidence of obstruction. The appendix appears normal. No free fluid or free air is seen. There is a moderate amount of stool at the rectum. There is mild wall thickening throughout the colon which may be due to decompression. No acute osseous abnormality is seen. IMPRESSION: 1. Suboptimal evaluation due to motion artifact; however, no renal calculus or hydronephrosis is seen. 2. Mild wall thickening of the colon is thought to be due to decompression and less likely colitis. Dictated by: Dictated on workstation # [id number]
--- NOTE | 2017-10-05 15:29 | Diagnostic Imaging Report ---
INDICATION: Hemoptysis. EXAMINATION: Supine abdomen at 3:35 p.m. FINDINGS: There is some gas in both the large and small bowel in a nonspecific fashion. This appearance is similar to the prior exam of 01/30/2011. There is no evidence for a bowel obstruction. There is no mass or organomegaly identified and there are no pathological calcifications. The previous exam did note that there was an IUD overlying the low pelvis. In the interval since the prior exam, the IUD has been removed. There now appear to be tubal ligation clips on each side of the pelvis. The osseous structures are intact. IMPRESSION: 1. The bowel gas pattern is nonspecific. There is no acute abnormality identified. 2. There are now tubal ligation clips on each side of the pelvis. Dictated by: Dictated on workstation # [id number]
[2017-10-05] MEDS ORDERED: ONDA8TAB9 PO (15:59)
[2017-10-05] MEDS ORDERED: PANT40TA2 PO (15:59)
[2017-10-05] MEDS ORDERED: SCOP1PAT TD (15:59)
[2017-10-05] MEDS ORDERED: HYOS0.1283 SL (15:59)
[2017-10-05] MEDS ORDERED: SUCR1ORA5 PO (15:59)
[2017-10-05] MEDS ORDERED: HYOSCYAMINE 0.125 MG (LEVSIN) TAB PO ONE (16:00)
[2017-10-05] MEDS ORDERED: SCOPOLAMINE 1.5 MG (TRANSDERM-SCOP) PATCH TD ONE (16:00)
[2017-10-05 16:15] VITALS: BP 123/70
--- OUTSIDE RECORDS SUMMARY | 2017-10-06 19:01 | XMS REPORT | Clinical Summary ---
Author Author [facility] Organization [facility] Address Unknown Phone Unavailable Care Team Providers Care Make Up Worker Name Role Phone PCP Unavailable Source Comments Some departments are not documenting in the electronic medical record. If you do not see the information that you expected, contact Release of Information in the Health Information Management department at [phone] for further assistance in locating additional records.[facility] Allergies No Known Allergies Current Medications Prescription [...]
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
== END 2017-10-05 16:15 | disposition home or self-care (01) ==
LOC: EDUNIT# 14:07 → ER 14:08
DX: R10.32 Left lower quadrant pain (principal); G89.29 Other chronic pain; R11.2 Nausea with vomiting, unspecified; F12.10 Cannabis abuse, uncomplicated; F10.10 Alcohol abuse, uncomplicated; F41.9 Anxiety disorder, unspecified; F31.9 Bipolar disorder, unspecified; F14.10 Cocaine abuse, uncomplicated; F17.210 Nicotine dependence, cigarettes, uncomplicated; Z98.51 Tubal ligation status; Z91.5 Personal history of self-harm; Z87.59 Personal history of other complications of pregnancy, childbirth and the puerperium; Z87.19 Personal history of other diseases of the digestive system; Z82.49 Family history of ischemic heart disease and other diseases of the circulatory system
CPT/HCPCS: 36415; 74018; 74176; 80053; 80306; 80320; 81000; 82150; 83690; 83735; 84703; 85007; 85027; 87088; 96374; 96375

== ENCOUNTER 2018-02-28 09:30 | Day surgery (SDC) | payer MEDICAID ==
[~2018-02-28] VITALS: Ht 152.4 cm; Wt 52.4 kg
[2018-02-28 09:30] VITALS: BP 116/90
[~2018-02-28 09:30] MED LIST changes: +HYOS0.1283 SL; +ONDA8TAB9 PO; +PANT40TA2 PO; +SCOP1PAT11 TD; +SUCR1ORA5 PO
[2018-02-28 10:37] LABS: BASOPHILS % (AUTO) 0 % (0-10); EOSINOPHILS # (AUTO) 0.1 10^3/uL (0.0-0.3); EOSINOPHILS % (AUTO) 0 % (0-10); HEMATOCRIT 37 % (35-52); HEMOGLOBIN 12.1 G/DL (11.5-16.0); LYMPHOCYTES # (AUTO) 1.8 X 10^3 (1.0-4.0); LYMPHOCYTES % (AUTO) 13 % (12-44); MEAN CORPUSCULAR HEMOGLOBIN 28 PG (25-34); MEAN CORPUSCULAR HGB CONC 33 G/DL (32-36); MEAN CORPUSCULAR VOLUME 86 FL (80-99); MEAN PLATELET VOLUME 11.1 FL (7.4-10.4); MONOCYTES # (AUTO) 0.9 X 10^3 (0.0-1.0); MONOCYTES % (AUTO) 7 % (0-12); NEUTROPHILS # (AUTO) 11.4 X 10^3 (1.8-7.8); NEUTROPHILS % (AUTO) 80 % (42-75); PLATELET COUNT 292 10^3/uL (130-400); RED BLOOD COUNT 4.26 10^6/uL (4.35-5.85); RED CELL DISTRIBUTION WIDTH 15.4 % (10.0-14.5); WHITE BLOOD COUNT 14.2 10^3/uL (4.3-11.0)
[2018-02-28] MEDS ORDERED: LACTATED RINGERS 1,000 ML IV PRN (10:43)
[2018-02-28] MEDS ORDERED: fentaNYL INJECTION 100 MCG/2 ML AMP IV ONE (10:45)
[2018-02-28] MEDS ORDERED: LEVOFLOXACIN 250 MG/D5W 50 ML (PRE-MIX) IV ONE (10:45)
[2018-02-28] MEDS ORDERED: CATHETER FLUSH 10 ML SYR IV PRN (10:45)
[2018-02-28] MEDS ORDERED: metroNIDAZOLE 500 MG/100 ML IVPB (PRE-MIX) IV ONE (10:45)
[2018-02-28 10:55] LABS: BAND NEUTROPHILS 2 %; LYMPHOCYTES % (MANUAL) 19 %; MONOCYTES % (MANUAL) 9 %; NEUTROPHILS % (MANUAL) 70 %; RBC MORPH NORMAL
[2018-02-28] MEDS ORDERED: proPOfol 200 MG/20 ML (DIPRIVAN) VIAL IV ONE ×2 (11:21→12:28)
[2018-02-28] MEDS ORDERED: fentaNYL INJECTION 100 MCG/2 ML AMP ONE ×2 (11:21→12:47)
[2018-02-28] MEDS ORDERED: LIDOCAINE PF 2% 5 ML (XYLOCAINE) VIAL ONE (11:21)
[2018-02-28] MEDS ORDERED: MIDAZOLAM 2 MG/2 ML (VERSED) VIAL ONE (11:22)
--- NOTE | 2018-02-28 11:56 | Progress Note-Pre Operative ---
Pre-Operative Progress Note H&P Reviewed The H&P was reviewed, patient examined and no changes noted. Date Seen by Provider: Feb 28, 2018 Time Seen by Provider: 11:55 Date H&P Reviewed: Feb 28, 2018 Time H&P Reviewed: 11:55 Pre-Operative Diagnosis: Left labial abscess CASSANDRA GUILLERMO MD Feb 28, 2018 11:56
--- NOTE | 2018-02-28 11:57 | Progress Note-Post Operative ---
Post-Operative Progess Note Surgeon (s)/Municipal Maintenance Worker (s) Surgeon CASSANDRA GUILLERMO MD Municipal Maintenance Worker: none Pre-Operative Diagnosis Left labial abscess Post-Operative Diagnosis Same with pathology pending Procedure & Operative Findings Date of Procedure 02/28/18 Procedure Performed/Findings Marsupialization left labial abscess Anesthesia Type GETA Estimated Blood Loss Estimated blood loss (mL): Minimal Specimens/Packing Specimens Removed Culture abscess cavity Packing: None CASSANDRA GUILLERMO MD Feb 28, 2018 11:56
[2018-02-28] MEDS ORDERED: BENZOCAINE/MENTHOL (DERMOPLAST) 56 ML CAN TP PRN (12:00)
[2018-02-28] MEDS ORDERED: BUTORPHANOL INJ 2 MG/ML (STADOL) VIAL IV PRN (12:00)
[2018-02-28] MEDS ORDERED: KETOROLAC 30 MG/ML VIAL IVP SCH (12:00)
[2018-02-28] MEDS ORDERED: ONDANSETRON 4 MG/2 ML (SDV) Z0FRAN IVP PRN ×2 (12:00→13:15)
[2018-02-28] MEDS ORDERED: ROCURONIUM 10 MG/ML 5 ML SYRINGE IV ONE (12:03)
[2018-02-28] MEDS ORDERED: CIPR-225 PO (12:05)
[2018-02-28] MEDS ORDERED: OXYC-197 PO (12:05)
[2018-02-28] MEDS ORDERED: METR500T PO (12:05)
[2018-02-28] MEDS ORDERED: IBUP-1780 PO (12:05)
[2018-02-28] MEDS ORDERED: SCOPOLAMINE 1.5 MG (TRANSDERM-SCOP) PATCH ONE (12:06)
--- NOTE | 2018-02-28 12:07 | Discharge Instructions ---
Discharge Instructions Discharge Medications New, Converted or Re-Newed RX: RX on Chart Patient Instructions Patient Instructions: As directed Return to The Hospital For: As directed Activity & Diet Discharge Diet: No Restrictions Activity as Tolerated: No Orders-Post D/C & Referrals Follow Up Appt: Call to make follow up appt. for patient in 1 weeks. Activity: Rest for 24 hours, than as tolerated. Please call in RX to patient pharmacy. Diet: As tolerated-Clear Liquids only if nauseated. May shower or tub bathe as desired. No driving for 24 hours, no alcoholic beverages for 24 hours, and nothing per vagina (no tampons, douching, or intercourse) for 2 weeks. Patient to return to the clinic as soon as possible for: Temperature greater than 101F, Severe Pain, Foul discharge from incision or vagina, Excessive Bleeding (more than a period). CASSANDRA GUILLERMO MD Feb 28, 2018 12:07
[2018-02-28] MEDS ORDERED: SUCCINYLCHOLINE INJ 100 MG/5 ML SYR ONE (12:28)
[2018-02-28] MEDS ORDERED: SEVOFLURANE (ULTANE) 15 ML INHAL SOLN ONE ×2 (12:46→12:47)
[2018-02-28] MEDS ORDERED: ESMOLOL 100 MG/10 ML (BREVIBLOC) VIAL ONE (12:48)
[2018-02-28] MEDS ORDERED: HYDROmorphone 1 MG/ML (DILAUDID) 1 ML SYRINGE ONE (13:05)
[2018-02-28] MEDS ORDERED: HYDROmorphone 1 MG/ML (DILAUDID) 1 ML SYRINGE IV PRN (13:15)
[2018-02-28] MEDS ORDERED: PROMETHAZINE INJ 25 MG/ML (PHENERGAN) AMP IVP PRN (13:15)
[2018-02-28] MEDS ORDERED: morphine INJ 10 MG/ML 1ML (SYR OR VIAL) IVP PRN (13:15)
--- NOTE | 2018-02-28 13:32 | Anesthesia-General Post-Op ---
General Patient Condition Mental Status/LOC: Same as Preop Cardiovascular: Satisfactory Nausea/Vomiting: Absent Respiratory: Satisfactory Pain: Controlled Complications: Absent Post Op Complications Complications None Follow Up Care/Instructions Patient Instructions None needed. Anesthesia/Patient Condition Patient Condition Patient is doing well, no complaints, stable vital signs, no apparent adverse anesthesia problems. No complications reported per nursing. D/C home per [facility] Criteria: No EREN DE LA O CRNA Feb 28, 2018 13:32
[2018-02-28] MEDS: oxyCODONE/APAP 5/325MG (PERCOCET 5) TABLET PO PRN ×3 (15:33→23:43)
[2018-02-28] MEDS: D5 LR IV SOLUTION 1,000 ML IV SCH ×2 (15:34→23:44)
[2018-02-28] MEDS ORDERED: DEXAMETHASONE 10 MG/ML (DECADRON) 1 ML VIAL ONE (17:22)
[2018-02-28] MEDS ORDERED: ONDANSETRON 4 MG/2 ML (SDV) Z0FRAN ONE (17:22)
[2018-02-28 19:51] VITALS: BP 133/86
--- NOTE | 2018-02-28 20:01 | OPERATIVE REPORT ---
DATE OF SERVICE: 02/28/2018 PREOPERATIVE DIAGNOSIS: Left labial abscess. POSTOPERATIVE DIAGNOSIS: Left labial abscess. OPERATIVE PROCEDURE: Marsupialization of left labial abscess. OPERATIVE DESCRIPTION: With the patient in supine position under satisfactory general anesthesia, she was repositioned in the dorsal lithotomy position in the Dennis stirrups and prepped and draped in the usual fashion for vaginal surgery. The patient's entire left labia majora was swollen and edematous. The inferior half of the majora was indurated and there was a fluctuant mass occupying the inferior margin, inferior third of the labia majora. Ultrasound demonstrated an abscess cavity multiloculated in this area. Ultrasound did not show any particular fluid collections in the upper labia; however, this area was aspirated with a 19 gauge syringe to ensure that no abscess pocket was missed. With confirmation that the upper half of the left labia majora was just edematous, the procedure continued with marsupialization of this abscess cavity. Sutures of 3-0 Vicryl Rapide were placed into and out of the abscess cavity using as a reference point at the vaginal introitus just distal to the hymenal ring on the left. Both sutures were placed anterior to posterior and then held under tension, so the incision was made between the sutures. The midportion of each suture was brought out through the incision. The suture was cut and tagged, each suture for the four cardinal locations was held long for tying later. The abscess cavity was cultured for aerobes and anaerobes and then copiously irrigated. Suture of 3-0 Vicryl Rapide was then used to attach the abscess cavity epithelium to the skin between each of the cardinal sutures and then each of the cardinal sutures of silk were tied, all the sutures were cut short. The abscess cavity was irrigated and aspirated a final time. There was no significant bleeding at this point. Estimated blood loss was minimal. Probably 20 mL of purulent drainage had been obtained on opening the abscess cavity. Sponge and needle counts were correct. Estimated blood loss again was minimal. The patient tolerated the procedure well and was uneventfully awakened from her general anesthesia and transferred to the recovery room in stable condition with plans for 23-hour observation. . The patient tolerated the procedure well. Job ID: [id number] DocumentID: [id number] Dictated Date: 02/28/2018 12:42:15 Head Of English Date: 02/28/2018 20:00:17 Dictated By: CASSANDRA GUILLERMO MD MTDD
[2018-02-28] MEDS: metroNIDAZOLE 500 MG (FLAGYL) TAB PO SCH (21:06)
[2018-02-28] MEDS: CIPROFLOXACIN 500 MG (CIPRO) TABLET PO SCH (21:06)
[2018-02-28] MEDS: KETOROLAC 30 MG/ML VIAL IVP SCH (21:08)
[2018-03-01] VITALS: BP 133/79
[2018-03-01] MEDS: oxyCODONE/APAP 5/325MG (PERCOCET 5) TABLET PO PRN ×3 (01:05→12:02)
[2018-03-01] MEDS: KETOROLAC 30 MG/ML VIAL IVP SCH ×2 (03:20→09:01)
[2018-03-01 04:00] VITALS: BP 114/77
[2018-03-01] MEDS: D5 LR IV SOLUTION 1,000 ML IV SCH (04:46)
--- NOTE | 2018-03-01 07:31 | Progress Note-Standard ---
Standard Progress Note Progress Notes/Assess & Plan Date Seen by Provider: Mar 01, 2018 Time Seen by Provider: 07:30 Progress/Assessment & Plan Patient is without complaint. Her pain is quite tolerable after surgery. She is ambulating, voiding, tolerating by mouth well, and is ready for discharge home Vital Signs Date Time Temp Pulse Resp B/P (MAP) Pulse Ox O2 Delivery O2 Flow Rate FiO2 03/01/18 04:00 98.4 78 16 114/77 (89) 100 Room Air 03/01/18 00:00 97.4 79 18 133/79 (97) 100 Room Air 02/28/18 21:00 Room Air 02/28/18 19:51 98.5 75 16 133/86 (102) 98 Room Air 02/28/18 13:50 100 Room Air 02/28/18 09:30 98.9 86 16 116/90 (99) 100 Room Air I & O 03/01/18 07:00 Intake Total 1750 ml Output Total 1350 ml Balance 400 ml Vital signs are stable. Patient afebrile. Abdomen is benign. Extreme show no clubbing or cyanosis. There is no Homans sign. Assessment and plan postoperative day number 1 status post marsupialization of the left labial abscess. Patient doing well be discharged home with follow- up in clinic Final Diagnosis Left labial abscess CASSANDRA GUILLERMO MD Mar 01, 2018 7:31 am
--- NOTE | 2018-03-01 07:41 | Anesthesia-General Post-Op ---
General Patient Condition Mental Status/LOC: Same as Preop Cardiovascular: Satisfactory Nausea/Vomiting: Absent Respiratory: Satisfactory Pain: Controlled Complications: Absent Post Op Complications Complications None Follow Up Care/Instructions Patient Instructions None needed. Anesthesia/Patient Condition Patient Condition Patient is doing well, no complaints, stable vital signs, no apparent adverse anesthesia problems. No complications reported per nursing. D/C home per [facility] Criteria: SÁNCHEZ Alvarado CRNA Mar 01, 2018 07:40
[2018-03-01 08:30] VITALS: BP 131/84
[2018-03-01] MEDS ORDERED: DOCUSATE SODIUM 100 MG (COLACE) CAP PO SCH (09:00)
[2018-03-01] MEDS: CIPROFLOXACIN 500 MG (CIPRO) TABLET PO SCH (09:01)
[2018-03-01] MEDS: metroNIDAZOLE 500 MG (FLAGYL) TAB PO SCH (09:02)
[2018-03-01] MEDS ORDERED: IBUPROFEN 800 MG (MOTRIN) TAB PO SCH (12:00)
[2018-03-01 13:04] VITALS: BP 131/84
== END 2018-03-01 13:11 | disposition home or self-care (01) ==
LOC: SDC 09:30 → 4TH 14:31 → SDC 03-01 13:11
PROVIDERS: ATTEND Obstetrics & Gynecology
DX: N76.4 Abscess of vulva (principal); Z87.891 Personal history of nicotine dependence
CPT/HCPCS: 36415; 84703; 85007; 85027; 87070; 87075; 87081; 87205; 94664

== ENCOUNTER 2018-03-23 12:49 | Emergency (ER) | payer MEDICAID ==
[~2018-03-23] VITALS: Ht 152.4 cm; Wt 54.2 kg
[~2018-03-23 12:49] MED LIST changes: +IBUP-1780 PO; +OXYC-197 PO
[2018-03-23] MEDS ORDERED: NS IV 1000 ML 1,000 ML IV ONE (13:09)
[2018-03-23] MEDS ORDERED: fentaNYL INJECTION 100 MCG/2 ML AMP IVP STA (13:09)
[2018-03-23] MEDS ORDERED: ONDANSETRON 4 MG/2 ML (SDV) Z0FRAN IVP ONE (13:15)
[2018-03-23] MEDS ORDERED: KETAMINE HCL 100 MG/ML 5 ML VIAL IV ONE (13:15)
[2018-03-23 13:19] LABS: BASOPHILS % (AUTO) 0 % (0-10); EOSINOPHILS % (AUTO) 0 % (0-10); HEMATOCRIT 35 % (35-52); HEMOGLOBIN 11.8 G/DL (11.5-16.0); LYMPHOCYTES # (AUTO) 1.5 X 10^3 (1.0-4.0); LYMPHOCYTES % (AUTO) 9 % (12-44); MEAN CORPUSCULAR HEMOGLOBIN 29 PG (25-34); MEAN CORPUSCULAR HGB CONC 34 G/DL (32-36); MEAN CORPUSCULAR VOLUME 84 FL (80-99); MEAN PLATELET VOLUME 11.4 FL (7.4-10.4); MONOCYTES # (AUTO) 0.6 X 10^3 (0.0-1.0); MONOCYTES % (AUTO) 3 % (0-12); NEUTROPHILS # (AUTO) 14.2 X 10^3 (1.8-7.8); NEUTROPHILS % (AUTO) 87 % (42-75); PLATELET COUNT 312 10^3/uL (130-400); RED BLOOD COUNT 4.14 10^6/uL (4.35-5.85); RED CELL DISTRIBUTION WIDTH 16.1 % (10.0-14.5); WHITE BLOOD COUNT 16.3 10^3/uL (4.3-11.0)
--- NOTE | 2018-03-23 13:34 | ED Abdominal Pain ---
General Chief Complaint: Abdominal/GI Problems Stated Complaint: ABD PAIN,VOMITING Nursing Triage Note: PT STATES ABD PAIN SINCE YESTERDAY, MOANING, CRYING, AND VOMITING AT TRIAGE. Sepsis Screen: No Definite Risk Source of Information: Patient Exam Limitations: No Limitations History of Present Illness Date Seen by Provider: Mar 23, 2018 Time Seen by Provider: 13:05 Initial Comments Here with report of severe abdominal pain started yesterday. Arrives moaning, crying and vomiting. States that she has vomited multiple times. Does have history of pancreatitis but that usually associated with alcohol intoxication or consumption. She states that she has not taken alcohol for some time. She is currently on Flagyl for postoperative procedure for Bartholin gland cyst. States pain is severe. Does admit to using marijuana daily but usually once a day. Denies other drug use or abuse. She states warm showers to help with her pain. Timing/Duration: 24 Hours Severity/Quality: Moderate, Severe Location: Generalized Abdomen Activities at Onset: Emotional Stress Modifying Factors: Worsens With Eating, Worsens With Movement, Worsens With Resting Associated Symptoms: No Back Pain, No Fever/Chills; Nausea/Vomiting; No Swelling/Mass in Abdomen, No Weakness Allergies and Home Medications Allergies Coded Allergies: No Known Drug Allergies (Verified , 12/31/16) Home Medications Ciprofloxacin HCl 500 Mg Tablet, 500 MG PO BID Prescribed by: CASSANDRA SANDOVAL on 02/28/18 1205 Ibuprofen 800 Mg Tablet, 800 MG PO Q6H PRN for PAIN Prescribed by: CASSANDRA SANDOVAL on 02/28/18 1205 Metronidazole 500 Mg Tablet, 500 MG PO BID Prescribed by: CASSANDRA SANDOVAL on 02/28/18 1205 Oxycodone HCl/Acetaminophen 1 Each Tablet, 1-2 EACH PO Q4H Prescribed by: CASSANDRA SANDOVAL on 02/28/18 1205 Patient Home Medication List Home Medication List Reviewed: Yes Review of Systems Constitutional: see HPI; No chills, No fever EENTM: No Symptoms Reported Respiratory: No Symptoms Reported Cardiovascular: No Symptoms Reported Gastrointestinal: Abdominal Pain; Denies Diarrhea; Nausea; Denies Rectal Bleeding; Vomiting Genitourinary: No Symptoms Reported Musculoskeletal: No back pain; muscle pain; No neck pain Skin: no symptoms reported Psychiatric/Neurological: No Symptoms Reported All Other Systems Reviewed Negative Unless Noted: Yes Past Kpgogws-Bmxmpr-Vyouzg Hx Past Med/Social Hx: Reviewed Nursing Past Med/Soc Hx Patient Social History Alcohol Use: Past History Alcohol Beverage of Choice: Cheap Liquor Recreational Drug Use: Yes Drug of Choice: THC, DAILY USE, DENIES OTHER DRUG USE Smoking Status: Former Smoker Type Used: Cigarettes Former Smoker, Quit: February 14, 2018 Recent Foreign Travel: No Contact w/Someone Who Travel: No Recent Infectious Disease Expo: No Recent Hopitalizations: No Immunizations Up To Date Tetanus Booster (TDap): More than 5yrs Seasonal Allergies Seasonal Allergies: Yes Past Medical History Surgeries: Yes Section, Tubal Ligation Respiratory: No Cardiac: No Neurological: No Reproductive Disorders: Yes (BARTHOLIN'S ABSCESSES) Female Reproductive Disorders: Denies 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 Sexually Transmitted Disease: Yes (CHLAMYDIA) HIV/AIDS: No Genitourinary: No Gastrointestinal: Yes (FREQUENT VISITS FOR NAUSEA/VOMITING/ABDOMINAL PAIN ; ALCOHOLIC GASTRITIS) Pancreatitis Musculoskeletal: No Endocrine: No HEENT: No Loss of Vision: Denies Hearing Impairment: Denies Cancer: No Psychosocial: Yes (OVERDOSE 2006) Anxiety, Suicide Attempts, Bipolar, Depression Integumentary: No Blood Disorders: No Family Medical History Reviewed Nursing Family Hx Congestive heart failure G8 SISTER Family history: Diabetes mellitus G8 SISTER History of - anemia 19 MOTHER G8 SISTER History of - disorder G8 SISTER (MS) No Family History of: Abdominal aortic aneurysm Alcoholism Cancer Dementia Family history: Alzheimer's disease Family history: Arthritis Family history: Asthma Family history: Breast disease Family history: Cardiovascular disease Family history: Gastrointestinal disease Family history: Hypertension Family history: Thyroid disorder Hereditary disease History of - respiratory disease Kidney disease Myocardial infarction Parkinson's disease Prostate cancer Psychotic disorder Seizure disorder Stroke No Pertinent Family Hx Physical Exam Vital Signs Vital Signs - First Documented 03/23/18 13:08 Temp 96.0 Pulse 71 Resp 22 B/P (MAP) 121/91 (101) Pulse Ox 100 O2 Delivery Room Air Capillary Refill : Less Than 3 Seconds General Appearance: WD/WN, no apparent distress HEENT: PERRL/EOMI, pharynx normal Neck: full range of motion, supple Respiratory: lungs clear, normal breath sounds Cardiovascular: regular rate, rhythm, no murmur Peripheral Pulses: 2+ Dorsalis Pedis (R), 2+ Left Dors-Pedis (L), 2+ Radial Pulses (R), 2+ Radial Pulses (L) Gastrointestinal: normal bowel sounds, soft, tenderness (diffuse but greatest in the lower quadrants bilateral) Extremities: non-tender, normal inspection Back: normal inspection, no CVA tenderness, no vertebral tenderness Neurologic/Psychiatric: alert, oriented x 3 Skin: normal color, warm/dry Progress/Results/Core Measures Results/Orders Lab Results Laboratory Tests Test 03/23/18 13:10 03/23/18 14:10 Range/Units White Blood Count 16.3 H 4.3-11.0 10^3/uL Red Blood Count 4.14 L 4.35-5.85 10^6/uL Hemoglobin 11.8 11.5-16.0 G/DL Hematocrit 35 35-52 % Mean Corpuscular Volume 84 80-99 FL Mean Corpuscular Hemoglobin 29 25-34 PG Mean Corpuscular Hemoglobin Concent 34 32-36 G/DL Red Cell Distribution Width 16.1 H 10.0-14.5 % Platelet Count 312 130-400 10^3/uL Mean Platelet Volume 11.4 H 7.4-10.4 FL Neutrophils (%) (Auto) 87 H 42-75 % Lymphocytes (%) (Auto) 9 L 12-44 % Monocytes (%) (Auto) 3 0-12 % Eosinophils (%) (Auto) 0 0-10 % Basophils (%) (Auto) 0 0-10 % Neutrophils # (Auto) 14.2 H 1.8-7.8 X 10^3 Lymphocytes # (Auto) 1.5 1.0-4.0 X 10^3 Monocytes # (Auto) 0.6 0.0-1.0 X 10^3 Eosinophils # (Auto) 0.0 0.0-0.3 10^3/uL Basophils # (Auto) 0.0 0.0-0.1 10^3/uL Neutrophils % (Manual) 93 % Lymphocytes % (Manual) 6 % Monocytes % (Manual) 0 % Eosinophils % (Manual) 0 % Basophils % (Manual) 0 % Band Neutrophils 1 % Anisocytosis SLIGHT Sodium Level 143 135-145 MMOL/L Potassium Level 3.7 3.6-5.0 MMOL/L Chloride Level 114 H 98-107 MMOL/L Carbon Dioxide Level 14 L 21-32 MMOL/L Anion Gap 15 H 5-14 MMOL/L Blood Urea Nitrogen 9 7-18 MG/DL Creatinine 0.73 0.60-1.30 MG/DL Estimat Glomerular Filtration Rate > 60 BUN/Creatinine Ratio 12 Glucose Level 135 H 70-105 MG/DL Calcium Level 9.4 8.5-10.1 MG/DL Total Bilirubin 0.2 0.1-1.0 MG/DL Aspartate Amino Transf (AST/SGOT) 26 5-34 U/L Alanine Aminotransferase (ALT/SGPT) 17 0-55 U/L Alkaline Phosphatase 79 40-136 U/L Total Protein 8.0 6.4-8.2 GM/DL Albumin 4.7 H 3.2-4.5 GM/DL Amylase Level 49 25-125 U/L Lipase 5 L 8-78 U/L Urine Color YELLOW Urine Clarity CLEAR Urine pH 6.5 5-9 Urine Specific [place] 1.020 1.016-1.022 Urine Protein 3+ H NEGATIVE Urine Glucose (UA) NEGATIVE NEGATIVE Urine Ketones 3+ H NEGATIVE Urine Nitrite POSITIVE H NEGATIVE Urine Bilirubin NEGATIVE NEGATIVE Urine Urobilinogen NORMAL NORMAL MG/DL Urine Leukocyte Esterase 2+ H NEGATIVE Urine RBC (Auto) 3+ H NEGATIVE Urine RBC 2-5 H /HPF Urine WBC 0-2 /HPF Urine Squamous Epithelial Cells 2-5 /HPF Urine Crystals NONE /LPF Urine Bacteria TRACE /HPF Urine Casts NONE /LPF Urine Mucus SMALL H /LPF Urine Culture Indicated YES Urine Opiates Screen NEGATIVE NEGATIVE Urine Oxycodone Screen NEGATIVE NEGATIVE Urine Methadone Screen NEGATIVE NEGATIVE Urine Propoxyphene Screen NEGATIVE NEGATIVE Urine Barbiturates Screen NEGATIVE NEGATIVE Ur Tricyclic Antidepressants Screen NEGATIVE NEGATIVE Urine Phencyclidine Screen NEGATIVE NEGATIVE Urine Amphetamines Screen NEGATIVE NEGATIVE Urine Methamphetamines Screen NEGATIVE NEGATIVE Urine Benzodiazepines Screen NEGATIVE NEGATIVE Urine Cocaine Screen NEGATIVE NEGATIVE Urine Cannabinoids Screen POSITIVE H NEGATIVE My Orders Orders - JAYSON NASH MD Amylase (03/23/18 13:09) Cbc With Automated Diff (03/23/18 13:09) Comprehensive Metabolic Panel (03/23/18 13:09) Drug Screen Stat (Urine) (03/23/18 13:09) Lipase (03/23/18 13:09) Ua Culture If Indicated (03/23/18 13:09) Saline Lock/Iv-Start (03/23/18 13:09) Ns Iv 1000 Ml (Sodium Chloride 0.9%) (03/23/18 13:09) Ondansetron Injection (Zofran Injectio (03/23/18 13:15) Fentanyl Injection (Sublimaze Injection (03/23/18 13:09) Ketamine Injection (Ketalar Injection) (03/23/18 13:15) Manual Differential (03/23/18 13:10) Haloperidol Injection (Haldol Injectio (03/23/18 14:15) Urine Culture (03/23/18 14:10) Ceftriaxone Injection (Rocephin Injectio (03/23/18 15:00) Medications Given in ED Current Medications Medications Dose Ordered Sig/Deniz Route Start Time Stop Time Status Last Admin Dose Admin Ceftriaxone Sodium 1000 mg/ Sodium Chloride 50 ml @ 100 mls/hr ONCE ONCE IV 03/23/18 15:00 03/23/18 15:29 DC 03/23/18 14:54 100 MLS/HR Haloperidol Lactate 5 mg ONCE ONCE IV 03/23/18 14:15 03/23/18 14:16 DC 03/23/18 14:19 5 MG Ketamine HCl 10 mg ONCE ONCE IV 03/23/18 13:15 03/23/18 13:16 DC 03/23/18 13:22 10 MG Ondansetron HCl 4 mg ONCE ONCE IVP 03/23/18 13:15 03/23/18 13:16 DC 03/23/18 13:22 4 MG Sodium Chloride 1,000 ml @ 0 mls/hr Q0M ONCE IV 03/23/18 13:09 03/23/18 13:12 DC 03/23/18 13:22 1,000 MLS/HR Vital Signs/I&O 03/23/18 03/23/18 13:08 13:22 Temp 96.0 96.0 Pulse 71 Resp 22 B/P (MAP) 121/91 (101) Pulse Ox 100 O2 Delivery Room Air Blood Pressure Mean: 101 Progress Progress Note : Progress Note Seen and evaluated the patient. IV, labs, UA, UDS, normal saline 1 L bolus. Zofran 4 mg IV and fentanyl 50 g IV ordered. We also did give ketamine 10 mg slow IV push. Excellent pain relief was achieved after ketamine. I did discuss with the patient the need for refrain from marijuana as I do have concerns that this is THC associated cyclic vomiting syndrome. Patient verbalize understanding. Monitor patient. 1415: Pain returning. Haldol 5 mg IV given. This did markedly improve her pain. 1500 UTI noted. Rocephin 1 g IV given. 1530: Pain remains improved. Discharged home with return precautions. Patient verbalize understanding instructions and agreement with plan. Departure Impression Primary Impression: Urinary tract infection Qualified Codes: N30.00 - Acute cystitis without hematuria Additional Impressions: Marijuana abuse, continuous Cyclic vomiting syndrome Qualified Codes: G43.A0 - Cyclical vomiting, not intractable Disposition: HOME, SELF-CARE Condition: Improved Departure-Patient Inst. Decision time for Depature: 15:45 Referrals: [facility] (PCP/Family) Primary Care Physician Patient Instructions: Marijuana, Nausea and Vomiting, Adult (DC) Add. Discharge Instructions: All discharge instructions reviewed with patient and/or family. Voiced understanding. Take medications as prescribed. Follow-up with your Dr. in a few days for recheck. Drink plenty of fluids. You should stop use of marijuana as a bleed this is causing and worsening your pain. Drink plenty of fluids. You may take Tylenol 650 mg every 6 hours as needed for pain. You may take ibuprofen 600 mg every 8 hours as needed for pain. Return for worse pain, fever, vomiting, weakness, breathing problems or the other concerns as needed. Scripts Ondansetron (Ondansetron Odt) 4 Mg Tab.rapdis 4 MG PO Q6H PRN for NAUSEA/VOMITING, #8 TAB 0 Refills Prov: JAYSON NASH MD 03/23/18 Cephalexin (Cephalexin) 500 Mg Tablet 500 MG PO BID, #12 TAB 0 Refills Prov: JAYSON NASH MD 03/23/18 JAYSON NASH MD Mar 23, 2018 13:34
[2018-03-23 13:39] LABS: ALANINE AMINOTRANSFERASE 17 U/L (0-55); ALBUMIN 4.7 GM/DL (3.2-4.5); ALKALINE PHOSPHATASE 79 U/L (40-136); AMYLASE 49 U/L (25-125); BILIRUBIN,TOTAL 0.2 MG/DL (0.1-1.0); BUN/CREATININE RATIO 12; CALCIUM 9.4 MG/DL (8.5-10.1); CARBON DIOXIDE 14 MMOL/L (21-32); CHLORIDE 114 MMOL/L (98-107); CREATININE SERUM 0.73 MG/DL (0.60-1.30); GFR ESTIMATED > 60; GLUCOSE 135 MG/DL (70-105); LIPASE 5 U/L (8-78); POTASSIUM 3.7 MMOL/L (3.6-5.0); SODIUM 143 MMOL/L (135-145)
[2018-03-23 13:40] LABS: ANISOCYTOSIS SLIGHT; BAND NEUTROPHILS 1 %; BASOPHILS % (MANUAL) 0 %; EOSINOPHILS % (MANUAL) 0 %; LYMPHOCYTES % (MANUAL) 6 %; MONOCYTES % (MANUAL) 0 %; NEUTROPHILS % (MANUAL) 93 %
[2018-03-23] MEDS ORDERED: HALOPERIDOL 5 MG/ML (HALDOL) AMP IV ONE (14:15)
[2018-03-23 14:18] LABS: BILIRUBIN,URINE NEGATIVE (NEGATIVE); CLARITY,URINE CLEAR; COLOR,URINE YELLOW; GLUCOSE, URINE (UA) NEGATIVE (NEGATIVE); KETONES,URINE 3+ (NEGATIVE); LEUKOCYTE ESTERASE ,URINE 2+ (NEGATIVE); NITRITE,URINE POSITIVE (NEGATIVE); PH,URINE 6.5 (5-9); PROTEIN,URINE 3+ (NEGATIVE); UROBILINOGEN,URINE NORMAL (NORMAL)
[2018-03-23 14:27] LABS: BACTERIA,URINE TRACE /HPF; WBC,URINE 0-2 /HPF
[2018-03-23 14:33] LABS: AMPHETAMINE SCREEN, URINE NEGATIVE (NEGATIVE); BARBITURATE SCREEN URINE NEGATIVE (NEGATIVE); BENZODIAZEPINES SCREEN URINE NEGATIVE (NEGATIVE); CANNABINOID SCREEN, URINE POSITIVE (NEGATIVE); COCAINE SCREEN URINE NEGATIVE (NEGATIVE); METHADONE STAT NEGATIVE (NEGATIVE); METHAMPHETAMINE SCREEN URINE S NEGATIVE (NEGATIVE); OPIATE SCREEN URINE NEGATIVE (NEGATIVE); OXYCODONE STAT NEGATIVE (NEGATIVE); PROPOXYPHENE STAT NEGATIVE (NEGATIVE); TRICYCLIC ANTIDEPRESSANTS SCRE NEGATIVE (NEGATIVE)
[2018-03-23] MEDS ORDERED: cefTRIAXone INJECTION 1,000 MG in NS (IVPB) 50 ML IV ONE (15:00)
[2018-03-23] MEDS ORDERED: CEPH500T PO (15:47)
[2018-03-23] MEDS ORDERED: ONDA4TAB11 PO (15:47)
[2018-03-23 16:13] VITALS: BP 93/47
== END 2018-03-23 16:13 | disposition home or self-care (01) ==
LOC: EDUNIT# 12:49 → ER 12:51
DX: N39.0 Urinary tract infection, site not specified (principal); F12.129 Cannabis abuse with intoxication, unspecified; K31.89 Other diseases of stomach and duodenum; R11.10 Vomiting, unspecified; F41.9 Anxiety disorder, unspecified; F31.9 Bipolar disorder, unspecified; Z87.19 Personal history of other diseases of the digestive system; Z98.51 Tubal ligation status; Z87.59 Personal history of other complications of pregnancy, childbirth and the puerperium; Z87.891 Personal history of nicotine dependence; Z98.890 Other specified postprocedural states
CPT/HCPCS: 36415; 80053; 80306; 81000; 82150; 83690; 85007; 85027; 87088; 96361; 96365; 96375

== ENCOUNTER 2018-03-31 06:07 | Emergency (ER) | payer MEDICAID ==
[~2018-03-31] VITALS: Ht 152.4 cm; Wt 54.2 kg
[~2018-03-31 06:07] MED LIST changes: +ONDA4TAB11 PO
[2018-03-31] MEDS ORDERED: NS IV 1000 ML 1,000 ML IV ONE (06:13)
[2018-03-31] MEDS ORDERED: PROMETHAZINE INJ 25 MG/ML (PHENERGAN) AMP IVP STA (06:13)
[2018-03-31] MEDS ORDERED: HALOPERIDOL 5 MG/ML (HALDOL) AMP IV ONE (06:15)
--- NOTE | 2018-03-31 06:41 | ED Abdominal Pain ---
General Chief Complaint: Abdominal/GI Problems Stated Complaint: N/V Nursing Triage Note: ABDOMINAL PAIN/N/V Sepsis Screen: No Definite Risk Source of Information: Patient Exam Limitations: No Limitations History of Present Illness Date Seen by Provider: Mar 31, 2018 Time Seen by Provider: 06:10 Initial Comments Here with report of severe abdominal pain that is diffuse. Has history of episodes similar. Seen recently for the same. Typically associated with cannabis use. I did discuss this with her at length on previous visit and she had stopped smoking marijuana. Last night she smokes marijuana again and then later started having the severe abdominal cramping and pain. Denies blood in her vomit or stool. Denies fever or chills. Denies recent injury. Timing/Duration: 4-6 Hours Severity/Quality: Moderate, Severe, Aching, Cramping Location: Generalized Abdomen Activities at Onset: Other (marijuana use) Modifying Factors: Worsens With Eating Associated Symptoms: No Back Pain, No Chest Pain, No Fever/Chills; Nausea/ Vomiting; No Shortness of Air, No Weakness Allergies and Home Medications Allergies Coded Allergies: No Known Drug Allergies (Verified , 12/31/16) Home Medications Cephalexin 500 Mg Tablet, 500 MG PO BID Prescribed by: JAYSON NASH on 03/23/18 1547 Ciprofloxacin HCl 500 Mg Tablet, 500 MG PO BID Prescribed by: CASSANDRA SANDOVAL on 02/28/18 1205 Ibuprofen 800 Mg Tablet, 800 MG PO Q6H PRN for PAIN Prescribed by: CASSANDRA SANDOVAL on 02/28/18 1205 Metronidazole 500 Mg Tablet, 500 MG PO BID Prescribed by: CASSANDRA SANDOVAL on 02/28/18 1205 Ondansetron 4 Mg Tab.rapdis, 4 MG PO Q6H PRN for NAUSEA/VOMITING Prescribed by: JAYSON NASH on 03/23/18 1547 Oxycodone HCl/Acetaminophen 1 Each Tablet, 1-2 EACH PO Q4H Prescribed by: CASSANDRA SANDOVAL on 02/28/18 1205 Patient Home Medication List Home Medication List Reviewed: Yes Review of Systems Constitutional: see HPI; No chills, No fever EENTM: No Symptoms Reported Respiratory: No Symptoms Reported Cardiovascular: No Symptoms Reported Gastrointestinal: See HPI, Abdominal Pain, Nausea; Denies Rectal Bleeding; Vomiting Genitourinary: No Symptoms Reported Musculoskeletal: No back pain; muscle pain, muscle cramps Skin: no symptoms reported Psychiatric/Neurological: Anxiety; Denies Weakness Endocrine: No Symptoms Reported All Other Systems Reviewed Negative Unless Noted: Yes Past Iuclekr-Kftfjw-Lmktdv Hx Past Med/Social Hx: Reviewed Nursing Past Med/Soc Hx Patient Social History Alcohol Use: Occasionally Uses Number of Drinks Today: CC Alcohol Beverage of Choice: Cheap Liquor Recreational Drug Use: Yes Drug of Choice: CANNIBUS Smoking Status: Current Everyday Smoker Type Used: Cigarettes Former Smoker, Quit: February 14, 2018 Recent Foreign Travel: No Contact w/Someone Who Travel: No Recent Infectious Disease Expo: No Recent Hopitalizations: No Immunizations Up To Date Tetanus Booster (TDap): More than 5yrs Seasonal Allergies Seasonal Allergies: Yes Past Medical History Surgeries: Yes (I&D x3 of Bartholin cyct in GENITAL AREA, c/s x3, bartholin gland removal) Section, Tubal Ligation Respiratory: No Cardiac: No Neurological: No : No Reproductive Disorders: Yes (BARTHOLIN'S ABSCESSES) Female 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 Sexually Transmitted Disease: Yes (CHLAMYDIA) HIV/AIDS: No Genitourinary: No Gastrointestinal: Yes Pancreatitis Musculoskeletal: No Endocrine: No HEENT: No Loss of Vision: Denies Hearing Impairment: Denies Cancer: No Psychosocial: Yes (OVERDOSE 2006) Anxiety, Suicide Attempts, Bipolar, Depression Integumentary: No Blood Disorders: No Family Medical History Reviewed Nursing Family Hx Congestive heart failure G8 SISTER Family history: Diabetes mellitus G8 SISTER History of - anemia 19 MOTHER G8 SISTER History of - disorder G8 SISTER (MS) No Family History of: Abdominal aortic aneurysm Alcoholism Cancer Dementia Family history: Alzheimer's disease Family history: Arthritis Family history: Asthma Family history: Breast disease Family history: Cardiovascular disease Family history: Gastrointestinal disease Family history: Hypertension Family history: Thyroid disorder Hereditary disease History of - respiratory disease Kidney disease Myocardial infarction Parkinson's disease Prostate cancer Psychotic disorder Seizure disorder Stroke No Pertinent Family Hx Physical Exam Vital Signs Vital Signs - First Documented 03/31/18 03/31/18 06:19 08:10 Temp 96.5 Pulse 75 Resp 20 B/P (MAP) 132/97 (109) Pulse Ox 100 O2 Delivery Room Air O2 Flow Rate 0 Capillary Refill : Less Than 3 Seconds General Appearance: WD/WN, moderate distress Neck: full range of motion, supple Respiratory: lungs clear, normal breath sounds Cardiovascular: regular rate, rhythm, no murmur Gastrointestinal: normal bowel sounds, non tender, soft Extremities: non-tender, normal inspection Back: normal inspection, no CVA tenderness, no vertebral tenderness Neurologic/Psychiatric: alert, oriented x 3 Skin: normal color, warm/dry Progress/Results/Core Measures Results/Orders Lab Results Laboratory Tests Test 03/31/18 06:27 03/31/18 06:40 Range/Units White Blood Count 10.5 4.3-11.0 10^3/uL Red Blood Count 4.31 L 4.35-5.85 10^6/uL Hemoglobin 12.1 11.5-16.0 G/DL Hematocrit 37 35-52 % Mean Corpuscular Volume 85 80-99 FL Mean Corpuscular Hemoglobin 28 25-34 PG Mean Corpuscular Hemoglobin Concent 33 32-36 G/DL Red Cell Distribution Width 16.6 H 10.0-14.5 % Platelet Count 325 130-400 10^3/uL Mean Platelet Volume 11.1 H 7.4-10.4 FL Neutrophils (%) (Auto) 59 42-75 % Lymphocytes (%) (Auto) 31 12-44 % Monocytes (%) (Auto) 8 0-12 % Eosinophils (%) (Auto) 1 0-10 % Basophils (%) (Auto) 0 0-10 % Neutrophils # (Auto) 6.2 1.8-7.8 X 10^3 Lymphocytes # (Auto) 3.3 1.0-4.0 X 10^3 Monocytes # (Auto) 0.9 0.0-1.0 X 10^3 Eosinophils # (Auto) 0.1 0.0-0.3 10^3/uL Basophils # (Auto) 0.0 0.0-0.1 10^3/uL Sodium Level 138 135-145 MMOL/L Potassium Level 3.7 3.6-5.0 MMOL/L Chloride Level 109 H 98-107 MMOL/L Carbon Dioxide Level 19 L 21-32 MMOL/L Anion Gap 10 5-14 MMOL/L Blood Urea Nitrogen 8 7-18 MG/DL Creatinine 0.75 0.60-1.30 MG/DL Estimat Glomerular Filtration Rate > 60 BUN/Creatinine Ratio 11 Glucose Level 98 70-105 MG/DL Calcium Level 8.8 8.5-10.1 MG/DL Total Bilirubin 0.2 0.1-1.0 MG/DL Aspartate Amino Transf (AST/SGOT) 25 5-34 U/L Alanine Aminotransferase (ALT/SGPT) 23 0-55 U/L Alkaline Phosphatase 77 40-136 U/L Total Protein 7.7 6.4-8.2 GM/DL Albumin 4.5 3.2-4.5 GM/DL Amylase Level 83 25-125 U/L Lipase 22 8-78 U/L Urine Color YELLOW Urine Clarity CLEAR Urine pH 7 5-9 Urine Specific [place] 1.015 L 1.016-1.022 Urine Protein 2+ H NEGATIVE Urine Glucose (UA) NEGATIVE NEGATIVE Urine Ketones NEGATIVE NEGATIVE Urine Nitrite NEGATIVE NEGATIVE Urine Bilirubin NEGATIVE NEGATIVE Urine Urobilinogen NORMAL NORMAL MG/DL Urine Leukocyte Esterase 1+ H NEGATIVE Urine RBC (Auto) 3+ H NEGATIVE Urine RBC 5-10 H /HPF Urine WBC 0-2 /HPF Urine Squamous Epithelial Cells 2-5 /HPF Urine Crystals NONE /LPF Urine Bacteria NEGATIVE /HPF Urine Casts NONE /LPF Urine Mucus NEGATIVE /LPF Urine Culture Indicated NO Urine Opiates Screen NEGATIVE NEGATIVE Urine Oxycodone Screen NEGATIVE NEGATIVE Urine Methadone Screen NEGATIVE NEGATIVE Urine Propoxyphene Screen NEGATIVE NEGATIVE Urine Barbiturates Screen NEGATIVE NEGATIVE Ur Tricyclic Antidepressants Screen NEGATIVE NEGATIVE Urine Phencyclidine Screen NEGATIVE NEGATIVE Urine Amphetamines Screen NEGATIVE NEGATIVE Urine Methamphetamines Screen NEGATIVE NEGATIVE Urine Benzodiazepines Screen NEGATIVE NEGATIVE Urine Cocaine Screen NEGATIVE NEGATIVE Urine Cannabinoids Screen POSITIVE H NEGATIVE My Orders Orders - JAYSON NASH MD Amylase (03/31/18 06:13) Cbc With Automated Diff (03/31/18 06:13) Comprehensive Metabolic Panel (03/31/18 06:13) Drug Screen Stat (Urine) (03/31/18 06:13) Lipase (03/31/18 06:13) Ua Culture If Indicated (03/31/18 06:13) Saline Lock/Iv-Start (03/31/18 06:13) Ns Iv 1000 Ml (Sodium Chloride 0.9%) (03/31/18 06:13) Promethazine Injection (Phenergan Injec (03/31/18 06:13) Haloperidol Injection (Haldol Injectio (03/31/18 06:15) Medications Given in ED Current Medications Medications Dose Ordered Sig/Deniz Route Start Time Stop Time Status Last Admin Dose Admin Haloperidol Lactate 5 mg ONCE ONCE IV 03/31/18 06:15 03/31/18 06:16 DC 03/31/18 06:37 5 MG Sodium Chloride 1,000 ml @ 0 mls/hr Q0M ONCE IV 03/31/18 06:13 03/31/18 06:15 DC 03/31/18 06:37 0 MLS/HR Vital Signs/I&O 03/31/18 03/31/18 06:19 08:10 Temp 96.5 Pulse 75 87 Resp 20 15 B/P (MAP) 132/97 (109) 129/82 Pulse Ox 100 97 O2 Delivery Room Air Room Air O2 Flow Rate 0 Blood Pressure Mean: 109 Progress Progress Note : Progress Note Seen and evaluated. IV, labs, UA and UDS ordered. Normal saline 1 L bolus. Haldol 5 mg IV and Phenergan 25 mg IV ordered. Monitor patient. 0820: Much better. Discharged home with return precautions. Patient verbalize understanding instructions and agreement with plan. Departure Impression Primary Impression: Diffuse abdominal pain Additional Impression: Marijuana abuse, continuous Disposition: 01 HOME, SELF-CARE Condition: Improved Departure-Patient Inst. Decision time for Depature: 08:20 Referrals: [facility] (PCP/Family) Primary Care Physician Patient Instructions: Acute Abdomen (Belly Pain), Adult (DC) Add. Discharge Instructions: All discharge instructions reviewed with patient and/or family. Voiced understanding. Clear liquid diet for 24 hours and then advance as tolerated. Follow-up with your DrDallin in a few days for recheck. Refrain from using marijuana. Return for worse pain, fever, vomiting, weakness, breathing problems or other concerns as needed. JAYSON NASH MD Mar 31, 2018 06:41
[2018-03-31 06:47] LABS: BASOPHILS % (AUTO) 0 % (0-10); EOSINOPHILS # (AUTO) 0.1 10^3/uL (0.0-0.3); EOSINOPHILS % (AUTO) 1 % (0-10); HEMATOCRIT 37 % (35-52); HEMOGLOBIN 12.1 G/DL (11.5-16.0); LYMPHOCYTES # (AUTO) 3.3 X 10^3 (1.0-4.0); LYMPHOCYTES % (AUTO) 31 % (12-44); MEAN CORPUSCULAR HEMOGLOBIN 28 PG (25-34); MEAN CORPUSCULAR HGB CONC 33 G/DL (32-36); MEAN CORPUSCULAR VOLUME 85 FL (80-99); MEAN PLATELET VOLUME 11.1 FL (7.4-10.4); MONOCYTES # (AUTO) 0.9 X 10^3 (0.0-1.0); MONOCYTES % (AUTO) 8 % (0-12); NEUTROPHILS # (AUTO) 6.2 X 10^3 (1.8-7.8); NEUTROPHILS % (AUTO) 59 % (42-75); PLATELET COUNT 325 10^3/uL (130-400); RED BLOOD COUNT 4.31 10^6/uL (4.35-5.85); RED CELL DISTRIBUTION WIDTH 16.6 % (10.0-14.5); WHITE BLOOD COUNT 10.5 10^3/uL (4.3-11.0)
[2018-03-31 06:50] LABS: BILIRUBIN,URINE NEGATIVE (NEGATIVE); CLARITY,URINE CLEAR; COLOR,URINE YELLOW; GLUCOSE, URINE (UA) NEGATIVE (NEGATIVE); KETONES,URINE NEGATIVE (NEGATIVE); LEUKOCYTE ESTERASE ,URINE 1+ (NEGATIVE); NITRITE,URINE NEGATIVE (NEGATIVE); PH,URINE 7 (5-9); PROTEIN,URINE 2+ (NEGATIVE); UROBILINOGEN,URINE NORMAL (NORMAL)
[2018-03-31 07:05] LABS: BACTERIA,URINE NEGATIVE /HPF; WBC,URINE 0-2 /HPF
[2018-03-31 07:09] LABS: AMPHETAMINE SCREEN, URINE NEGATIVE (NEGATIVE); BARBITURATE SCREEN URINE NEGATIVE (NEGATIVE); BENZODIAZEPINES SCREEN URINE NEGATIVE (NEGATIVE); CANNABINOID SCREEN, URINE POSITIVE (NEGATIVE); COCAINE SCREEN URINE NEGATIVE (NEGATIVE); METHADONE STAT NEGATIVE (NEGATIVE); METHAMPHETAMINE SCREEN URINE S NEGATIVE (NEGATIVE); OPIATE SCREEN URINE NEGATIVE (NEGATIVE); OXYCODONE STAT NEGATIVE (NEGATIVE); PROPOXYPHENE STAT NEGATIVE (NEGATIVE); TRICYCLIC ANTIDEPRESSANTS SCRE NEGATIVE (NEGATIVE)
[2018-03-31 07:13] LABS: ALANINE AMINOTRANSFERASE 23 U/L (0-55); ALBUMIN 4.5 GM/DL (3.2-4.5); ALKALINE PHOSPHATASE 77 U/L (40-136); AMYLASE 83 U/L (25-125); BILIRUBIN,TOTAL 0.2 MG/DL (0.1-1.0); BUN/CREATININE RATIO 11; CALCIUM 8.8 MG/DL (8.5-10.1); CARBON DIOXIDE 19 MMOL/L (21-32); CHLORIDE 109 MMOL/L (98-107); CREATININE SERUM 0.75 MG/DL (0.60-1.30); GFR ESTIMATED > 60; GLUCOSE 98 MG/DL (70-105); LIPASE 22 U/L (8-78); POTASSIUM 3.7 MMOL/L (3.6-5.0); SODIUM 138 MMOL/L (135-145); TOTAL PROTEIN 7.7 GM/DL (6.4-8.2)
[2018-03-31 08:10] VITALS: BP 129/82
== END 2018-03-31 08:10 | disposition home or self-care (01) ==
LOC: EDUNIT# 06:07 → ER 06:09
DX: R10.84 Generalized abdominal pain (principal); F15.10 Other stimulant abuse, uncomplicated; F41.9 Anxiety disorder, unspecified; F31.9 Bipolar disorder, unspecified; F32.9 Major depressive disorder, single episode, unspecified; F17.210 Nicotine dependence, cigarettes, uncomplicated; Z91.5 Personal history of self-harm; Z87.59 Personal history of other complications of pregnancy, childbirth and the puerperium; Z98.51 Tubal ligation status; Z98.890 Other specified postprocedural states
CPT/HCPCS: 36415; 80053; 80306; 81000; 82150; 83690; 85025; 96361; 96374; 96375

== ENCOUNTER 2018-04-09 18:08 | Emergency (ER) | payer MEDICAID ==
[~2018-04-09] VITALS: Ht 149.9 cm; Wt 54.0 kg
[2018-04-09] MEDS ORDERED: NS IV 1000 ML 1,000 ML IV ONE (18:50)
[2018-04-09] MEDS ORDERED: PROMETHAZINE INJ 25 MG/ML (PHENERGAN) AMP IVP STA (18:50)
[2018-04-09] MEDS ORDERED: fentaNYL INJECTION 100 MCG/2 ML AMP IVP STA (18:56)
[2018-04-09] MEDS ORDERED: HALOPERIDOL 5 MG/ML (HALDOL) AMP IV ONE (19:00)
[2018-04-09 19:21] LABS: BASOPHILS # (AUTO) 0.1 10^3/uL (0.0-0.1); BASOPHILS % (AUTO) 0 % (0-10); EOSINOPHILS % (AUTO) 0 % (0-10); HEMATOCRIT 36 % (35-52); HEMOGLOBIN 11.8 G/DL (11.5-16.0); LYMPHOCYTES # (AUTO) 2.5 X 10^3 (1.0-4.0); LYMPHOCYTES % (AUTO) 19 % (12-44); MEAN CORPUSCULAR HEMOGLOBIN 28 PG (25-34); MEAN CORPUSCULAR HGB CONC 33 G/DL (32-36); MEAN CORPUSCULAR VOLUME 85 FL (80-99); MEAN PLATELET VOLUME 10.5 FL (7.4-10.4); MONOCYTES # (AUTO) 0.5 X 10^3 (0.0-1.0); MONOCYTES % (AUTO) 4 % (0-12); NEUTROPHILS # (AUTO) 9.9 X 10^3 (1.8-7.8); NEUTROPHILS % (AUTO) 76 % (42-75); PLATELET COUNT 377 10^3/uL (130-400); RED BLOOD COUNT 4.19 10^6/uL (4.35-5.85); RED CELL DISTRIBUTION WIDTH 16.3 % (10.0-14.5)
--- NOTE | 2018-04-09 19:46 | ED Abdominal Pain ---
General Chief Complaint: Abdominal/GI Problems Stated Complaint: VOMITTING,PAIN IN ABD Nursing Triage Note: PT AMB TO ROOM 1 HOLDING STOMACH IN PAIN. A&OX4. CO SEVERE ABD PAIN AND N/V SINCE THIS MORNING. PT REPORTS SHE TOOK ZOFRAN AT HOME TO TRY AND STOP THE N/V. REPORTS SHE DRANK ALCOHOL LAST NIGHT. SIG. OTHER AT BED SIDE. Sepsis Screen: No Definite Risk Source of Information: Patient Exam Limitations: No Limitations History of Present Illness Date Seen by Provider: Apr 09, 2018 Time Seen by Provider: 18:50 Initial Comments Here with report of bowel pain that started about 11 a.m. today. 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 States that she is stop using marijuana since the last time seen her and does admit that she drank a few margaritas last night. This has apparently caused the problem today. She is writhing in pain and does complain of nausea. No vomiting currently. Denies any blood in vomit or stool. Timing/Duration: 4-6 Hours, Getting Worse Severity/Quality: Moderate, Severe, Aching, Cramping, Sharp Location: Epigastric Radiation: No Radiation Activities at Onset: None Modifying Factors: Improves With Analgesics; Worsens With Eating Associated Symptoms: No Back Pain, No Chest Pain, No Fever/Chills; Heartburn, Nausea/Vomiting; No Shortness of Air, No Swelling/Mass in Abdomen, No Weakness Allergies and Home Medications Allergies Coded Allergies: No Known Drug Allergies (Verified , 12/31/16) Home Medications Cephalexin 500 Mg Tablet, 500 MG PO BID Prescribed by: JAYSON NASH on 03/23/18 1547 Ciprofloxacin HCl 500 Mg Tablet, 500 MG PO BID Prescribed by: CASSANDRA SANDOVAL on 02/28/18 1205 Ibuprofen 800 Mg Tablet, 800 MG PO Q6H PRN for PAIN Prescribed by: CASSANDRA SANDOVAL on 02/28/18 1205 Metronidazole 500 Mg Tablet, 500 MG PO BID Prescribed by: CASSANDRA SANDOVAL on 02/28/18 1205 Ondansetron 4 Mg Tab.rapdis, 4 MG PO Q6H PRN for NAUSEA/VOMITING Prescribed by: JAYSON NASH on 03/23/18 1547 Oxycodone HCl/Acetaminophen 1 Each Tablet, 1-2 EACH PO Q4H Prescribed by: CASSANDRA SANDOVAL on 02/28/18 1205 Patient Home Medication List Home Medication List Reviewed: Yes Review of Systems Constitutional: see HPI; No chills, No fever EENTM: No Symptoms Reported Respiratory: No Symptoms Reported Cardiovascular: No Symptoms Reported Gastrointestinal: See HPI, Abdominal Pain; Denies Diarrhea Genitourinary: No Symptoms Reported Musculoskeletal: no symptoms reported Skin: no symptoms reported Psychiatric/Neurological: See HPI, Anxiety; Denies Weakness All Other Systems Reviewed Negative Unless Noted: Yes Past Udwntiu-Gfggsj-Iatnyy Hx Past Med/Social Hx: Reviewed Nursing Past Med/Soc Hx Patient Social History Alcohol Use: Rarely Uses Number of Drinks Today: CC Alcohol Beverage of Choice: Cheap Liquor Recreational Drug Use: No (DRANK LAST NOC) Drug of Choice: CANNIBUS Smoking Status: Former Smoker Type Used: Cigarettes Former Smoker, Quit: February 14, 2018 2nd Hand Smoke Exposure: No Recent Foreign Travel: No Contact w/Someone Who Travel: No Recent Infectious Disease Expo: No Recent Hopitalizations: No Physical Abuse: No Sexual Abuse: No Immunizations Up To Date Tetanus Booster (TDap): More than 5yrs Seasonal Allergies Seasonal Allergies: Yes Past Medical History Surgeries: Yes (I&D x3 of Bartholin cyct in GENITAL AREA, c/s x3, bartholin gland removal) Section, Tubal Ligation Respiratory: No Cardiac: No Neurological: No Last Menstrual Period: Apr 03, 2018 Reproductive Disorders: Yes (BARTHOLIN'S ABSCESSES) Female Reproductive Disorders: 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 Sexually Transmitted Disease: Yes (CHLAMYDIA) HIV/AIDS: No Genitourinary: No Gastrointestinal: Yes Pancreatitis Musculoskeletal: No Endocrine: No HEENT: No Loss of Vision: Denies Hearing Impairment: Denies Cancer: No Psychosocial: Yes (OVERDOSE 2006) Anxiety, Suicide Attempts, Bipolar, Depression Nursing Suicide Risk Score: 0 Integumentary: No Blood Disorders: No Family Medical History Reviewed Nursing Family Hx Congestive heart failure G8 SISTER Family history: Diabetes mellitus G8 SISTER History of - anemia 19 MOTHER G8 SISTER History of - disorder G8 SISTER (MS) No Family History of: Abdominal aortic aneurysm Alcoholism Cancer Dementia Family history: Alzheimer's disease Family history: Arthritis Family history: Asthma Family history: Breast disease Family history: Cardiovascular disease Family history: Gastrointestinal disease Family history: Hypertension Family history: Thyroid disorder Hereditary disease History of - respiratory disease Kidney disease Myocardial infarction Parkinson's disease Prostate cancer Psychotic disorder Seizure disorder Stroke No Pertinent Family Hx Physical Exam Vital Signs Vital Signs - First Documented 04/09/18 18:42 Temp 96.1 Pulse 63 Resp 16 B/P (MAP) 139/85 (103) Pulse Ox 100 O2 Delivery Room Air Capillary Refill : Less Than 3 Seconds Height/Weight/BMI Height: 4'11.00" Weight: 119lbs. 9.0oz. 53.162008vn; 22.6 BMI Method:Stated General Appearance: WD/WN, moderate distress HEENT: PERRL/EOMI, pharynx normal Neck: full range of motion, supple Respiratory: lungs clear, normal breath sounds Cardiovascular: regular rate, rhythm, no murmur Gastrointestinal: normal bowel sounds, soft, tenderness (diffusely tender in the upper abdomen) Extremities: non-tender, normal inspection Back: normal inspection, no CVA tenderness, no vertebral tenderness Neurologic/Psychiatric: alert, oriented x 3 Skin: normal color, warm/dry Progress/Results/Core Measures Results/Orders Lab Results Laboratory Tests Test 04/09/18 19:13 Range/Units White Blood Count 13.0 H 4.3-11.0 10^3/uL Red Blood Count 4.19 L 4.35-5.85 10^6/uL Hemoglobin 11.8 11.5-16.0 G/DL Hematocrit 36 35-52 % Mean Corpuscular Volume 85 80-99 FL Mean Corpuscular Hemoglobin 28 25-34 PG Mean Corpuscular Hemoglobin Concent 33 32-36 G/DL Red Cell Distribution Width 16.3 H 10.0-14.5 % Platelet Count 377 130-400 10^3/uL Mean Platelet Volume 10.5 H 7.4-10.4 FL Neutrophils (%) (Auto) 76 H 42-75 % Lymphocytes (%) (Auto) 19 12-44 % Monocytes (%) (Auto) 4 0-12 % Eosinophils (%) (Auto) 0 0-10 % Basophils (%) (Auto) 0 0-10 % Neutrophils # (Auto) 9.9 H 1.8-7.8 X 10^3 Lymphocytes # (Auto) 2.5 1.0-4.0 X 10^3 Monocytes # (Auto) 0.5 0.0-1.0 X 10^3 Eosinophils # (Auto) 0.0 0.0-0.3 10^3/uL Basophils # (Auto) 0.1 0.0-0.1 10^3/uL Sodium Level 140 135-145 MMOL/L Potassium Level 3.3 L 3.6-5.0 MMOL/L Chloride Level 107 98-107 MMOL/L Carbon Dioxide Level 16 L 21-32 MMOL/L Anion Gap 17 H 5-14 MMOL/L Blood Urea Nitrogen 10 7-18 MG/DL Creatinine 0.79 0.60-1.30 MG/DL Estimat Glomerular Filtration Rate > 60 BUN/Creatinine Ratio 13 Glucose Level 118 H 70-105 MG/DL Calcium Level 9.1 8.5-10.1 MG/DL Total Bilirubin 0.3 0.1-1.0 MG/DL Aspartate Amino Transf (AST/SGOT) 29 5-34 U/L Alanine Aminotransferase (ALT/SGPT) 33 0-55 U/L Alkaline Phosphatase 77 40-136 U/L Total Protein 7.7 6.4-8.2 GM/DL Albumin 4.6 H 3.2-4.5 GM/DL Lipase 8 8-78 U/L My Orders Orders - JAYSON NASH MD Cbc With Automated Diff (04/09/18 18:50) Comprehensive Metabolic Panel (04/09/18 18:50) Lipase (04/09/18 18:50) Ua Culture If Indicated (04/09/18 18:50) Saline Lock/Iv-Start (04/09/18 18:50) Ns Iv 1000 Ml (Sodium Chloride 0.9%) (04/09/18 18:50) Promethazine Injection (Phenergan Injec (04/09/18 18:50) Haloperidol Injection (Haldol Injectio (04/09/18 19:00) Fentanyl Injection (Sublimaze Injection (04/09/18 18:56) Medications Given in ED Current Medications Medications Dose Ordered Sig/Deniz Route Start Time Stop Time Status Last Admin Dose Admin Haloperidol Lactate 5 mg ONCE ONCE IV 04/09/18 19:00 04/09/18 19:01 DC 04/09/18 19:13 5 MG Sodium Chloride 1,000 ml @ 0 mls/hr Q0M ONCE IV 04/09/18 18:50 04/09/18 18:51 DC 04/09/18 19:08 1,000 MLS/HR Vital Signs/I&O 04/09/18 18:42 Temp 96.1 Pulse 63 Resp 16 B/P (MAP) 139/85 (103) Pulse Ox 100 O2 Delivery Room Air Blood Pressure Mean: 103 Progress Progress Note : Progress Note Seen and evaluated. IV, labs, UA, normal saline 1 L bolus, Phenergan 25 mg IV and Haldol 5 mg IV ordered. This typically abates her cyclic vomiting related to the marijuana use. We will give fentanyl 75 g IV for her abdominal pain. Monitor patient. 2114: Overall much improved. Is no acute findings on laboratory evaluation. Discharged home with return precautions. Patient verbalize understanding instructions and agreement with plan. Departure Impression Primary Impression: Epigastric abdominal pain Disposition: HOME, SELF-CARE Condition: Improved Departure-Patient Inst. Decision time for Depature: 21:21 Referrals: [facility] (PCP/Family) Primary Care Physician Patient Instructions: Acute Abdomen (Belly Pain), Adult (DC) Add. Discharge Instructions: All discharge instructions reviewed with patient and/or family. Voiced understanding. You should avoid alcohol and continue to avoid marijuana. Drink plenty of fluids. You should initiate Pepcid or the generic famotidine 20 mg daily to decrease stomach acid. You can get this [id number]. Follow-up with your DrDallin in a few days for recheck. Return for worse pain, fever, vomiting, weakness , breathing problems or other concerns as needed. JAYSON NASH MD Apr 09, 2018 19:46
[2018-04-09 20:02] LABS: ALANINE AMINOTRANSFERASE 33 U/L (0-55); ALBUMIN 4.6 GM/DL (3.2-4.5); ALKALINE PHOSPHATASE 77 U/L (40-136); BILIRUBIN,TOTAL 0.3 MG/DL (0.1-1.0); BUN/CREATININE RATIO 13; CALCIUM 9.1 MG/DL (8.5-10.1); CARBON DIOXIDE 16 MMOL/L (21-32); CHLORIDE 107 MMOL/L (98-107); CREATININE SERUM 0.79 MG/DL (0.60-1.30); GFR ESTIMATED > 60; GLUCOSE 118 MG/DL (70-105); LIPASE 8 U/L (8-78); POTASSIUM 3.3 MMOL/L (3.6-5.0); SODIUM 140 MMOL/L (135-145); TOTAL PROTEIN 7.7 GM/DL (6.4-8.2)
[2018-04-09 21:30] VITALS: BP 116/79
[2018-04-09 21:33] LABS: BILIRUBIN,URINE NEGATIVE (NEGATIVE); CLARITY,URINE CLEAR; COLOR,URINE YELLOW; GLUCOSE, URINE (UA) NEGATIVE (NEGATIVE); KETONES,URINE 1+ (NEGATIVE); LEUKOCYTE ESTERASE ,URINE 1+ (NEGATIVE); NITRITE,URINE NEGATIVE (NEGATIVE); PH,URINE 6.5 (5-9); PROTEIN,URINE 2+ (NEGATIVE); UROBILINOGEN,URINE NORMAL (NORMAL)
[2018-04-09 21:51] LABS: AMPHETAMINE SCREEN, URINE NEGATIVE (NEGATIVE); BARBITURATE SCREEN URINE NEGATIVE (NEGATIVE); BENZODIAZEPINES SCREEN URINE POSITIVE (NEGATIVE); CANNABINOID SCREEN, URINE POSITIVE (NEGATIVE); COCAINE SCREEN URINE NEGATIVE (NEGATIVE); METHADONE STAT NEGATIVE (NEGATIVE); METHAMPHETAMINE SCREEN URINE S NEGATIVE (NEGATIVE); OPIATE SCREEN URINE NEGATIVE (NEGATIVE); OXYCODONE STAT NEGATIVE (NEGATIVE); PROPOXYPHENE STAT NEGATIVE (NEGATIVE); TRICYCLIC ANTIDEPRESSANTS SCRE NEGATIVE (NEGATIVE)
--- OUTSIDE RECORDS SUMMARY | 2018-04-10 12:55 | XMS REPORT ---
Author Author ANN CUEVAS [facility] Address [address] [place] [address] Care Team Providers Care Corporate Compliance Director Name Role Phone ANN CUEVAS Unavailable PROBLEMS Unknown Problems ALLERGIES No Known Allergies ENCOUNTERS Encounter Location Date Diagnosis [facility] [id number] [place] [phone] Aug, Concern about STD in female without diagnosis Z71.1 ; STD exposure Z20.2 ; Other specified bacterial agents as the cause of diseases classified elsewhere B96.89 and Acute vaginitis N76.0 [facility] [id number] [place] [phone] Aug, Other viral agents as the cause of diseases classified elsewhere B97.89 and Acute upper respiratory infection, unspecified J06.9 [facility] [address] [phone] January, [facility] [address] [id number] Dec, Dental examination Z01.20 [facility] [id number] [place] [phone] Jun, [facility] [address] [phone] Oct, [facility] [address] [phone] Oct, [facility] [address] [id number] Aug, [facility] [address] [phone] Aug, [facility] [address] [facility] [id number] [place], [place] [address] Jun, [facility] [address] [facility] [id number] [place] [address] Jun, [facility] [address] [facility] [id number] [place] [address] Jul, IMMUNIZATIONS No Known Immunizations SOCIAL HISTORY Never Assessed REASON FOR VISIT Cough/ congestion JStrasserRN PLAN OF CARE Activity Details Follow Up prn Reason: VITAL SIGNS Weight 116 lbs 2017-09-20 Temperature 98.2 degrees Fahrenheit 2017-09-20 Heart Rate 76 bpm 2017-09-20 Respiratory Rate 18 2017-09-20 Blood pressure systolic 94 mmHg 2017-09-20 Blood pressure diastolic 60 mmHg 2017-09-20 MEDICATIONS No Known Medications RESULTS No Results PROCEDURES No Known procedures INSTRUCTIONS MEDICATIONS ADMINISTERED No Known Medications
--- OUTSIDE RECORDS SUMMARY | 2018-04-10 12:55 | XMS REPORT | Clinical Summary ---
Author Author [facility] Organization [facility] Address Unknown Phone Unavailable Care Team Providers Care Supervisor Partial Denture Department Name Role Phone Self, Referral PCP Unavailable Kylee Flores MD Unavailable Source Comments Some departments are not documenting in the electronic medical record. If you do not see the information that you expected, contact Release of Information in the Health Information Management department at [phone] for further assistance in locating additional records.[facility] Allergies No Known Allergies Current Medications [...] 2002 CERVICAL CANCER SCREENING 2015 INFLUENZA VACCINE 06/26/2018 HIV SCREENING Completed 06/22/2008 Results Not on filefrom Last 3 Months
--- OUTSIDE RECORDS SUMMARY | 2018-04-10 13:01 | XMS REPORT | Continuity of Care Document ---
Author Author [facility] Address Unknown Phone Unavailable Allergies Active Description Code Type Severity Reaction Onset Reported/Identified Relationship to Patient Clinical Status Yes No Known Drug Allergies [id number] Drug Allergy Unknown N/A 12/31/2016 Medications There [...] PAIN, OTHER SPECIFIED SITE 06/27/2013 SASHA CARLSON HOT PIPE GAUGER Ot 564.00 UNSPEC CONSTIPATION 06/27/2013 SASHA CARLSON APRN Ot 599.0 URIN TRACT INFECTION NOS 06/27/2013 SASHA CARLSON HOT PIPE GAUGER Ot 646.63 INFECTION-ANTEPARTUM 06/27/2013 SASHA CARLSON HOT PIPE GAUGER Ot 646.83 PREG COMPL NEC-ANTEPART 06/27/2013 SASHA CARLSON HOT PIPE GAUGER Ot 789.00 ABDOMINAL PAIN, UNSPECIFIED SITE 07/02/2013 SASHA CARLSON HOT PIPE GAUGER Ot 599.0 URIN TRACT INFECTION NOS 07/02/2013 SASAH CARLSON HOT PIPE GAUGER Ot 646.63 INFECTION-ANTEPARTUM 07/02/2013 SASHA CARLSON HOT PIPE GAUGER Ot 646.83 PREG COMPL NEC-ANTEPART 07/02/2013 SASHA CARLSON HOT PIPE GAUGER Ot 787.01 NAUSEA WITH VOMITING 08/20/2013 JORDAN [...] ANTEPA 01/26/2014 CASSANDRA GUILLERMO MD Ot V06.1 [id number], COMBINED [ 01/26/2014 CASSANDRA GUILLERMO MD Ot [...] URINARY TRACT INFECTION, SITE NOT SPECIF 11/15/2015 CORNELUIS STRONG DO Ot R10.84 GENERALIZED ABDOMINAL PAIN [...] Ot G43.A0 CYCLICAL VOMITING, NOT INTRACTABLE 05/14/2016 AJYSON NASH MD Ot N39.0 URINARY TRACT INFECTION, [...] N75.1 ABSCESS OF [place]THOLIN[place]S GLAND 12/16/2016 CASSANDRA GULILERMO MD, Ot N75.1 ABSCESS OF BARTHOLIN'S GL[place] [...] ABSCESS OF [place]TH[place]IN[place] GL[place] 01/05/2017 EAGLE MD, ACSSANDRA G Ot 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 [...] ORTEGA MD Ot E87.6 HYPOKALEMIA 02/08/2017 JANNA OTREGA MD Ot F12.90 CANNABIS USE, UNSPECIFIED, UNCOMPLICATED [...] Z98.51 TUBAL LIGATION STATUS 08/07/2017 SASHA CARLSON HOT PIPE GAUGER Ot F31.9 BIPOLAR DISORDER, UNSPECIFIED 08/07/2017 SASHA CARLSON APRN Ot F41.9 ANXIETY DISORDER, UNSPECIFIED 08/07/2017 SASHA CARLSON HOT PIPE GAUGER Ot R10.84 GENERALIZED ABDOMINAL PAIN 08/07/2017 SASHA CARLSON HOT PIPE GAUGER Ot Z82.49 FAMILY HX OF ISCHEM HEART DIS AND OTH DI 08/07/2017 SASHA CARLSON HOT PIPE GAUGER Ot Z87.19 PERSONAL HISTORY OF OTHER DISEASES OF 08/07/2017 SASHA CARLSON HOT PIPE GAUGER Ot Z87.59 PERSONAL HISTORY OF COMP OF PREG, CHLDBR 08/07/2017 SASHA CARLSON APRN Ot Z87.891 PERSONAL HISTORY OF NICOTINE DEPENDENCE 08/07/2017 SASHA CARLSON APRN Ot Z98.51 TUBAL LIGATION STATUS 10/05/2017 JOSE ANTONIO DO ROSA K Ot F10.10 ALCOHOL ABUSE, UNCOMPLICATED 10/05/2017 JOSE ANTONIO DO, ROSA K Ot F12.10 CANNABIS ABUSE, UNCOMPLICATED 10/05/2017 JOSE ANTONIO DO, ROSA K Ot F14.10 COCAINE ABUSE, UNCOMPLICATED 10/05/2017 JOSE ANTONIO DO, ROSA K Ot F17.210 NICOTINE DEPENDENCE, CIGARETTES, UNCOMPL 10/05/2017 JOSE ANTONIO DO ROSA K Ot F31.9 BIPOLAR DISORDER, UNSPECIFIED 10/05/2017 JOSE ANTONIO DO, ROSA K Ot F41.9 ANXIETY DISORDER, UNSPECIFIED 10/05/2017 JOSE ANTONIO DO, ROSA K Ot G89.29 OTHER CHRONIC PAIN 10/05/2017 JOSE ANTONIO DO ROSA K Ot R10.32 LEFT LOWER QUADRANT PAIN 10/05/2017 JOSE ANTONIO DO, ROSA K Ot R11.2 NAUSEA WITH VOMITING, UNSPECIFIED 10/05/2017 JOSE ANTONIO DO ROSA K Ot Z82.49 FAMILY HX OF ISCHEM HEART DIS AND OTH DI 10/05/2017 JOSE ANTONIO ROSA K Ot Z87.19 PERSONAL HISTORY OF OTHER DISEASES OF 10/05/2017 JOSE ANTONIO ROSA K Ot Z87.59 PERSONAL HISTORY OF COMP OF PREG, CHLDBR 10/05/2017 JOSE ANTONIO DO ROSA K Ot Z91.5 PERSONAL HISTORY OF SELF-HARM 10/05/2017 JOSE ANTONIO BARBER ROSA K Ot Z98.51 TUBAL LIGATION STATUS 03/01/2018 EAGLE MENDIOLA, CASSANDRA Dutton Ot N76.4 ABSCESS OF VULVA 03/01/2018 EAGLE MENDIOLA, CASSANDRA Dutton Ot Z87.891 PERSONAL HISTORY OF NICOTINE DEPENDENCE 03/02/2018 CASSANDRA GUILLERMO MD, Ot N76.4 ABSCESS OF VULVA 03/02/2018 CASSANDRA GUILLERMO MD, Ot Z87.891 PERSONAL HISTORY OF NICOTINE DEPENDENCE 03/02/2018 CASSANDRA GUILLERMO MD, Ot N76.4 ABSCESS OF VULVA 03/02/2018 CASSANDRA GUILLERMO MD, Ot Z87.891 PERSONAL HISTORY OF NICOTINE DEPENDENCE 03/23/2018 JAYSON NASH MD Ot F12.129 CANNABIS ABUSE WITH INTOXICATION, UNSPEC 03/23/2018 JAYSON NASH MD, Ot F31.9 BIPOLAR DISORDER, UNSPECIFIED 03/23/2018 JAYSON NASH MD, Ot F41.9 ANXIETY DISORDER, UNSPECIFIED 03/23/2018 JAYSON NASH MD, Ot K31.89 OTHER DISEASES OF STOMACH AND DUODENUM 03/23/2018 JAYSON NASH MD Ot N39.0 URINARY TRACT INFECTION, SITE NOT SPECIF 03/23/2018 JAYSON NASH MD Ot R10.84 GENERALIZED ABDOMINAL PAIN 03/23/2018 JAYSON NASH MD Ot R11.10 VOMITING, UNSPECIFIED 03/23/2018 JAYSON NASH MD Ot Z87.19 PERSONAL HISTORY OF OTHER DISEASES OF TH 03/23/2018 JAYSON NASH MD Ot Z87.59 PERSONAL HISTORY OF COMP OF PREG, CHLDBR 03/23/2018 JAYSON NASH MD Ot Z87.891 PERSONAL HISTORY OF NICOTINE DEPENDENCE 03/23/2018 JAYSON NASH MD Ot Z98.51 TUBAL LIGATION STATUS 03/23/2018 JAYSON NASH MD Ot Z98.890 OTHER SPECIFIED POSTPROCEDURAL STATES 03/27/2018 JAYSON NASH MD Ot F12.129 CANNABIS ABUSE WITH INTOXICATION, UNSPEC 03/27/2018 JAYSON NASH MD Ot F31.9 BIPOLAR DISORDER, UNSPECIFIED 03/27/2018 JAYSON NASH MD Ot F41.9 ANXIETY DISORDER, UNSPECIFIED 03/27/2018 JAYSON NASH MD Ot K31.89 OTHER DISEASES OF STOMACH AND DUODENUM 03/27/2018 JAYSON NASH MD Ot N39.0 URINARY TRACT INFECTION, SITE NOT SPECIF 03/27/2018 JAYSON NASH MD Ot R10.84 GENERALIZED ABDOMINAL PAIN 03/27/2018 JAYSON NASH MD Ot R11.10 VOMITING, UNSPECIFIED 03/27/2018 JAYSON NASH MD Ot Z87.19 PERSONAL HISTORY OF OTHER DISEASES OF TH 03/27/2018 JAYSON NASH MD Ot Z87.59 PERSONAL HISTORY OF COMP OF PREG, CHLDBR 03/27/2018 JAYSON NASH MD Ot Z87.891 PERSONAL HISTORY OF NICOTINE DEPENDENCE 03/27/2018 JAYSON NASH MD Ot Z98.51 TUBAL LIGATION STATUS 03/27/2018 JAYSON NASH MD Ot Z98.890 OTHER SPECIFIED POSTPROCEDURAL STATES 04/03/2018 JAYSON NASH MD Ot F15.10 OTHER STIMULANT ABUSE, UNCOMPLICATED 04/03/2018 JAYSON NASH MD Ot F17.210 NICOTINE DEPENDENCE, CIGARETTES, UNCOMPL 04/03/2018 JAYSON NASH MD Ot F31.9 BIPOLAR DISORDER, UNSPECIFIED 04/03/2018 JAYSON NASH MD Ot F32.9 MAJOR DEPRESSIVE DISORDER, SINGLE EPISOD 04/03/2018 JAYSON NASH MD Ot F41.9 ANXIETY DISORDER, UNSPECIFIED 04/03/2018 JAYSON NASH MD Ot R10.84 GENERALIZED ABDOMINAL PAIN 04/03/2018 JAYSON NASH MD Ot Z87.59 PERSONAL HISTORY OF COMP OF PREG, CHLDBR 04/03/2018 JAYSON NASH MD Ot Z91.5 PERSONAL HISTORY OF SELF-HARM 04/03/2018 JAYSON NASH MD Ot Z98.51 TUBAL LIGATION STATUS 04/03/2018 JAYSON NASH MD Ot Z98.890 OTHER SPECIFIED POSTPROCEDURAL STATES Procedures Code Description Performed By Performed On 74.1 LOW CERVICAL 01/08/2010 72.9 INSTRUMENT DELIVERY NOS 01/24/2014 74.1 LOW CERVICAL 01/24/2014 Results Test Result Range Gram stain microscopy - 04/29/16 18:24 GRAM STAIN RESULT FEW GRAM POSITIVE COCCI NRG Bacteria identification in wound by culture - 04/29/16 18:24 Bacteria identification in wound by culture [id number] NRG QUANTITY OF GROWTH Scant Growth NRG Gram stain microscopy - 07/12/16 15:51 GRAM STAIN RESULT FEW GRAM NEGATIVE RODS NRG Bacteria identification in wound by culture - 07/12/16 15:51 Bacteria identification in wound by culture [id number] NRG QUANTITY OF GROWTH Abundant Growth NRG [...] Bacteria identification in wound by culture NG NR Complete blood count (CBC) with automated white [...] Bacteria identification in isolate by anaerobe culture [id number] NRG Gram stain microscopy - 12/09/16 12:47 Gram stain microscopy Few gram positive cocci NRG Bacteria identification in wound by culture - 12/09/16 12:47 Bacteria identification in wound by culture [id number] NR FREE TEXT EXTERNAL SENSITIVITY REPORTED 12/15/16 10:05 [...] count by microscopy (number/high power field) TNTC NR Automated urine sediment leukocyte count by microscopy [...] urinalysis with reflex to culture NO NRG CULTURE, GENITAL - 09/24/17 17:06 CULTURE, GENITAL SEE NOTE NRG Complete blood count (CBC) with automated [...] NRG Manual blood basophils/100 leukocytes 0 % NR Blood erythrocyte morphology finding identification NORMAL NR Comprehensive metabolic panel - 10/05/17 14:25 Serum [...] calculation of estimated glomerular filtration rate > NR Serum or plasma glucose measurement (mass/volume) 82 [...] culture - 10/05/17 14:31 Bacterial urine culture [id number] NRG COLONY COUNT 10,000/ML - 100,000/ML NRG FTX;REPORTABLE SENSITIVITIES NOT USUALLY PERFORMED ON NRG URINE CULTURE RESULTS PLUS NRG FREE TEXT ENTRY 2 THESE ORGANISMS. NRG Complete blood count (CBC) with automated white blood cell (WBC) differential - 02/28/18 10:25 Blood leukocytes automated count (number/volume) 14.2 10*3/uL 4.3-11.0 Blood erythrocytes automated count (number/volume) 4.26 10*6/uL 4.35-5.85 Venous blood hemoglobin measurement (mass/volume) 12.1 g/dL 11.5-16.0 Blood hematocrit (volume fraction) 37 % 35-52 Automated erythrocyte mean corpuscular volume 86 [foz_us] 80-99 Automated erythrocyte mean corpuscular hemoglobin (mass per erythrocyte) 28 pg 25-34 Automated erythrocyte mean corpuscular hemoglobin concentration measurement ( mass/volume) 33 g/dL 32-36 Automated erythrocyte distribution width ratio 15.4 % 10.0-14.5 Automated blood platelet count (count/volume) 292 10*3/uL 130-400 Automated blood platelet mean volume measurement 11.1 [foz_us] 7.4-10.4 Automated blood neutrophils/100 leukocytes 80 % 42-75 Automated blood lymphocytes/100 leukocytes 13 % 12-44 Blood monocytes/100 leukocytes 7 % 0-12 Automated blood eosinophils/100 leukocytes 0 % 0-10 Automated blood basophils/100 leukocytes 0 % 0-10 Blood neutrophils automated count (number/volume) 11.4 10*3 1.8-7.8 Blood lymphocytes automated count (number/volume) 1.8 10*3 1.0-4.0 Blood monocytes automated count (number/volume) 0.9 10*3 0.0-1.0 Automated eosinophil count 0.1 10*3/uL 0.0-0.3 Automated blood basophil count (count/volume) 0.0 10*3/uL 0.0-0.1 Blood manual differential performed detection - 02/28/18 10:25 Blood monocytes/100 leukocytes 9 % NRG Manual blood segmented neutrophils/100 leukocytes 70 % NRG Blood band neutrophils/100 leukocytes 2 % NRG Manual blood lymphocytes/100 leukocytes 19 % NRG Blood erythrocyte morphology finding identification NORMAL NRG Serum or plasma choriogonadotropin ( test) detection - 02/28/18 10:25 Serum or plasma choriogonadotropin ( test) detection NEGATIVE NEGATIVE Methicillin resistant Staphylococcus aureus (MRSA) screening culture - 10:30 Methicillin resistant Staphylococcus aureus (MRSA) screening culture NEG NRG Bacteria identification in isolate by anaerobe culture - 02/28/18 12:27 QUANTITY OF GROWTH Moderate Growth NRG Bacteria identification in isolate by anaerobe culture [id number] NRG Gram stain microscopy - 02/28/18 12:27 GRAM STAIN RESULT FEW GRAM NEGATIVE COCCOBACILLI NRG Bacteria identification in wound by culture - 02/28/18 12:27 Bacteria identification in wound by culture [facility] Complete blood count (CBC) with automated white blood cell (WBC) differential - 03/23/18 13:10 Blood leukocytes automated count (number/volume) 16.3 10*3/uL 4.3-11.0 Blood erythrocytes automated count (number/volume) 4.14 10*6/uL 4.35-5.85 Venous blood hemoglobin measurement (mass/volume) 11.8 g/dL 11.5-16.0 Blood hematocrit (volume fraction) 35 % 35-52 Automated erythrocyte mean corpuscular volume 84 [foz_us] 80-99 Automated erythrocyte mean corpuscular hemoglobin (mass per erythrocyte) 29 pg 25-34 Automated erythrocyte mean corpuscular hemoglobin concentration measurement ( mass/volume) 34 g/dL 32-36 Automated erythrocyte distribution width ratio 16.1 % 10.0-14.5 Automated blood platelet count (count/volume) 312 10*3/uL 130-400 Automated blood platelet mean volume measurement 11.4 [foz_us] 7.4-10.4 Automated blood neutrophils/100 leukocytes 87 % 42-75 Automated blood lymphocytes/100 leukocytes 9 % 12-44 Blood monocytes/100 leukocytes 3 % 0-12 Automated blood eosinophils/100 leukocytes 0 % 0-10 Automated blood basophils/100 leukocytes 0 % 0-10 Blood neutrophils automated count (number/volume) 14.2 10*3 1.8-7.8 Blood lymphocytes automated count (number/volume) 1.5 10*3 1.0-4.0 Blood monocytes automated count (number/volume) 0.6 10*3 0.0-1.0 Automated eosinophil count 0.0 10*3/uL 0.0-0.3 Automated blood basophil count (count/volume) 0.0 10*3/uL 0.0-0.1 Comprehensive metabolic panel - 03/23/18 13:10 Serum or plasma sodium measurement (moles/volume) 143 mmol/L 135-145 Serum or plasma potassium measurement (moles/volume) 3.7 mmol/L 3.6-5.0 Serum or plasma chloride measurement (moles/volume) 114 mmol/L 98-107 Carbon dioxide 14 mmol/L 21-32 Serum or plasma anion gap determination (moles/volume) 15 mmol/L 5-14 Serum or plasma urea nitrogen measurement (mass/volume) 9 mg/dL 7-18 Serum or plasma creatinine measurement (mass/volume) 0.73 mg/dL 0.60-1.30 Serum or plasma urea nitrogen/creatinine mass ratio 12 NRG Serum or plasma creatinine measurement with calculation of estimated glomerular filtration rate > NRG Serum or plasma glucose measurement (mass/volume) 135 mg/dL 70-105 Serum or plasma calcium measurement (mass/volume) 9.4 mg/dL 8.5-10.1 Serum or plasma total bilirubin measurement (mass/volume) 0.2 mg/dL 0.1-1.0 Serum or plasma alkaline phosphatase measurement (enzymatic activity/volume) 79 U/L 40-136 Serum or plasma aspartate aminotransferase measurement (enzymatic activity/ volume) 26 U/L 5-34 Serum or plasma alanine aminotransferase measurement (enzymatic activity/volume ) 17 U/L 0-55 Serum or plasma protein measurement (mass/volume) 8.0 g/dL 6.4-8.2 Serum or plasma albumin measurement (mass/volume) 4.7 g/dL 3.2-4.5 Serum or plasma amylase measurement (enzymatic activity/volume) - 03/23/18 13: 10 Serum or plasma amylase measurement (enzymatic activity/volume) 49 U /L 25-125 Lipase - 03/23/18 13:10 Lipase 5 U/L 8-78 Blood manual differential performed detection - 03/23/18 13:10 Blood monocytes/100 leukocytes 0 % NRG Manual blood segmented neutrophils/100 leukocytes 93 % NRG Blood band neutrophils/100 leukocytes 1 % NRG Manual blood lymphocytes/100 leukocytes 6 % NRG Manual eosinophils/100 leukocytes in nose 0 % NRG Manual blood basophils/100 leukocytes 0 % NRG Blood anisocytosis detection by light microscopy SLIGHT NRG Complete urinalysis with reflex to culture - 03/23/18 14:10 Urine color determination YELLOW NRG Urine clarity [...] NORMAL Urine leukocyte esterase detection by dipstick 2+ NEGATIVE Automated urine sediment erythrocyte count by [...] YES NRG Urine drug screening test - 03/23/18 14:10 Urine phencyclidine detection by screening method NEGATIVE [...] detection NEGATIVE NEGATIVE Bacterial urine culture - 03/23/18 14:10 Bacterial urine culture NG NRG Complete blood count (CBC) with automated white blood cell (WBC) differential - 03/31/18 06:27 Blood leukocytes automated count (number/volume) 10.5 10*3/uL 4.3-11.0 Blood erythrocytes automated count (number/volume) 4.31 10*6/uL 4.35-5.85 Venous blood hemoglobin measurement (mass/volume) 12.1 g/dL 11.5-16.0 Blood hematocrit (volume fraction) 37 % 35-52 Automated erythrocyte mean corpuscular volume 85 [foz_us] 80-99 Automated erythrocyte mean corpuscular hemoglobin (mass per erythrocyte) 28 pg 25-34 Automated erythrocyte mean corpuscular hemoglobin concentration measurement ( mass/volume) 33 g/dL 32-36 Automated erythrocyte distribution width ratio 16.6 % 10.0-14.5 Automated blood platelet count (count/volume) 325 10*3/uL 130-400 Automated blood platelet mean volume measurement 11.1 [foz_us] 7.4-10.4 Automated blood neutrophils/100 leukocytes 59 % 42-75 Automated blood lymphocytes/100 leukocytes 31 % 12-44 Blood monocytes/100 leukocytes 8 % 0-12 Automated blood eosinophils/100 leukocytes 1 % 0-10 Automated blood basophils/100 leukocytes 0 % 0-10 Blood neutrophils automated count (number/volume) 6.2 10*3 1.8-7.8 Blood lymphocytes automated count (number/volume) 3.3 10*3 1.0-4.0 Blood monocytes automated count (number/volume) 0.9 10*3 0.0-1.0 Automated eosinophil count 0.1 10*3/uL 0.0-0.3 Automated blood basophil count (count/volume) 0.0 10*3/uL 0.0-0.1 Comprehensive metabolic panel - 03/31/18 06:27 Serum or plasma sodium measurement (moles/volume) 138 mmol/L 135-145 Serum or plasma potassium measurement (moles/volume) 3.7 mmol/L 3.6-5.0 Serum or plasma chloride measurement (moles/volume) 109 mmol/L 98-107 Carbon dioxide 19 mmol/L 21-32 Serum or plasma anion gap determination (moles/volume) 10 mmol/L 5-14 Serum or plasma urea nitrogen measurement (mass/volume) 8 mg/dL 7-18 Serum or plasma creatinine measurement (mass/volume) 0.75 mg/dL 0.60-1.30 Serum or plasma urea nitrogen/creatinine mass ratio 11 NRG Serum or plasma creatinine measurement with calculation of estimated glomerular filtration rate > NRG Serum or plasma glucose measurement (mass/volume) 98 mg/dL 70-105 Serum or plasma calcium measurement (mass/volume) 8.8 mg/dL 8.5-10.1 Serum or plasma total bilirubin measurement (mass/volume) 0.2 mg/dL 0.1-1.0 Serum or plasma alkaline phosphatase measurement (enzymatic activity/volume) 77 U/L 40-136 Serum or plasma aspartate aminotransferase measurement (enzymatic activity/ volume) 25 U/L 5-34 Serum or plasma alanine aminotransferase measurement (enzymatic activity/volume ) 23 U/L 0-55 Serum or plasma protein measurement (mass/volume) 7.7 g/dL 6.4-8.2 Serum or plasma albumin measurement (mass/volume) 4.5 g/dL 3.2-4.5 Serum or plasma amylase measurement (enzymatic activity/volume) - 03/31/18 06: 27 Serum or plasma amylase measurement (enzymatic activity/volume) 83 U /L 25-125 Lipase - 03/31/18 06:27 Lipase 22 U/L 8-78 Complete urinalysis with reflex to culture - 03/31/18 06:40 Urine color determination YELLOW NRG Urine clarity determination CLEAR NRG Urine pH measurement by test strip 7 5-9 Specific gravity of urine by test strip 1.015 1.016- 1.022 Urine protein assay by test [...] NO NRG Urine drug screening test - 03/31/18 06:40 Urine phencyclidine detection by screening method NEGATIVE [...] automated white blood cell (WBC) differential - 04/09/18 19:13 Blood leukocytes automated count (number/volume) 13.0 10*3/uL 4.3-11.0 Blood erythrocytes automated count (number/volume) 4.19 10*6/uL 4.35-5.85 Venous blood hemoglobin measurement (mass/volume) 11.8 g/dL 11.5-16.0 Blood hematocrit (volume fraction) 36 % 35-52 Automated erythrocyte mean corpuscular volume 85 [foz_us] 80-99 Automated erythrocyte mean corpuscular hemoglobin (mass per erythrocyte) 28 pg 25-34 Automated erythrocyte mean corpuscular hemoglobin concentration measurement ( mass/volume) 33 g/dL 32-36 Automated erythrocyte distribution width ratio 16.3 % 10.0-14.5 Automated blood platelet count (count/volume) 377 10*3/uL 130-400 Automated blood platelet mean volume measurement 10.5 [foz_us] 7.4-10.4 Automated blood neutrophils/100 leukocytes 76 % 42-75 Automated blood lymphocytes/100 leukocytes 19 % 12-44 Blood monocytes/100 leukocytes 4 % 0-12 Automated blood eosinophils/100 leukocytes 0 % 0-10 Automated blood basophils/100 leukocytes 0 % 0-10 Blood neutrophils automated count (number/volume) 9.9 10*3 1.8-7.8 Blood lymphocytes automated count (number/volume) 2.5 10*3 1.0-4.0 Blood monocytes automated count (number/volume) 0.5 10*3 0.0-1.0 Automated eosinophil count 0.0 10*3/uL 0.0-0.3 Automated blood basophil count (count/volume) 0.1 10*3/uL 0.0-0.1 Comprehensive metabolic panel - 04/09/18 19:13 Serum or plasma sodium measurement (moles/volume) 140 mmol/L 135-145 Serum or plasma potassium measurement (moles/volume) 3.3 mmol/L 3.6-5.0 Serum or plasma chloride measurement (moles/volume) 107 mmol/L 98-107 Carbon dioxide 16 mmol/L 21-32 Serum or plasma anion gap determination (moles/volume) 17 mmol/L 5-14 Serum or plasma urea nitrogen measurement (mass/volume) 10 mg/dL 7-18 Serum or plasma creatinine measurement (mass/volume) 0.79 mg/dL 0.60-1.30 Serum or plasma urea nitrogen/creatinine mass ratio 13 NRG Serum or plasma creatinine measurement with calculation of estimated glomerular filtration rate > NRG Serum or plasma glucose measurement (mass/volume) 118 mg/dL 70-105 Serum or plasma calcium measurement (mass/volume) 9.1 mg/dL 8.5-10.1 Serum or plasma total bilirubin measurement (mass/volume) 0.3 mg/dL 0.1-1.0 Serum or plasma alkaline phosphatase measurement (enzymatic activity/volume) 77 U/L 40-136 Serum or plasma aspartate aminotransferase measurement (enzymatic activity/ volume) 29 U/L 5-34 Serum or plasma alanine aminotransferase measurement (enzymatic activity/volume ) 33 U/L 0-55 Serum or plasma protein measurement (mass/volume) 7.7 g/dL 6.4-8.2 Serum or plasma albumin measurement (mass/volume) 4.6 g/dL 3.2-4.5 Lipase - 04/09/18 19:13 Lipase 8 U/L 8-78 Complete urinalysis with reflex to culture - 04/09/18 21:28 Urine color determination YELLOW NRG Urine clarity determination CLEAR NRG Urine pH measurement by test strip 6.5 5-9 Specific gravity of urine by test strip 1.015 1.016- 1.022 Urine protein assay by test strip, semi-quantitative 2+ NEGATIVE Urine glucose detection by automated test strip NEGATIVE NEGATIVE Erythrocytes detection in urine sediment by light microscopy 2+ NEGATIVE Urine ketones detection by automated test strip 1+ NEGATIVE Urine nitrite detection by test strip [...] urine sediment by light microscopy NONE NRG Squamous epithelial cells detection in urine sediment by light microscopy 10-25 NRG Crystals detection in urine sediment by light microscopy NONE NRG Casts detection in urine sediment by light microscopy NONE NRG Mucus detection in urine sediment by light microscopy NEGATIVE NRG Complete urinalysis with reflex to culture NO NRG Urine drug screening test - 04/09/18 21:28 Urine phencyclidine detection by screening method NEGATIVE NEGATIVE Urine benzodiazepines detection by screening method POSITIVE NEGATIVE Urine cocaine detection NEGATIVE NEGATIVE Urine [...] NEGATIVE NEGATIVE Urine propoxyphene detection NEGATIVE NEGATIVE Encounters ACCT No. Visit Date/Time Discharge Status Pt. Type Provider Facility Loc./Unit Complaint [id number] 09/03/2013 10:04:00 09/03/2013 23:59:59 CLS Outpatient THUY NORMA AMBRIZ Jennifer [id number] 08/22/2010 13:08:00 08/22/2010 23:59:59 CLS Outpatient ROSYMOMO SNOWDEN APRN [id number] 09/24/2017 16:05:00 09/24/2017 23:59:59 CLS Outpatient MOMO WELLER APRN [facility] [id number] 09/24/2017 16:05:00 Document Registration [id number] 03/31/2018 06:09:00 03/31/2018 08:10:00 DIS Outpatient JAYSON NASH MD [facility] ER N/V [id number] 03/23/2018 12:51:00 03/23/2018 16:13:00 DIS Emergency JAYSON NASH MD [facility] ER ABD PAIN,VOMITING [id number] 02/28/2018 09:30:00 03/01/2018 13:11:00 DIS Outpatient EAGLE MENDIOLA, CASSANDRA Dutton [facility] SDC SKENE'S ABSCESS [id number] 10/05/2017 14:08:00 10/05/2017 16:15:00 DIS Emergency ROSA BRADY DO [facility] ER N/V/D [id number] 08/07/2017 18:09:00 08/07/2017 22:42:00 DIS Emergency SASHA CARLSON APRN [facility] ER STOMACH PAIN/VOMITING [id number] 03/11/2017 06:57:00 03/11/2017 09:42:00 DIS Emergency SHERMAN MENDIOLA, TATO Leiva [facility] ER VOMITING [id number] 02/08/2017 03:24:00 02/08/2017 07:33:00 DIS Outpatient JANNA ORTEGA MD [facility] ER VOMITING [id number] 01/07/2017 21:40:00 01/07/2017 23:57:00 DIS Emergency JAYSON NASH MD [facility] ER VOMITING/DIARRHEA [id number] 12/31/2016 11:11:00 01/01/2017 11:45:00 DIS Outpatient CASSANDRA GUILLERMO MD [facility] CHRONIC ABSCESS [id number] 12/30/2016 05:36:00 12/30/2016 13:18:00 DIS Outpatient CASSANDRA GUILLERMO MD [facility] PREOP CHRONIC ABSCESS [id number] 12/09/2016 11:51:00 12/10/2016 14:15:00 DIS Outpatient CASSANDRA GUILLERMO MD [facility] INCISION AND DRAINAGE OF BARTOLIN CYST [id number] 12/04/2016 13:10:00 12/04/2016 16:27:00 DIS Emergency SASHA CARLSON APRN [facility] ER SWOLLEN VAGINAL GLAND [id number] 07/15/2016 16:52:00 07/16/2016 09:53:00 DIS Outpatient CASSANDRA GUILLERMO MD [facility] CYST [id number] 07/12/2016 15:11:00 07/12/2016 16:33:00 DIS Emergency SASHA CARLSON APRN [facility] ER SKIN WOUND [id number] 04/29/2016 17:30:00 04/29/2016 19:33:00 DIS Emergency SASHA CARLSON APRN [facility] ER ABCESS ON VAGINA [id number] 03/04/2016 06:11:00 03/04/2016 08:38:00 DIS Emergency JAYSON NASH MD [facility] ER VOMITING,DIARRHEA, DEHYDRATION [id number] 03/04/2016 02:02:00 03/04/2016 05:14:00 DIS Emergency JAYOSN NASH MD [facility] ER VOMITING,NAUSEA, DIARRHEA [id number] 03/03/2016 22:20:00 03/04/2016 00:33:00 DIS Emergency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
== END 2018-04-09 21:30 | disposition home or self-care (01) ==
LOC: EDUNIT# 18:08 → ER 18:10
DX: R10.13 Epigastric pain (principal); F41.9 Anxiety disorder, unspecified; F31.9 Bipolar disorder, unspecified; Z87.891 Personal history of nicotine dependence; Z98.51 Tubal ligation status; Z87.59 Personal history of other complications of pregnancy, childbirth and the puerperium; Z87.19 Personal history of other diseases of the digestive system
CPT/HCPCS: 36415; 80053; 80306; 81000; 83690; 85025; 96361; 96374; 96375

== ENCOUNTER 2018-05-04 08:48 | Emergency (ER) | payer MEDICAID ==
[~2018-05-04] VITALS: Ht 149.9 cm; Wt 54.2 kg
[2018-05-04] MEDS ORDERED: NS IV 1000 ML 1,000 ML IV SCH (09:15)
[2018-05-04] MEDS ORDERED: FAMOTIDINE 20MG/2ML IV (PEPCID) IVP ONE (09:15)
[2018-05-04 09:24] LABS: BASOPHILS % (AUTO) 1 % (0-10); EOSINOPHILS # (AUTO) 0.1 10^3/uL (0.0-0.3); EOSINOPHILS % (AUTO) 1 % (0-10); HEMATOCRIT 36 % (35-52); HEMOGLOBIN 11.9 G/DL (11.5-16.0); LYMPHOCYTES # (AUTO) 2.5 X 10^3 (1.0-4.0); LYMPHOCYTES % (AUTO) 34 % (12-44); MEAN CORPUSCULAR HEMOGLOBIN 29 PG (25-34); MEAN CORPUSCULAR HGB CONC 33 G/DL (32-36); MEAN CORPUSCULAR VOLUME 86 FL (80-99); MEAN PLATELET VOLUME 10.9 FL (7.4-10.4); MONOCYTES # (AUTO) 0.4 X 10^3 (0.0-1.0); MONOCYTES % (AUTO) 5 % (0-12); NEUTROPHILS # (AUTO) 4.3 X 10^3 (1.8-7.8); NEUTROPHILS % (AUTO) 59 % (42-75); PLATELET COUNT 332 10^3/uL (130-400); RED BLOOD COUNT 4.16 10^6/uL (4.35-5.85); RED CELL DISTRIBUTION WIDTH 16.3 % (10.0-14.5); WHITE BLOOD COUNT 7.2 10^3/uL (4.3-11.0)
[2018-05-04] MEDS ORDERED: ONDANSETRON 4 MG/2 ML (SDV) Z0FRAN ONE (09:24)
[2018-05-04] MEDS ORDERED: NS (IVPB) 50 ML ONE (09:42)
[2018-05-04] MEDS ORDERED: raNItidine 50 MG/2 ML INJ (ZANTAC) IM/IV SCH (09:45)
[2018-05-04 09:47] LABS: ALANINE AMINOTRANSFERASE 24 U/L (0-55); ALBUMIN 4.7 GM/DL (3.2-4.5); ALKALINE PHOSPHATASE 72 U/L (40-136); BILIRUBIN,TOTAL 0.3 MG/DL (0.1-1.0); BUN/CREATININE RATIO 9; CALCIUM 8.8 MG/DL (8.5-10.1); CARBON DIOXIDE 15 MMOL/L (21-32); CHLORIDE 111 MMOL/L (98-107); CREATININE SERUM 0.74 MG/DL (0.60-1.30); GFR ESTIMATED > 60; GLUCOSE 127 MG/DL (70-105); LIPASE 11 U/L (8-78); POTASSIUM 3.5 MMOL/L (3.6-5.0); SODIUM 141 MMOL/L (135-145); TOTAL PROTEIN 7.5 GM/DL (6.4-8.2)
[2018-05-04 09:50] LABS: ACETAMINOPHEN < 10 UG/ML (10-30)
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
[2018-05-04] MEDS ORDERED: fentaNYL INJECTION 100 MCG/2 ML AMP IVP ONE (10:15)
[2018-05-04] MEDS ORDERED: PROMETHAZINE INJ 25 MG/ML (PHENERGAN) AMP IVP ONE (10:15)
--- OUTSIDE RECORDS SUMMARY | 2018-05-04 10:35 | XMS REPORT | Clinical Summary ---
Author Author [facility] Organization [facility] Address Unknown Phone Unavailable Care Team Providers Care Sap Sd Analyst Name Role Phone Self, Referral PCP Unavailable Kylee Flores MD Unavailable Source Comments Some departments are not documenting in the electronic medical record. If you do not see the information that you expected, contact Release of Information in the Health Information Management department at [phone] for further assistance in locating additional records.[facility] Allergies No Known Allergies Current Medications [...]
[2018-05-04 10:41] VITALS: BP 131/69
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
== END 2018-05-04 10:41 | disposition home or self-care (01) ==
LOC: EDUNIT# 08:48 → ER 08:50
DX: R10.13 Epigastric pain (principal); F41.9 Anxiety disorder, unspecified; F31.9 Bipolar disorder, unspecified; F12.10 Cannabis abuse, uncomplicated; Z87.891 Personal history of nicotine dependence; Z91.5 Personal history of self-harm; Z82.49 Family history of ischemic heart disease and other diseases of the circulatory system; Z87.448 Personal history of other diseases of urinary system; Z87.59 Personal history of other complications of pregnancy, childbirth and the puerperium; Z98.51 Tubal ligation status; Z87.19 Personal history of other diseases of the digestive system
CPT/HCPCS: 36415; 80053; 80320; 80329; 83690; 85025; 96361; 96365; 96375

== ENCOUNTER 2018-05-25 16:29 | Emergency (ER) | payer MEDICAID ==
[~2018-05-25] VITALS: Ht 152.4 cm; Wt 56.2 kg
[~2018-05-25 16:29] MED LIST changes: +HYDR-4226 PO; -HYDR-757 PO; -OXYC-197 PO; -OXYC-202 PO; +OXYC1TAB12 PO; +OXYC1TAB87 PO
[2018-05-25] MEDS: L.E.T. SYRINGE 5 ML TOP ONE (17:13)
[2018-05-25] MEDS: LIDOCAINE 1% INJ 20 ML 20 ML VIAL INJ ONE (17:41)
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
[2018-05-25] MEDS ORDERED: CLIN300C11 PO (17:51)
[2018-05-25] MEDS ORDERED: CIPR-225 PO (17:51)
[2018-05-25] MEDS: HYDROcodone/APAP 5 MG/325 MG (LORTAB) TAB PO ONE (17:53)
[2018-05-25 18:02] VITALS: BP 116/66
--- OUTSIDE RECORDS SUMMARY | 2018-05-25 19:05 | XMS REPORT | Clinical Summary ---
Author Author [facility] Organization [facility] Address Unknown Phone Unavailable Care Team Providers Care Forge Tender Name Role Phone Self, Referral PCP Unavailable Klyee Flores MD Unavailable Source Comments Some departments are not documenting in the electronic medical record. If you do not see the information that you expected, contact Release of Information in the Health Information Management department at [phone] for further assistance in locating additional records.[facility] Allergies No Known Allergies Current Medications [...]
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
[2018-06-07] MEDS ORDERED: METR500T PO (08:22)
== END 2018-05-25 18:00 | disposition home or self-care (01) ==
LOC: EDUNIT# 16:29 → ER 16:30
DX: N76.4 Abscess of vulva (principal); F41.9 Anxiety disorder, unspecified; F31.9 Bipolar disorder, unspecified; Z91.5 Personal history of self-harm; Z82.49 Family history of ischemic heart disease and other diseases of the circulatory system; Z87.59 Personal history of other complications of pregnancy, childbirth and the puerperium; Z87.891 Personal history of nicotine dependence; Z98.890 Other specified postprocedural states; Z98.51 Tubal ligation status; Z86.19 Personal history of other infectious and parasitic diseases; Z87.19 Personal history of other diseases of the digestive system
CPT/HCPCS: 87070; 87077; 87205; 99284

== ENCOUNTER 2018-08-31 14:20 | Emergency (ER) | payer MEDICAID ==
[~2018-08-31] VITALS: Ht 152.4 cm; Wt 54.4 kg
[~2018-08-31 14:20] MED LIST changes: +METR-197 PO; -METR500T21 PO
[2018-08-31] MEDS ORDERED: KETOROLAC 30 MG/ML VIAL IVP STA (14:46)
[2018-08-31] MEDS ORDERED: NS IV 1000 ML 1,000 ML IV SCH (14:46)
--- NOTE | 2018-08-31 14:58 | ED Abdominal Pain ---
General Chief Complaint: Abdominal/GI Problems Stated Complaint: ABD PAIN;VOMITING Nursing Triage Note: pt presents to ed with complaints of abdominal pain and vomiting x 4 hours. pt reports she has hx of pancreatitis and she drank last night. pt also reports she smokes marijuana. Sepsis Screen: No Definite Risk Source of Information: Patient, Other (significant other) Exam Limitations: No Limitations (OLMAN ESTEVEZ) History of Present Illness Date Seen by Provider: Aug 31, 2018 Time Seen by Provider: 14:34 Initial Comments 33 yo female patient presents for c/o left sided abdominal pain, nausea, and vomiting x4 hours. she does report a h/o chronic pancreatitis and states she did drink ETOH last night. she also reports smoking marijuana last night. she does have a h/o cyclic vomiting caused by marijuana. Patient states she has been "told several times that this is caused by marijuana." Patient states she sees Dr. Nash for the chronic pancreatitis and he is her PCP. Timing/Duration: 4-6 Hours, Constant Severity/Quality: Cramping Location: LUQ, LLQ Radiation: No Radiation Activities at Onset: Other (began several hours after drinking ETOH and smoking marijuana.) Modifying Factors: Worsens With Eating (OLMAN ESTEVEZ) Allergies and Home Medications Allergies Coded Allergies: No Known Drug Allergies (Verified , 12/31/16) Home Medications Ciprofloxacin HCl 500 Mg Tablet, 500 MG PO BID Prescribed by: JANNA JOHNSON on 05/25/18 1751 Clindamycin HCl 300 Mg Capsule, 300 MG PO QID Prescribed by: JANNA JOHNSON on 05/25/18 1751 Haloperidol 1 Mg Tablet, 1 MG PO Q8H PRN for NAUSEA/VOMITING-2ND LINE Prescribed by: CATRACHITA OLIVAS on 08/31/18 1656 Ibuprofen 800 Mg Tablet, 800 MG PO Q6H PRN for PAIN Prescribed by: CASSANDRA SANDOVAL on 02/28/18 1205 Metronidazole 500 Mg Tablet, 500 MG PO BID, (Reported) Ondansetron 4 Mg Tab.rapdis, 4 MG PO Q6H PRN for NAUSEA/VOMITING Prescribed by: JAYSON NASH on 03/23/18 1547 Ondansetron HCl 8 Mg Tablet, 8 MG PO Q8H PRN for NAUSEA/VOMITING-1ST LINE Prescribed by: CATRACHITA OLIVAS on 08/31/18 165 Oxycodone HCl/Acetaminophen 1 Each Tablet, 1-2 EACH PO Q4H Prescribed by: CASSANDRA SANDOVAL on 02/28/18 1205 Sulfamethoxazole/Trimethoprim 1 Each Tablet, 1 EACH PO BID Prescribed by: CATRACHITA OLIVAS on 08/31/181655 Patient Home Medication List Home Medication List Reviewed: Yes (OLMAN ESTEVEZ) Review of Systems Review of Systems Constitutional: chills; No fever; malaise EENTM: No Symptoms Reported Respiratory: No Symptoms Reported Cardiovascular: No Symptoms Reported Gastrointestinal: Denies Abdomen Distended; Abdominal Pain; Denies Blood Streaked Stools, Denies Constipated, Denies Diarrhea; Nausea, Poor Appetite, Poor Fluid Intake; Denies Rectal Bleeding; Vomiting Genitourinary: Denies Burning, Denies Frequency, Denies Flank Pain, Denies Pain Musculoskeletal: no symptoms reported Skin: no symptoms reported Psychiatric/Neurological: No Symptoms Reported (OLMAN ESTEVEZ) All Other Systems Reviewed Negative Unless Noted: Yes (Negative excepted noted.) (OLMAN ESTEVEZ) Past Xsznhnn-Dlpide-Wqifyy Hx Past Med/Social Hx: Reviewed and Corrections made (OLMAN ESTEVEZ) Patient Social History Alcohol Use: Regular Use Number of Drinks Today: CC Alcohol Beverage of Choice: Cheap Liquor Recreational Drug Use: Yes (drank tonight) Drug of Choice: CANNIBUS Smoking Status: Current Everyday Smoker Type Used: Cigarettes Former Smoker, Quit: February 14, 2018 2nd Hand Smoke Exposure: No Recent Foreign Travel: No Contact w/Someone Who Travel: No Recent Infectious Disease Expo: No Recent Hopitalizations: No Physical Abuse: No Sexual Abuse: No Mistreated: No Fear: No (OLMAN ESTEVEZ) Immunizations Up To Date Tetanus Booster (TDap): More than 5yrs (OLMAN ESTEVEZ) Seasonal Allergies Seasonal Allergies: Yes (OLMAN ESTEVEZ) Past Medical History Surgeries: Yes (I&D x3 of Bartholin cyct in GENITAL AREA, c/s x3, bartholin gland removal) Section, Tubal Ligation Respiratory: No Cardiac: No Neurological: No Reproductive Disorders: Yes (BARTHOLIN'S ABSCESSES) Female Reproductive Disorders: Denies RETURNED [employer] INS[employer]OR History: Tubal Ligation Sexually Transmitted Disease: Yes (CHLAMYDIA) HIV/AIDS: No Genitourinary: No Gastrointestinal: Yes (h/o cannabis hyperemesis ) Pancreatitis Musculoskeletal: No Endocrine: No HEENT: No Loss of Vision: Denies Hearing Impairment: Denies Cancer: No Psychosocial: Yes (OVERDOSE 2006) Anxiety, Suicide Attempts, Bipolar, Depression Integumentary: No Blood Disorders: No (OLMAN ESTEVEZ) Family Medical History Reviewed Nursing Family Hx (OLMAN ESTEVEZ) Congestive heart failure G8 SISTER Family history: Diabetes mellitus G8 SISTER History of - anemia 19 MOTHER G8 SISTER History of - disorder G8 SISTER (MS) No Family History of: Abdominal aortic aneurysm Alcoholism Cancer Dementia Family history: Alzheimer's disease Family history: Arthritis Family history: Asthma Family history: Breast disease Family history: Cardiovascular disease Family history: Gastrointestinal disease Family history: Hypertension Family history: Thyroid disorder Hereditary disease History of - respiratory disease Kidney disease Myocardial infarction Parkinson's disease Prostate cancer Psychotic disorder Seizure disorder Stroke No Pertinent Family Hx (OLMAN ESTEVEZ) Physical Exam Vital Signs Vital Signs - First Documented 08/31/18 08/31/18 14:38 17:05 Temp 96.5 Pulse 78 Resp 20 B/P (MAP) 112/70 (84) Pulse Ox 100 O2 Delivery Room Air (CATRACHITA OLIVAS) Vital Signs Capillary Refill : Less Than 3 Seconds (OLMAN ESTEVEZ) Height/Weight/BMI Height: 5'0" Weight: 120lbs. 9.0oz. [id number]; 22.6 BMI Method:Stated General Appearance: WD/WN, mild distress (patient is crying), other ( significant other is lying in the bed with the patient. ) HEENT: PERRL/EOMI, pharynx normal Neck: supple, normal inspection Respiratory: lungs clear, normal breath sounds, no respiratory distress, no accessory muscle use Cardiovascular: normal peripheral pulses, regular rate, rhythm, no edema, no murmur Peripheral Pulses: 2+ Dorsalis Pedis (R), 2+ Left Dors-Pedis (L), 2+ Radial Pulses (R), 2+ Radial Pulses (L) Gastrointestinal: normal bowel sounds, soft, no organomegaly; No distended; guarding (generalized guarding); No rebound; tenderness (generalized tenderness) ; No mass Extremities: no pedal edema, normal capillary refill Back: normal inspection, no CVA tenderness Neurologic/Psychiatric: alert, oriented x 3, other (tearful, anxious.) Skin: normal color, warm/dry (OLMAN ESTEVEZ) Progress/Results/Core Measures Results/Orders Lab Results Laboratory Tests Test 08/31/18 15:00 08/31/18 15:32 Range/Units White Blood Count 9.3 4.3-11.0 10^3/uL Red Blood Count 4.28 L 4.35-5.85 10^6/uL Hemoglobin 12.2 11.5-16.0 G/DL Hematocrit 37 35-52 % Mean Corpuscular Volume 86 80-99 FL Mean Corpuscular Hemoglobin 29 25-34 PG Mean Corpuscular Hemoglobin Concent 33 32-36 G/DL Red Cell Distribution Width 15.1 H 10.0-14.5 % Platelet Count 345 130-400 10^3/uL Mean Platelet Volume 10.9 H 7.4-10.4 FL Neutrophils (%) (Auto) 64 42-75 % Lymphocytes (%) (Auto) 29 12-44 % Monocytes (%) (Auto) 6 0-12 % Eosinophils (%) (Auto) 0 0-10 % Basophils (%) (Auto) 0 0-10 % Neutrophils # (Auto) 6.0 1.8-7.8 X 10^3 Lymphocytes # (Auto) 2.7 1.0-4.0 X 10^3 Monocytes # (Auto) 0.5 0.0-1.0 X 10^3 Eosinophils # (Auto) 0.0 0.0-0.3 10^3/uL Basophils # (Auto) 0.0 0.0-0.1 10^3/uL Sodium Level 143 135-145 MMOL/L Potassium Level 3.4 L 3.6-5.0 MMOL/L Chloride Level 111 H 98-107 MMOL/L Carbon Dioxide Level 19 L 21-32 MMOL/L Anion Gap 13 5-14 MMOL/L Blood Urea Nitrogen 9 7-18 MG/DL Creatinine 0.76 0.60-1.30 MG/DL Estimat Glomerular Filtration Rate > 60 BUN/Creatinine Ratio 12 Glucose Level 118 H 70-105 MG/DL Calcium Level 9.3 8.5-10.1 MG/DL Corrected Calcium 8.5-10.1 MG/DL Total Bilirubin 0.2 0.1-1.0 MG/DL Aspartate Amino Transf (AST/SGOT) 31 5-34 U/L Alanine Aminotransferase (ALT/SGPT) 31 0-55 U/L Alkaline Phosphatase 70 40-136 U/L C-Reactive Protein High Sensitivity 0.04 0.00-0.50 MG/DL Total Protein 7.6 6.4-8.2 GM/DL Albumin 4.6 H 3.2-4.5 GM/DL Lipase 8 8-78 U/L Serum Alcohol 37 H <10 MG/DL Urine Color YELLOW Urine Clarity SLIGHTLY CLOUDY Urine pH 8 5-9 Urine Specific [place] 1.010 L 1.016-1.022 Urine Protein 2+ H NEGATIVE Urine Glucose (UA) NEGATIVE NEGATIVE Urine Ketones NEGATIVE NEGATIVE Urine Nitrite NEGATIVE NEGATIVE Urine Bilirubin NEGATIVE NEGATIVE Urine Urobilinogen NORMAL NORMAL MG/DL Urine Leukocyte Esterase 1+ H NEGATIVE Urine RBC (Auto) 5+ H NEGATIVE Urine RBC 10-25 H /HPF Urine WBC 5-10 H /HPF Urine Crystals NONE /LPF Urine Bacteria LARGE H /HPF Urine Casts NONE /LPF Urine Mucus SMALL H /LPF Urine Culture Indicated YES Urine Opiates Screen NEGATIVE NEGATIVE Urine Oxycodone Screen NEGATIVE NEGATIVE Urine Methadone Screen NEGATIVE NEGATIVE Urine Propoxyphene Screen NEGATIVE NEGATIVE Urine Barbiturates Screen NEGATIVE NEGATIVE Ur Tricyclic Antidepressants Screen NEGATIVE NEGATIVE Urine Phencyclidine Screen NEGATIVE NEGATIVE Urine Amphetamines Screen NEGATIVE NEGATIVE Urine Methamphetamines Screen NEGATIVE NEGATIVE Urine Benzodiazepines Screen POSITIVE H NEGATIVE Urine Cocaine Screen NEGATIVE NEGATIVE Urine Cannabinoids Screen POSITIVE H NEGATIVE (CATRACHITA OLIVAS) My Orders Orders - CATRACHITA OLIVAS Ondansetron Injection (Zofran Injectio (08/31/18 15:45) Haloperidol Injection (Haldol Injectio (08/31/18 16:00) (CATRACHITA OLIVAS) Medications Given in ED Current Medications Medications Dose Ordered Sig/Deniz Route Start Time Stop Time Status Last Admin Dose Admin Haloperidol Lactate 5 mg ONCE ONCE IV 08/31/18 16:00 08/31/18 16:01 DC 08/31/18 16:02 5 MG Ondansetron HCl 4 mg ONCE ONCE IVP 08/31/18 15:00 08/31/18 15:01 DC 08/31/18 14:57 4 MG Ondansetron HCl 4 mg ONCE ONCE IVP 08/31/18 15:45 08/31/18 15:50 DC 08/31/18 15:55 4 MG (CATRACHITA OLIVAS) Vital Signs/I&O 08/31/18 08/31/18 14:38 17:05 Temp 96.5 Pulse 78 50 Resp 20 18 B/P (MAP) 112/70 (84) 132/70 (90) Pulse Ox 100 98 O2 Delivery Room Air (CATRACHITA OLIVAS) Blood Pressure Mean: 84 Progress Progress Note : Progress Note 1500 assumed care of patient from LEEANN Madsen. Patient's labs reviewed, she is continuing to have nausea and vomited twice since admission to the emergency department. Labs are all essentially normal, with the exception of her UA showing an early UTI. We'll give an additional 4 mg of Zofran IV. 1530 patient reports that she smokes marijuana, approximately 5 joints per day. Discussed the most likely cause of her cyclical vomiting is due to this. We discussed rehabilitation options, she is not interested at this time. Will give Haldol 5 mg IV. 161 patient reports symptoms have improved significantly. Discharge instructions and return precautions reviewed. No further nausea or vomiting. (CATRACHITA OLIVAS) Departure Impression Primary Impression: Cannabinoid hyperemesis syndrome Additional Impression: UTI (urinary tract infection) Qualified Codes: N30.01 - Acute cystitis with hematuria Disposition: HOME, SELF-CARE Condition: Improved Departure-Patient Inst. Decision time for Depature: 16:40 (CATRACHITA OLIVAS) Referrals: [facility] (PCP/Family) Primary Care Physician Patient Instructions: Nausea and Vomiting, Adult (DC), Urinary Tract Infection , Adult (DC) Add. Discharge Instructions: Establish care with a primary care provider. Increase her water intake, one bottle every 2 hours while awake. Empty her bladder every 2 hours while awake. Use Zofran for nausea and vomiting. Take your antibiotic for the urinary tract infection. Use the Haldol for vomiting related to marijuana use. Consider treatment for dependency on cannabinoids. Return to emergency department for new, acute health care problems. All discharge instructions reviewed with patient and/or family. Voiced understanding. Scripts Haloperidol (Haloperidol) 1 Mg Tablet 1 MG PO Q8H PRN for NAUSEA/VOMITING-2ND LINE, #12 TAB 0 Refills Prov: CATRACHITA OLIVAS 08/31/18 Ondansetron HCl (Zofran) 8 Mg Tablet 8 MG PO Q8H PRN for NAUSEA/VOMITING-1ST LINE, #12 TAB 0 Refills Prov: CATRACHITA OLIVAS 08/31/18 Sulfamethoxazole/Trimethoprim (Bactrim Ds Tablet) 1 Each Tablet 1 EACH PO BID, #6 TAB Prov: CATRACHITA OLIVAS 08/31/18 OLMAN ESTEVEZ Aug 31, 2018 14:58 CATRACHITA OLIVAS Aug 31, 2018 16:29
[2018-08-31] MEDS ORDERED: ONDANSETRON 4 MG/2 ML (SDV) Z0FRAN IVP ONE ×2 (15:00→15:45)
[2018-08-31 15:09] LABS: BASOPHILS % (AUTO) 0 % (0-10); EOSINOPHILS % (AUTO) 0 % (0-10); HEMATOCRIT 37 % (35-52); HEMOGLOBIN 12.2 G/DL (11.5-16.0); LYMPHOCYTES # (AUTO) 2.7 X 10^3 (1.0-4.0); LYMPHOCYTES % (AUTO) 29 % (12-44); MEAN CORPUSCULAR HEMOGLOBIN 29 PG (25-34); MEAN CORPUSCULAR HGB CONC 33 G/DL (32-36); MEAN CORPUSCULAR VOLUME 86 FL (80-99); MEAN PLATELET VOLUME 10.9 FL (7.4-10.4); MONOCYTES # (AUTO) 0.5 X 10^3 (0.0-1.0); MONOCYTES % (AUTO) 6 % (0-12); NEUTROPHILS % (AUTO) 64 % (42-75); PLATELET COUNT 345 10^3/uL (130-400); RED BLOOD COUNT 4.28 10^6/uL (4.35-5.85); RED CELL DISTRIBUTION WIDTH 15.1 % (10.0-14.5); WHITE BLOOD COUNT 9.3 10^3/uL (4.3-11.0)
[2018-08-31 15:30] LABS: ALANINE AMINOTRANSFERASE 31 U/L (0-55); ALBUMIN 4.6 GM/DL (3.2-4.5); ALKALINE PHOSPHATASE 70 U/L (40-136); BILIRUBIN,TOTAL 0.2 MG/DL (0.1-1.0); BUN/CREATININE RATIO 12; CALCIUM 9.3 MG/DL (8.5-10.1); CARBON DIOXIDE 19 MMOL/L (21-32); CHLORIDE 111 MMOL/L (98-107); CREATININE SERUM 0.76 MG/DL (0.60-1.30); GFR ESTIMATED > 60; GLUCOSE 118 MG/DL (70-105); LIPASE 8 U/L (8-78); POTASSIUM 3.4 MMOL/L (3.6-5.0); SODIUM 143 MMOL/L (135-145); TOTAL PROTEIN 7.6 GM/DL (6.4-8.2)
[2018-08-31 15:41] LABS: BILIRUBIN,URINE NEGATIVE (NEGATIVE); CLARITY,URINE SLIGHTLY CLOUDY; COLOR,URINE YELLOW; GLUCOSE, URINE (UA) NEGATIVE (NEGATIVE); KETONES,URINE NEGATIVE (NEGATIVE); LEUKOCYTE ESTERASE ,URINE 1+ (NEGATIVE); NITRITE,URINE NEGATIVE (NEGATIVE); PH,URINE 8 (5-9); PROTEIN,URINE 2+ (NEGATIVE); UROBILINOGEN,URINE NORMAL (NORMAL)
[2018-08-31 15:51] LABS: BACTERIA,URINE LARGE /HPF
[2018-08-31 15:54] LABS: AMPHETAMINE SCREEN, URINE NEGATIVE (NEGATIVE); BARBITURATE SCREEN URINE NEGATIVE (NEGATIVE); BENZODIAZEPINES SCREEN URINE POSITIVE (NEGATIVE); CANNABINOID SCREEN, URINE POSITIVE (NEGATIVE); COCAINE SCREEN URINE NEGATIVE (NEGATIVE); METHADONE STAT NEGATIVE (NEGATIVE); METHAMPHETAMINE SCREEN URINE S NEGATIVE (NEGATIVE); OPIATE SCREEN URINE NEGATIVE (NEGATIVE); OXYCODONE STAT NEGATIVE (NEGATIVE); PROPOXYPHENE STAT NEGATIVE (NEGATIVE); TRICYCLIC ANTIDEPRESSANTS SCRE NEGATIVE (NEGATIVE)
[2018-08-31] MEDS ORDERED: HALOPERIDOL 5 MG/ML (HALDOL) AMP IV ONE (16:00)
[2018-08-31] MEDS ORDERED: HALO1TAB PO (16:56)
[2018-08-31] MEDS ORDERED: SULF1TAB35 PO (16:56)
[2018-08-31] MEDS ORDERED: ONDA8TAB6 PO (16:56)
[2018-08-31 17:05] VITALS: BP 132/70
--- OUTSIDE RECORDS SUMMARY | 2018-08-31 17:24 | XMS REPORT | Clinical Summary ---
Author Author [facility] Organization [facility] Address Unknown Phone Unavailable Care Team Providers Care Statistics Teacher Name Role Phone Self, Referral PCP Unavailable Kylee Flores MD Unavailable Source Comments Some departments are not documenting in the electronic medical record. If you do not see the information that you expected, contact Release of Information in the Health Information Management department at [phone] for further assistance in locating additional records.[facility] Allergies No Known Allergies Medications End Date Status Medication Sig Dispensed Refills Start Date Active oxycodone/acetaminophen Take 1-2 Tabs 30 0 06/25/200 (PERCOCET) 5/325 mg by mouth 8 tablet Every 4-6 Hours as needed for Pain. Active ibuprofen (MOTRIN) 600 mg Take 1 Tab by 30 0 30/200 tablet mouth Every 6 8 Hours as needed for Pain. Active docusate (COLACE) 100 mg Take 1 Cap by 60 1 200 capsule mouth Twice 8 Daily as needed for Constipation. Active ferrous sulfate (IRON) Take 1 Tab by 60 1 06/25/200 325 mg (65 mg Iron) mouth Twice 8 tablet Daily With Meals. Active Problems Problem Noted Date 06/25/2008 Anemia of mother, with delivery(648.21) 06/25/2008 Premature rupture of membranes in , delivered 06/25/2008 Family History Medical History Relation Name Comments Stroke Maternal Grandmother Relation Name Status Comments Maternal Grandmother Social History Date Tobacco Use Types Packs/Day Years Used Quit: 12/26/2007 Former Smoker Cigarettes 0.25 Alcohol Use Drinks/Week oz/Week Comments No Sex Assigned at Date Recorded Not on file Industry Job Start Date Occupation Not on file Not on file Not on file Travel End Travel History Travel Start No recent travel history available. Last Filed Vital Signs Time Taken Vital Sign Reading 06/25/2008 3:00 PM CDT Blood Pressure 116/72 06/25/2008 3:00 PM CDT Pulse 106 06/25/2008 3:00 PM CDT Temperature 37.3 C (99.1 F) - Respiratory Rate - 06/25/2008 3:00 PM CDT Oxygen Saturation 100% - Inhaled Oxygen - Concentration 06/22/2008 8:00 AM CDT Weight 65.3 kg (144 lb) 06/22/2008 8:00 AM CDT Height 152.4 cm (5') 06/22/2008 8:00 AM CDT Body Mass Index 28.12 Plan of Treatment Health Maintenance Due Date Last Done Comments PHYSICAL (COMPREHENSIVE) 1992 EXAM DTAP/TDAP VACCINES (1 - 2003 Tdap) CERVICAL CANCER SCREENING 2015 INFLUENZA VACCINE 04/26/2018 HIV SCREENING Completed 06/22/2008 Results Not on filefrom Last 3 Months
== END 2018-08-31 17:05 | disposition home or self-care (01) ==
LOC: EDUNIT# 14:20 → ER 14:21
DX: F12.188 Cannabis abuse with other cannabis-induced disorder (principal); R11.10 Vomiting, unspecified; N39.0 Urinary tract infection, site not specified; F41.9 Anxiety disorder, unspecified; F31.9 Bipolar disorder, unspecified; F10.10 Alcohol abuse, uncomplicated; Z87.891 Personal history of nicotine dependence; Z87.19 Personal history of other diseases of the digestive system; Z98.51 Tubal ligation status; Z91.5 Personal history of self-harm; Z98.890 Other specified postprocedural states; Z86.19 Personal history of other infectious and parasitic diseases; Z82.49 Family history of ischemic heart disease and other diseases of the circulatory system
CPT/HCPCS: 36415; 80053; 80306; 80320; 81000; 83690; 84703; 85025; 86141; 87088

== ENCOUNTER 2018-09-19 19:03 | Emergency (ER) | payer MEDICAID ==
[~2018-09-19 19:03] MED LIST changes: +HALO1TAB PO; +ONDA8TAB6 PO
--- OUTSIDE RECORDS SUMMARY | 2018-09-19 19:23 | XMS REPORT | Clinical Summary ---
Author Author [facility] Organization [facility] Address Unknown Phone Unavailable Care Team Providers Care Healthcare Financial Analyst Name Role Phone Self, Referral PCP Unavailable Kylee Flores MD Unavailable Source Comments Some departments are not documenting in the electronic medical record. If you do not see the information that you expected, contact Release of Information in the Health Information Management department at [phone] for further assistance in locating additional records.[facility] Allergies No Known Allergies Medications End Date [...]
== END 2018-09-19 20:47 | disposition left against medical advice (07) ==
LOC: EDUNIT# 19:03 → ER 19:05
DX: Z20.2 Contact with and (suspected) exposure to infections with a predominantly sexual mode of transmission (principal)